=== PATIENT | female | born 1935 | race Caucasian/White ===

== ENCOUNTER 2017-03-15 13:34 | Inpatient (IN) | payer MEDICARE ==
[2017-03-15] MEDS ORDERED: MAGNESIUM SULFATE-D5W PMX 1 GM in DEXTROSE/WATER 1 100ML.BAG IVPB STA (14:01)
[2017-03-15] MEDS ORDERED: methylPREDNISolone SOD SUCCI 125 MG/2 ML VIAL IV STA (14:01)
[2017-03-15] MEDS ORDERED: IPRATROPIUM-ALBUTEROL 3 ML NEB INHALATION STA (14:01)
[2017-03-15] MEDS ORDERED: SODIUM CHLORIDE 0.9% 1,000 ML IV STA (14:01)
--- NOTE | 2017-03-15 14:05 | ED ---
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 She was sent here from a clinic for evaluation she does have an oxygen concentrator which is not helping. The patient denies any chest pain is very severe dyspnea and dyspnea on exertion. MD Complaint: shortness of breath, cough - Related Data Home Medications Medication Instructions Recorded Confirmed Levothyroxine Sodium [Synthroid] 50 mcg PO DAILY 04/01/14 03/15/17 Metoprolol Tartrate [Lopressor] 12.5 mg PO BID 04/01/14 03/15/17 levETIRAcetam [Keppra] 1,000 mg PO BID 04/01/14 03/15/17 Multivitamins, Thera [Multivitamin 1 tab PO DAILY 06/22/14 03/15/17 (formulary)] Budesonide [Pulmicort] 0.5 mg INHALATION RT-BID 04/01/15 03/15/17 Donepezil [Aricept] 10 mg PO BID 04/01/15 03/15/17 Cranberry Fruit Concentrate [Azo 500 mg PO BID 03/15/17 03/15/17 Cranberry] Vitamin B Complex 1 cap PO DAILY 03/15/17 03/15/17 Allergies Allergy/AdvReac Type Severity Reaction Status Date / Time alprazolam [From Xanax] AdvReac Hallucinati Verified 03/15/17 14:39 ons lorazepam [From Ativan] AdvReac Hallucinati Verified 03/15/17 14:39 ons phenytoin sodium AdvReac Hallucinati Verified 03/15/17 14:39 [From Dilantin] ons Review of Systems ROS Statement: Those systems with pertinent positive or pertinent negative responses have been documented in the HPI. ROS Other: All systems not noted in ROS Statement are negative. Past Medical History Past Medical History: Asthma, Heart Failure, COPD, CVA/TIA, Dementia, GERD/ Reflux, Hearing Disorder / Deafness, Hyperlipidemia, Hypertension, Myocardial Infarction ([place]), Osteoarthritis (OA), Pneumonia, Seizure Disorder, Sleep Apnea/ CPAP/BIPAP, Thyroid Disorder Additional Past Medical History / Comment(s): hypothyroid, UTI, FEBRILE SEIZURES , TIA,TINNITUS, MURMUR BRONCHITIS,EMPHYSEMA,UTI, VERY [place], STATED NEEDS NEW GLASSES(FOR READING), SLEEP APNEA BUT DOES'NT USE CPAP MACHINE,PAST HX C-DIFF DATE UNK Last Myocardial Infarction Date:: UNK History of Any Multi-Drug Resistant Organisms: None Reported Past Surgical History: Back Surgery Additional Past Surgical History / Comment(s): LAMECTOMY, CARPAL TUNNEL, RT HAND SX Past Anesthesia/Blood Transfusion Reactions: No Reported Reaction Past Psychological History: Anxiety Smoking Status: Never smoker Past Alcohol Use History: None Reported Past Drug Use History: None Reported - Past Family History Father Additional Family Medical History / Comment(s): AT AGE 89 Mother Family Medical History: Hypertension Additional Family Medical History / Comment(s): AT AGE 47. HAD HX RHEUMATIC FEVER General Exam - General Exam Comments Initial Comments: This is a well-developed asthenic appearing female who is in respiratory distress Limitations: no limitations General appearance: alert, anxious, in distress Head exam: Present: atraumatic, normocephalic, normal inspection Eye exam: Present: normal appearance, PERRL, EOMI. Absent: scleral icterus, conjunctival injection, periorbital swelling ENT exam: Present: normal exam, mucous membranes moist Neck exam: Present: normal inspection. Absent: tenderness, meningismus, lymphadenopathy Respiratory exam: Present: wheezes, accessory muscle use, decreased breath sounds. Absent: respiratory distress, rales, rhonchi, stridor Cardiovascular Exam: Present: regular rate, normal rhythm, normal heart sounds. Absent: systolic murmur, diastolic murmur, rubs, gallop, clicks GI/Abdominal exam: Present: soft, normal bowel sounds. Absent: distended, tenderness, guarding, rebound, rigid Extremities exam: Present: normal inspection, full ROM, normal capillary refill. Absent: tenderness, pedal edema, joint swelling, calf tenderness Back exam: Present: normal inspection Neurological exam: Present: alert, oriented X3, CN II-XII intact Psychiatric exam: Present: normal affect, normal mood Skin exam: Present: warm, dry, intact, normal color. Absent: rash Course Vital Signs 03/15/17 03/15/17 03/15/17 13:49 14:30 14:41 Temperature 97.9 F Pulse Rate 85 88 88 Respiratory 28 H Rate Blood Pressure 159/105 O2 Sat by Pulse 88 L Oximetry - Reevaluation(s) Reevaluation #1: 03/15/17 15:57 Reevaluation patient reveals minimal improvement thus far. Medical Decision Making - Medical Decision Making Reevaluation patient reveals she still feeling very short of breath so wheezing hypoxemic. She will be admitted for inpatient treatment. - Lab Data Result diagrams: 03/15/17 14:10 03/15/17 14:10 Lab Results 03/15/17 03/15/17 03/15/17 Range/Units 14:10 14:10 14:10 WBC 6.5 (3.8-10.6) k/uL RBC 4.18 (3.80-5.40) m/uL Hgb 13.1 (11.4-16.0) gm/dL Hct 42.1 (34.0-46.0) % MCV 100.7 H (80.0-100.0) fL MCH 31.4 (25.0-35.0) pg MCHC 31.2 (31.0-37.0) g/dL RDW 14.6 (11.5-15.5) % Plt Count 247 (150-450) k/uL Neutrophils % 54 % Lymphocytes % 29 % Monocytes % 7 % Eosinophils % 7 % Basophils % 1 % Neutrophils # 3.5 (1.3-7.7) k/uL Lymphocytes # 1.9 (1.0-4.8) k/uL Monocytes # 0.5 (0-1.0) k/uL Eosinophils # 0.5 (0-0.7) k/uL Basophils # 0.1 (0-0.2) k/uL Hypochromasia Slight Macrocytosis Slight PT (9.0-12.0) sec INR (<1.2) APTT (22.0-30.0) sec Sodium 142 (137-145) mmol/L Potassium 4.6 (3.5-5.1) mmol/L Chloride 108 H (98-107) mmol/L Carbon Dioxide 23 (22-30) mmol/L Anion Gap 11 mmol/L BUN 13 (7-17) mg/dL Creatinine 0.60 (0.52-1.04) mg/dL Est GFR (MDRD) Af Amer >60 (>60 ml/min/1.73 sqM) Est GFR (MDRD) Non-Af >60 (>60 ml/min/1.73 sqM) Glucose 111 H (74-99) mg/dL Calcium 10.3 H (8.4-10.2) mg/dL Magnesium 1.8 (1.6-2.3) mg/dL Total Bilirubin 0.5 (0.2-1.3) mg/dL AST 27 (14-36) U/L ALT 32 (9-52) U/L Alkaline Phosphatase 168 H (38-126) U/L Total Creatine Kinase 75 (30-135) U/L CK-MB (CK-2) 2.6 H* (0.0-2.4) ng/mL CK-MB (CK-2) Rel Index 3.5 Troponin I <0.012 (0.000-0.034) ng/mL NT-Pro-B Natriuret Pep pg/mL Total Protein 7.2 (6.3-8.2) g/dL Albumin 3.8 (3.5-5.0) g/dL 03/15/17 03/15/17 Range/Units 14:10 14:27 WBC (3.8-10.6) k/uL RBC (3.80-5.40) m/uL Hgb (11.4-16.0) gm/dL Hct (34.0-46.0) % MCV (80.0-100.0) fL MCH (25.0-35.0) pg MCHC (31.0-37.0) g/dL RDW (11.5-15.5) % Plt Count (150-450) k/uL Neutrophils % % Lymphocytes % % Monocytes % % Eosinophils % % Basophils % % Neutrophils # (1.3-7.7) k/uL Lymphocytes # (1.0-4.8) k/uL Monocytes # (0-1.0) k/uL Eosinophils # (0-0.7) k/uL Basophils # (0-0.2) k/uL Hypochromasia Macrocytosis PT 10.9 (9.0-12.0) sec INR 1.1 (<1.2) APTT 24.7 (22.0-30.0) sec Sodium (137-145) mmol/L Potassium (3.5-5.1) mmol/L Chloride (98-107) mmol/L Carbon Dioxide (22-30) mmol/L Anion Gap mmol/L BUN (7-17) mg/dL Creatinine (0.52-1.04) mg/dL Est GFR (MDRD) Af Amer (>60 ml/min/1.73 sqM) Est GFR (MDRD) Non-Af (>60 ml/min/1.73 sqM) Glucose (74-99) mg/dL Calcium (8.4-10.2) mg/dL Magnesium (1.6-2.3) mg/dL Total Bilirubin (0.2-1.3) mg/dL AST (14-36) U/L ALT (9-52) U/L Alkaline Phosphatase (38-126) U/L Total Creatine Kinase (30-135) U/L CK-MB (CK-2) (0.0-2.4) ng/mL CK-MB (CK-2) Rel Index Troponin I (0.000-0.034) ng/mL NT-Pro-B Natriuret Pep 732 pg/mL Total Protein (6.3-8.2) g/dL Albumin (3.5-5.0) g/dL - Radiology Data Radiology results: report reviewed (I did review the imaging and reports no evidence of acute pulmonary infiltrates), image reviewed Critical Care Time Critical Care Time: Yes Critical Care Time: 31 minutes of critical care time which includes initial presentation with history physical labs x-rays reevaluation the patient several occasions. Discussed with the patient regarding findings discussed with the main physician admission orders and documentation of the above. Disposition Clinical Impression: Adult respiratory distress syndrome, Acute exacerbation of chronic obstructive airways disease, Hypoxemia Disposition: ADMITTED IP TO THIS [facility] Condition: Stable Referrals: Kilo De La Paz MD [Primary Care Provider] - 1-2 days
[2017-03-15 14:34] LABS: Basophils # (A) 0.1 k/uL (0-0.2); Basophils % (A) 1 %; CH 30.8; CHCM 30.7; Eosinophils # (A) 0.5 k/uL (0-0.7); Eosinophils % (A) 7 %; HCT 42.1 % (34.0-46.0); HDW 2.43; HGB 13.1 gm/dL (11.4-16.0); Hypochromasia Slight; Luc # (Auto) 0.13; Luc % (Auto) 2; Lymphocytes # (A) 1.9 k/uL (1.0-4.8); Lymphocytes % (A) 29 %; MCH 31.4 pg (25.0-35.0); MCHC 31.2 g/dL (31.0-37.0); MCV 100.7 fL (80.0-100.0); Macrocytosis Slight; Mean Platelet Volume 7.5; Monocytes # (A) 0.5 k/uL (0-1.0); Monocytes % (A) 7 %; Neutrophils # (A) 3.5 k/uL (1.3-7.7); Neutrophils % (A) 54 %; RBC 4.18 m/uL (3.80-5.40); RDW 14.6 % (11.5-15.5); WBC 6.5 k/uL (3.8-10.6); WBC (Perox) 6.78
[2017-03-15 14:48] LABS: ALT 32 U/L (9-52); AST 27 U/L (14-36); Alkaline Phosphatase 168 U/L (38-126); Anion Gap 11 mmol/L; Blood Urea Nitrogen 13 mg/dL (7-17); Calcium 10.3 mg/dL (8.4-10.2); Carbon Dioxide 23 mmol/L (22-30); Chloride 108 mmol/L (98-107); Glucose 111 mg/dL (74-99); Magnesium 1.8 mg/dL (1.6-2.3); Non-African American GFR(MDRD) >60 (>60 ml/min/1.73 sqM); Potassium 4.6 mmol/L (3.5-5.1); Sodium 142 mmol/L (137-145); Total Bilirubin 0.5 mg/dL (0.2-1.3); Total Protein 7.2 g/dL (6.3-8.2)
[2017-03-15 14:53] LABS: INR 1.1 (<1.2); Partial Thromboplastin Time 24.7 sec (22.0-30.0); Prothrombin Time 10.9 sec (9.0-12.0)
[2017-03-15 14:54] LABS: Creatine Kinase 75 U/L (30-135)
--- NOTE | 2017-03-15 15:03 | XR ---
EXAMINATION TYPE: XR chest 2V DATE OF EXAM: 03/15/2017 COMPARISON: 08/01/15 HISTORY: Shortness of breath TECHNIQUE: Frontal and lateral views of the chest are obtained. FINDINGS: Scattered senescent parenchymal changes noted. Hyperinflation compatible with COPD. No evidence for infiltrate. No evidence for atelectasis. Heart size is stable. Mediastinal structures are stable and grossly unremarkable. No evidence for hilar prominence. Degenerative changes dorsal spine. IMPRESSION: 1. No evidence for acute pulmonary disease.
[2017-03-15 15:06] LABS: Troponin I <0.012 ng/mL (0.000-0.034)
[2017-03-15 15:23] LABS: Creatine Kinase MB 2.6 ng/mL (0.0-2.4)
[2017-03-15] MEDS: SODIUM CHLORIDE 0.9% 1,000 ML IV SCH ×2 (17:56→22:43)
[2017-03-15] MEDS: BUDESONIDE 1 MG/2 ML NEBU INHALATION SCH (19:50)
[2017-03-15] MEDS: IPRATROPIUM-ALBUTEROL 3 ML NEB INHALATION SCH ×2 (19:50→23:44)
[2017-03-15 20:49] LABS: Glucose,Whole Blood 130 mg/dL (75-99)
[2017-03-15] MEDS ORDERED: NON-FORMULARY DRUG (Cranberry Fruit Concentrate [Azo Cranberry] 500 MG) PO SCH (21:00)
[2017-03-15] MEDS: methylPREDNISolone SOD SUCCI 40 MG/ML 1 ML VIAL IV SCH (22:42)
[2017-03-15] MEDS: DONEPEZIL 10 MG TAB PO SCH (22:42)
[2017-03-15] MEDS: levETIRAcetam 500 MG TAB PO SCH (22:42)
[2017-03-15] MEDS: METOPROLOL TARTRATE 12.5 MG TAB PO SCH (22:43)
[2017-03-15] MEDS: ACETAMINOPHEN TAB 325 MG TAB PO PRN (23:27)
[2017-03-16] MEDS ORDERED: methylPREDNISolone SOD SUCCI 125 MG/2 ML VIAL IV SCH
[2017-03-16] MEDS: IPRATROPIUM-ALBUTEROL 3 ML NEB INHALATION SCH ×6 (03:11→23:33)
--- NOTE | 2017-03-16 05:02 | HP ---
HISTORY AND PHYSICAL DATE OF ADMISSION: 03/15/2017 PRESENTING COMPLAINT: Short of breath, wheezing. HISTORY OF PRESENTING COMPLAINT: A pleasant 81-year-old patient of Dr. De La Paz. Chronic stable medical conditions include dementia, GERD, hard of hearing, hyperlipidemia, hypertension, seizure, sleep apnea, hypothyroid. Patient has got home oxygen. Uses a walker to get about. Patient presented with worsening short of breath, cough. Slight congestion, no sputum, not able to breathe. Home oxygen remains. No fever. Decreased appetite. Patient is hard of hearing. REVIEW OF SYSTEMS: CONSTITUTIONAL: Tired. HEENT: Decreased hearing. RESPIRATORY: As above. CARDIOVASCULAR: None. GASTROINTESTINAL: Heartburn. GENITOURINARY: None. MUSCULOSKELETAL: Some pain in different joints. DERMATOLOGICAL: None. HEMATOLOGIC: None. LYMPHATIC: None. PSYCHIATRY: Forgetful. NEUROLOGICAL: None. PAST HISTORY: Past history of stroke, dementia, GERD, hard of hearing, hyperlipidemia, hypertension, [place], osteoarthritis, seizures, obstructive sleep apnea, hypothyroid, home oxygen. PAST SURGICAL HISTORY: Back surgery, carpal tunnel right hand. SOCIAL HISTORY: No smoking. No alcohol. Lives with daughter. Use to work in the factory. FAMILY HISTORY: Reviewed, noncontributory to presentation. HOME MEDICATIONS: 1. Keppra 1000 mg p.o. b.i.d. 2. Vitamin B complex 1 capsule p.o. daily. 3. Multivitamin 1 tablet p.o. daily. 4. Lopressor 12.5 b.i.d. 5. Synthroid 50 mcg p.o. daily. 6. Aricept 10 mg p.o. b.i.d. 7. Azo cranberry 500 mg p.o. b.i.d. 8. Pulmicort 0.5 nebulizer b.i.d. ALLERGIES: Allergies to XANAX, ATIVAN, DILANTIN causing hallucinations. PHYSICAL EXAMINATION: On examination, temperature 97.9 pulse 85, respiration 20, blood pressure 159/105, pulse 88% on 2 L. GENERAL APPEARANCE: Sitting up, short of breath. EYES: Pupils equal. Conjunctivae normal. HENT: Oral cavity normal. NECK: JVD not raised. Mass not palpable. RESPIRATORY: Effort increased. LUNGS: Diminished breath sounds. Prolonged expiration. CARDIOVASCULAR: First and second sounds normal. No edema. ABDOMEN: Soft, nontender. Liver and spleen not palpable. LYMPHATIC: No lymph nodes palpable in the neck or axillae. PSYCHIATRY: Able to answer simple questions. Mood affect anxious appearing. NEUROLOGICAL: Pupils equal. Cranial nerves grossly intact. Power and sensation grossly intact. MUSCULOSKELETAL: Evidence of osteoarthritis of different joints. INVESTIGATIONS: White count 6.5, hemoglobin 13.1. Potassium 4.6. BUN and creatinine normal. Troponin negative. Chest x-ray nil acute. ASSESSMENT: 1. 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 2. Alzheimer's dementia, late onset type. 3. Gastroesophageal reflux disease. 4. Hard of hearing. 5. Hyperlipidemia. 6. Hypertension. 7. Primary osteoarthritis multiple joints, bilateral. 8. Obstructive sleep apnea. 9. Hypothyroid. 10.Chronic hypoxic respiratory failure on home oxygen. 11.Gait dysfunction, uses a wheel walker. PLAN: Patient is put on DuoNeb, nebulized bronchodilators. Home medications are resumed. Care was discussed with the patient. Questions were answered. MMODL / IJN: [id number] /
[2017-03-16] MEDS: methylPREDNISolone SOD SUCCI 40 MG/ML 1 ML VIAL IV SCH ×3 (06:04→21:45)
[2017-03-16] MEDS: LEVOTHYROXINE 50 MCG TAB PO SCH (06:04)
[2017-03-16 07:07] LABS: Glucose,Whole Blood 116 mg/dL (75-99)
[2017-03-16] MEDS: BUDESONIDE 1 MG/2 ML NEBU INHALATION SCH ×2 (07:24→19:10)
[2017-03-16] MEDS: DONEPEZIL 10 MG TAB PO SCH ×2 (09:49→21:45)
[2017-03-16] MEDS: levETIRAcetam 500 MG TAB PO SCH ×2 (09:50→21:44)
[2017-03-16] MEDS: METOPROLOL TARTRATE 12.5 MG TAB PO SCH ×2 (09:50→21:44)
[2017-03-16 11:38] LABS: Glucose,Whole Blood 138 mg/dL (75-99)
[2017-03-16] MEDS: INSULIN LISPRO (humaLOG) 300 UNIT/3 ML VIAL SQ SCH ×3 (12:30→21:42)
[2017-03-16] MEDS: B COMPLEX-VIT C-VIT E-ZINC 1 EACH TAB PO SCH (12:30)
[2017-03-16] MEDS: MULTIVITAMINS, THERA 1 EACH TAB PO SCH (12:30)
[2017-03-16] MEDS: SODIUM CHLORIDE 0.9% 1,000 ML IV SCH (12:31)
[2017-03-16 13:49] LABS: Hemoglobin A1C 5.1 % (4.2-6.1)
--- NOTE | 2017-03-16 15:30 | P.PN ---
Progress Note - Text DATE OF SERVICE: 03/16/2017 PRESENTING COMPLAINT: Short of breath wheezing HISTORY OF PRESENT ILLNESS: 81-year-old patient presented with worsening shortness of breath cough and congestion, uses home oxygen. Admitted for acute chronic obstructive pulmonary disease exacerbation. INTERVAL HISTORY: 03/16/2017: Lying in bed appears comfortable. Coarse cough noted, mostly bronchial in nature. No sputum production. Requires some assistance to and from the bathroom, tolerating her diet eating about 50%. Last BM prior to admission. REVIEW OF SYSTEMS: Done for constitutional ,cardiovascular, GI, pulmonary with relevant findings as above. CURRENT MEDICATIONS Albuterol, Aricept, Mucinex 1200 mg by mouth 3 times a day, Keppra thousand grams by mouth twice a day Synthroid 50 g, Solu-Medrol 40 mg IV every 8 hours PHYSICAL EXAM VITAL SIGNS: Dr. Dang.7, pulse 70, respirations 18, blood pressure 127/60, oxygen saturation 96 % on 2 L GENERAL APPEARANCE: Lying in bed, mildly anxious. EYES: Pupils equal. Conjunctiva normal. NECK: JVD not raised. Mass not palpable. RESPIRATORY: Respiratory effort normal. Lungs coarse bronchial breath sounds to auscultation. CARDIOVASCULAR: First and second sounds normal. No edema. ABDOMEN: Soft. Liver and spleen not palpable. No tenderness. No mass palpable. PSYCHIATRY: Alert and oriented x3. 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 -Alzheimer's dementia, late onset type. -Gastroesophageal reflux disease. -Hard of hearing. -Hyperlipidemia. -Essential Hypertension. -Primary osteoarthritis multiple joints, bilateral. -Obstructive sleep apnea. -Hypothyroidism. -Chronic hypoxic respiratory failure on home oxygen. -Gait dysfunction uses a wheeled walker. PLAN: Humidification added to oxygen, Mucinex twice a day added, breathing treatments , Solu-Medrol IV continue. Plan of care discussed with the patient at the bedside we will continue to monitor closely. TEST BORING CREW CHIEF statement: Patient was seen and examined by nurse practitioner Saray Ordaz and all elements of the case discussed with attending Dr. Chavarria
[2017-03-16 16:30] LABS: Glucose,Whole Blood 120 mg/dL (75-99)
[2017-03-16] MEDS: guaiFENesin 600 MG TABLET.ER PO SCH ×2 (17:07→21:45)
--- NOTE | 2017-03-16 19:12 | PN ---
PROGRESS NOTE DATE OF SERVICE: 03/16/17. ATTENDING NOTE: Patient seen and examined by me. I discussed with my nurse practitioner, Ms. Ordaz. Patient admitted with COPD exacerbation. Breathing is a bit better. Still got a congested cough. Not bringing up much. Eating a bit better. PHYSICAL EXAMINATION: Afebrile. Pulse 92, blood pressure 127/60. Lungs some expiratory crackles anteriorly, decreased breath sounds and wheezing posteriorly. Accu-Cheks are noted. 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 PLAN: Continue the patient on IV Solu-Medrol, nebulized bronchodilators. We will humidify the oxygen and also add Mucinex. Care was discussed with the patient. Encouraged to be out of bed. MMODL / IJN: [id number] /
[2017-03-16 20:33] LABS: Glucose,Whole Blood 111 mg/dL (75-99)
[2017-03-17] MEDS: SODIUM CHLORIDE 0.9% 1,000 ML IV SCH ×2 (01:00→11:55)
[2017-03-17] MEDS: IPRATROPIUM-ALBUTEROL 3 ML NEB INHALATION SCH ×5 (03:59→19:33)
[2017-03-17] MEDS: methylPREDNISolone SOD SUCCI 40 MG/ML 1 ML VIAL IV SCH ×2 (06:21→14:09)
[2017-03-17] MEDS: LEVOTHYROXINE 50 MCG TAB PO SCH (06:21)
[2017-03-17 07:17] LABS: Glucose,Whole Blood 125 mg/dL (75-99)
[2017-03-17] MEDS: BUDESONIDE 1 MG/2 ML NEBU INHALATION SCH ×2 (07:18→19:33)
[2017-03-17] MEDS: INSULIN LISPRO (humaLOG) 300 UNIT/3 ML VIAL SQ SCH ×4 (07:19→20:16)
[2017-03-17] MEDS: guaiFENesin 600 MG TABLET.ER PO SCH ×2 (08:04→20:16)
[2017-03-17] MEDS: DONEPEZIL 10 MG TAB PO SCH ×2 (08:04→20:16)
[2017-03-17] MEDS: levETIRAcetam 500 MG TAB PO SCH ×2 (08:05→20:16)
[2017-03-17] MEDS: METOPROLOL TARTRATE 12.5 MG TAB PO SCH ×2 (08:06→20:16)
[2017-03-17] MEDS: B COMPLEX-VIT C-VIT E-ZINC 1 EACH TAB PO SCH (12:25)
[2017-03-17] MEDS: MULTIVITAMINS, THERA 1 EACH TAB PO SCH (12:25)
[2017-03-17 13:08] LABS: Glucose,Whole Blood 115 mg/dL (75-99)
--- NOTE | 2017-03-17 16:09 | P.PN ---
Progress Note - Text Progress Note Date: 03/17/17 DATE OF SERVICE: 03/17/2017 PRESENTING COMPLAINT: Short of breath wheezing HISTORY OF PRESENT ILLNESS: 81-year-old patient presented with worsening shortness of breath cough and congestion, uses home oxygen. Admitted for acute chronic obstructive pulmonary disease exacerbation. INTERVAL HISTORY: 03/17/2017: Lying in bed appears uncomfortable states she does not feel well. Continues to have a coarse cough however much improved from yesterday. Remains bronchial in nature. Occasional sputum production. Appetite is low barely eating 20% of her meals. Ambulatory with some assistance to and from the bathroom. Last BM prior to admission. IV fluids continue. 03/16/2017: Lying in bed appears comfortable. Coarse cough noted, mostly bronchial in nature. No sputum production. Requires some assistance to and from the bathroom, tolerating her diet eating about 50%. Last BM prior to admission. REVIEW OF SYSTEMS: Done for constitutional ,cardiovascular, GI, pulmonary with relevant findings as above. CURRENT MEDICATIONS Albuterol, Aricept, Mucinex 1200 mg by mouth 3 times a day, Keppra thousand grams by mouth twice a day Synthroid 50 g, prednisone 40 mg daily PHYSICAL EXAM VITAL SIGNS: Temperature 97.4, pulse 72, respiratory rate 20, blood pressure 142/63, oxygen saturation 98% on 2 L. GENERAL APPEARANCE: Lying in bed, mildly anxious. EYES: Pupils equal. Conjunctiva normal. NECK: JVD not raised. Mass not palpable. RESPIRATORY: Respiratory effort normal. Lungs coarse bronchial breath sounds to auscultation. CARDIOVASCULAR: First and second sounds normal. No edema. ABDOMEN: Soft. Liver and spleen not palpable. No tenderness. No mass palpable. PSYCHIATRY: Alert and oriented x3. 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 -Alzheimer's dementia, late onset type. -Gastroesophageal reflux disease. -Hard of hearing. -Hyperlipidemia. -Essential Hypertension. -Primary osteoarthritis multiple joints, bilateral. -Obstructive sleep apnea. -Hypothyroidism. -Chronic hypoxic respiratory failure on home oxygen. -Gait dysfunction uses a wheeled walker. PLAN: Humidification added to oxygen, Mucinex twice a day added, breathing treatments , IV Solu-Medrol switched to prednisone by mouth daily.. Plan of care discussed with the patient at the bedside we will continue to monitor closely. COMPLIANCE COUNSEL statement: Patient was seen and examined by nurse practitioner Saray Ordaz and all elements of the case discussed with attending Dr. Chavarria
[2017-03-17 17:32] LABS: Glucose,Whole Blood 85 mg/dL (75-99)
--- NOTE | 2017-03-17 18:28 | PN ---
PROGRESS NOTE DATE OF SERVICE: 03/17/17. ATTENDING NOTE: Patient was seen and examined by me. I discussed with my nurse practitioner, Ms. Ordaz. Patient admitted with COPD exacerbation. Still short of breath. Getting bouts of coughing. Not bringing up much. Short of breath still a shade better. PHYSICAL EXAMINATION: On examination, afebrile, blood pressure 140/63. Respiration 20. Lungs decreased breath sounds, expiratory wheezing. Tired appearing. Accu-Cheks are noted. ASSESSMENT: Acute severe chronic obstructive pulmonary disease exacerbation. Slow to respond. PLAN: Continue IV Cefazolin; Solu Medrol. Nebulized bronchodilators. Inhaled steroids. We will try oral prednisone. Care was discussed with the patient. Follow with Pulmonary. MMODL / IJN: [id number] /
[2017-03-17 20:23] LABS: Glucose,Whole Blood 91 mg/dL (75-99)
[2017-03-18] MEDS: IPRATROPIUM-ALBUTEROL 3 ML NEB INHALATION SCH ×7 (00:02→18:53)
[2017-03-18] MEDS: ACETAMINOPHEN TAB 325 MG TAB PO PRN ×3 (00:43→20:36)
[2017-03-18] MEDS: LEVOTHYROXINE 50 MCG TAB PO SCH (06:16)
[2017-03-18] MEDS: BUDESONIDE 1 MG/2 ML NEBU INHALATION SCH ×2 (07:07→18:52)
[2017-03-18 07:27] LABS: Glucose,Whole Blood 84 mg/dL (75-99)
[2017-03-18 07:54] LABS: Anion Gap 7 mmol/L; Blood Urea Nitrogen 24 mg/dL (7-17); Calcium 9.9 mg/dL (8.4-10.2); Carbon Dioxide 21 mmol/L (22-30); Chloride 111 mmol/L (98-107); Glucose 85 mg/dL (74-99); Non-African American GFR(MDRD) >60 (>60 ml/min/1.73 sqM); Potassium 4.1 mmol/L (3.5-5.1); Sodium 139 mmol/L (137-145)
[2017-03-18] MEDS: INSULIN LISPRO (humaLOG) 300 UNIT/3 ML VIAL SQ SCH ×4 (08:52→20:32)
[2017-03-18] MEDS: guaiFENesin 600 MG TABLET.ER PO SCH ×2 (08:53→20:34)
[2017-03-18] MEDS: levETIRAcetam 500 MG TAB PO SCH ×2 (08:53→20:34)
[2017-03-18] MEDS: DONEPEZIL 10 MG TAB PO SCH ×2 (08:53→20:35)
[2017-03-18] MEDS: METOPROLOL TARTRATE 12.5 MG TAB PO SCH ×2 (08:53→20:36)
[2017-03-18] MEDS ORDERED: predniSONE 20 MG TAB PO SCH (09:00)
--- NOTE | 2017-03-18 11:50 | P.CNPUL ---
History of Present Illness Consult date: 03/18/17 Reason for consult: dyspnea, cough, COPD Chief complaint: Dyspnea, chest congestion History of present illness: This is a 81-year-old female who sees Dr. Kauffman for her COPD, has been in the hospital since 03/15/2017 for complaints of difficulty breathing and chest congestion which got progressively worse the night before admission. She denies fevers, chills. She has been increasingly wheezy, coughing, but unable to expectorate any sputum. She is on home oxygen at home, as well as Pulmicort nebulizer treatments. On presentation she was hypoxemic on 2 L per nasal cannula with oxygen saturations at 88%, tachypneic, with accessory muscle use, wheezing and decreased air entry bilaterally. Chest x-ray from 03/15/2017 has been reviewed and showed no evidence for infiltrate, atelectasis or acute pulmonary disease. Hyperinflation consistent with COPD is present. On examination today an elderly female, who is very hard of hearing, is resting in bed comfortably, states she is feeling better today. Denies significant sputum production. She has been afebrile, hemodynamically stable, with no signs of respiratory distress. No use of accessory muscles, no cough or hemoptysis. She is on 3 L with sats around 98%. Respirations are even and nonlabored. She is on combination of oral prednisone which will increase to IV Solu-Medrol 60 every 6 hours, DuoNeb and Pulmicort. We will add Perforomist 20 omi nebulizer treatments twice a day, will add Bactrim DS for antibiotic coverage. Anticipate further improvement, will reevaluate in 24 hours. Review of Systems Constitutional: Denies chills, Denies fever Eyes: denies blurred vision, denies pain Ears, nose, mouth and throat: Reports as per HPI (Clinical pharmacist), Denies headache, Denies sore throat Cardiovascular: Reports decreased exercise tolerance, Reports dyspnea on exertion, Reports shortness of breath Respiratory: Reports dyspnea, Reports home oxygen, Reports wheezing, Denies cough Gastrointestinal: Denies abdominal pain, Denies diarrhea, Denies nausea, Denies vomiting Genitourinary: Denies dysuria, Denies hematuria Musculoskeletal: Denies myalgias Integumentary: Denies pruritus, Denies rash Neurological: Denies numbness, Denies weakness Psychiatric: Denies anxiety, Denies depression Endocrine: Denies fatigue, Denies weight change Past Medical History Past Medical History: Asthma, Heart Failure, COPD, CVA/TIA, Dementia, GERD/ Reflux, Hearing Disorder / Deafness, Hyperlipidemia, Hypertension, Myocardial Infarction (PR), Osteoarthritis (OA), Pneumonia, Seizure Disorder, Sleep Apnea/ CPAP/BIPAP, Thyroid Disorder Additional Past Medical History / Comment(s): hypothyroid, UTI, FEBRILE SEIZURES , TIA,TINNITUS, MURMUR BRONCHITIS,EMPHYSEMA,UTI, VERY JAMUL, STATED NEEDS NEW GLASSES(FOR READING), SLEEP APNEA BUT DOES'NT USE CPAP MACHINE,PAST HX C-DIFF DATE UNK Last Myocardial Infarction Date:: UNK History of Any Multi-Drug Resistant Organisms: None Reported Past Surgical History: Back Surgery Additional Past Surgical History / Comment(s): LAMECTOMY, CARPAL TUNNEL, RT HAND SX Past Anesthesia/Blood Transfusion Reactions: No Reported Reaction Smoking Status: Never smoker - Past Family History Father Additional Family Medical History / Comment(s): AT AGE 89 Mother Family Medical History: Hypertension Additional Family Medical History / Comment(s): AT AGE 47. HAD HX RHEUMATIC FEVER Medications and Allergies Home Medications Medication Instructions Recorded Confirmed Type Levothyroxine Sodium [Synthroid] 50 mcg PO DAILY 04/01/14 03/15/17 History Metoprolol Tartrate [Lopressor] 12.5 mg PO BID 04/01/14 03/15/17 History levETIRAcetam [Keppra] 1,000 mg PO BID 04/01/14 03/15/17 History Multivitamins, Thera [Multivitamin 1 tab PO DAILY 06/22/14 03/15/17 History (formulary)] Budesonide [Pulmicort] 0.5 mg INHALATION RT-BID 04/01/15 03/15/17 History Donepezil [Aricept] 10 mg PO BID 04/01/15 03/15/17 History Cranberry Fruit Concentrate [Azo 500 mg PO BID 03/15/17 03/15/17 History Cranberry] Vitamin B Complex 1 cap PO DAILY 03/15/17 03/15/17 History Allergies Allergy/AdvReac Type Severity Reaction Status Date / Time alprazolam [From Xanax] AdvReac Hallucinati Verified 03/15/17 14:39 ons lorazepam [From Ativan] AdvReac Hallucinati Verified 03/15/17 14:39 ons phenytoin sodium AdvReac Hallucinati Verified 03/15/17 14:39 [From Dilantin] ons Physical Exam Vitals: Vital Signs Temp Pulse Pulse Resp BP BP Pulse Ox 03/18/17 10:54 76 03/18/17 10:49 76 03/18/17 08:00 64 18 03/18/17 07:24 73 03/18/17 07:09 72 03/18/17 07:00 97.7 F 64 18 168/73 100 03/18/17 04:26 72 03/18/17 04:14 68 03/18/17 00:54 76 03/18/17 00:45 72 03/18/17 00:00 16 03/17/17 23:00 97.8 F 75 16 136/72 98 03/17/17 20:15 64 152/67 03/17/17 19:50 73 03/17/17 19:36 73 03/17/17 16:00 72 20 03/17/17 15:57 73 03/17/17 15:50 73 100 03/17/17 15:00 97.5 F L 65 16 144/66 98 03/17/17 12:14 82 03/17/17 11:55 74 20 Intake and Output 03/17/17 03/18/17 03/18/17 22:59 06:59 14:59 Intake Total 300 Balance 300 Intake: Oral 300 Other: Voiding Method Toilet Toilet Toilet # Voids 2 1 1 # Bowel Movements 2 Weight 58.513 kg 39 kg Elderly female, awake alert, in no acute distress. Very hard of hearing Results - Laboratory Findings CBC and BMP: 03/15/17 14:10 03/18/17 06:55 PT/INR, D-dimer PT 10.9 sec (9.0-12.0) 03/15/17 14:27 INR 1.1 (<1.2) 03/15/17 14:27 Abnormal lab findings: Abnormal Labs 03/15/17 03/15/17 03/15/17 14:10 14:10 14:10 MCV 100.7 H Chloride 108 H Carbon Dioxide BUN Glucose 111 H POC Glucose (mg/dL) Calcium 10.3 H Alkaline Phosphatase 168 H CK-MB (CK-2) 2.6 H* 03/15/17 03/16/17 03/16/17 20:37 07:02 11:26 MCV Chloride Carbon Dioxide BUN Glucose POC Glucose (mg/dL) 130 H 116 H 138 H Calcium Alkaline Phosphatase CK-MB (CK-2) 03/16/17 03/16/17 03/17/17 16:14 20:32 07:13 MCV Chloride Carbon Dioxide BUN Glucose POC Glucose (mg/dL) 120 H 111 H 125 H Calcium Alkaline Phosphatase CK-MB (CK-2) 03/17/17 03/18/17 13:06 06:55 MCV Chloride 111 H Carbon Dioxide 21 L BUN 24 H Glucose POC Glucose (mg/dL) 115 H Calcium Alkaline Phosphatase CK-MB (CK-2) - Diagnostic Findings Chest x-ray: report reviewed Assessment and Plan Plan: Assessment: #1. Acute on chronic hypoxic respiratory failure secondary to COPD exacerbation , on home oxygen #2. Alzheimer's dementia. #3. Obstructive sleep apnea. #4. History of gastroesophageal reflux disease #5. Hyperlipidemia. #6. Hypertension. #7. Osteoarthritis. #8. Hypothyroidism. #9. Gait dysfunction. Plan: We will switch oral prednisone to IV Solu-Medrol 60 mg every 6 hours, will add Perforomist nebulized treatments, Continue on Pulmicort and DuoNeb's around-the- clock. We will add Bactrim DS twice a day for a manic coverage. Increase activity as tolerated. We'll closely follow with you. I performed a history & physical examination of the patient and discussed their management with my nurse practitioner, Veronique Cobb. I reviewed the nurse practitioner's note and agree with the documented findings and plan of care.
[2017-03-18 12:28] LABS: Glucose,Whole Blood 145 mg/dL (75-99)
[2017-03-18] MEDS: B COMPLEX-VIT C-VIT E-ZINC 1 EACH TAB PO SCH (12:49)
[2017-03-18] MEDS: MULTIVITAMINS, THERA 1 EACH TAB PO SCH (12:49)
[2017-03-18] MEDS: methylPREDNISolone SOD SUCCI 125 MG/2 ML VIAL IV SCH ×3 (13:24→23:35)
--- NOTE | 2017-03-18 15:42 | P.PN ---
Progress Note - Text DATE OF SERVICE: 03/18/2017 PRESENTING COMPLAINT: Short of breath wheezing HISTORY OF PRESENT ILLNESS: 81-year-old patient presented with worsening shortness of breath cough and congestion, uses home oxygen. Admitted for acute chronic obstructive pulmonary disease exacerbation. INTERVAL HISTORY: 03/18/2017: Lying in bed appears uncomfortable states she continues to not feel well having difficulty breathing. Cough is improved but still has some coarseness about it. No sputum production, remains bronchial in nature. Appetite is low barely eating 20-30% of her meals. Ambulatory with some assistance to and from the bathroom must use a walker. 03/17/2017: Lying in bed appears uncomfortable states she does not feel well. Continues to have a coarse cough however much improved from yesterday. Remains bronchial in nature. Occasional sputum production. Appetite is low barely eating 20% of her meals. Ambulatory with some assistance to and from the bathroom. Last BM prior to admission. IV fluids continue. 03/16/2017: Lying in bed appears comfortable. Coarse cough noted, mostly bronchial in nature. No sputum production. Requires some assistance to and from the bathroom, tolerating her diet eating about 50%. Last BM prior to admission. REVIEW OF SYSTEMS: Done for constitutional ,cardiovascular, GI, pulmonary with relevant findings as above. CURRENT MEDICATIONS Albuterol, Aricept, Mucinex 1200 mg by mouth 3 times a day, Keppra thousand grams by mouth twice a day Synthroid 50 g, prednisone 40 mg daily PHYSICAL EXAM VITAL SIGNS: Temperature 97.7, pulse 64, respiratory rate 18, blood pressure 168/73, oxygen saturation 100% on 2 L GENERAL APPEARANCE: Lying in bed, mildly anxious. EYES: Pupils equal. Conjunctiva normal. NECK: JVD not raised. Mass not palpable. RESPIRATORY: Respiratory effort normal. Lungs coarse bronchial breath sounds to auscultation. CARDIOVASCULAR: First and second sounds normal. No edema. ABDOMEN: Soft. Liver and spleen not palpable. No tenderness. No mass palpable. PSYCHIATRY: Alert and oriented x3. Mood and affect mildly anxious INVESTIGATIONS: chloride 111, carbon dioxide 21, Accu-Cheks noted. 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 -Gastroesophageal reflux disease. -Hard of hearing. -Hyperlipidemia. -Essential Hypertension. -Primary osteoarthritis multiple joints, bilateral. -Obstructive sleep apnea. -Hypothyroidism. -Chronic hypoxic respiratory failure on home oxygen. -Gait dysfunction uses a wheeled walker. PLAN: Humidification added to oxygen,prednisone switched back to IV Solu-Medrol 60 mg every 6 hours fPerforomist nebulized treatments added as well as Pulmicort and DuoNeb's [id number]. Bactrim added for antibiotic coverage. Plan of care discussed with the patient at the bedside we will continue to monitor closely. TRANSITIONAL NURSE statement: Patient was seen and examined by nurse practitioner Saray Ordaz and all elements of the case discussed with attending Dr. Chavarria
[2017-03-18 16:14] LABS: Glucose,Whole Blood 158 mg/dL (75-99)
--- NOTE | 2017-03-18 16:59 | PN ---
PROGRESS NOTE DATE OF SERVICE: 03/18/17. ATTENDING NOTE: This patient seen and examined by me. I discussed with nurse practitioner, Ms. Ordaz. The patient got some wheezing and cough. Feeling tired. Eating somewhat better. PHYSICAL EXAMINATION: LUNGS: Decreased breath sounds, expiratory wheezing. Tired appearing. INVESTIGATIONS: Potassium 4.1, Accu-Cheks are noted. ASSESSMENT: Acute chronic obstructive pulmonary disease exacerbation, slowly improving. PLAN: Continue with humidified oxygen, Solu-Medrol, Pulmonary was consulted who did increase the dose of IV Solu-Medrol. Care was discussed with the patient. Follow. MMODL / IJN: [id number] /
[2017-03-18] MEDS: FORMOTEROL FUMARATE 20 MCG/2 ML NEBU INHALATION SCH (18:53)
[2017-03-18 20:28] LABS: Glucose,Whole Blood 122 mg/dL (75-99)
[2017-03-18] MEDS: SULFAMETHOX-TMP 800-160MG 1 EACH TAB PO SCH (20:37)
[2017-03-19] MEDS: IPRATROPIUM-ALBUTEROL 3 ML NEB INHALATION SCH ×6 (00:28→20:58)
[2017-03-19] MEDS: ACETAMINOPHEN TAB 325 MG TAB PO PRN ×2 (03:21→20:30)
[2017-03-19] MEDS: LEVOTHYROXINE 50 MCG TAB PO SCH (05:57)
[2017-03-19] MEDS: methylPREDNISolone SOD SUCCI 125 MG/2 ML VIAL IV SCH ×4 (05:58→23:45)
[2017-03-19 07:41] LABS: Glucose,Whole Blood 117 mg/dL (75-99)
[2017-03-19] MEDS: FORMOTEROL FUMARATE 20 MCG/2 ML NEBU INHALATION SCH ×2 (08:32→20:57)
[2017-03-19] MEDS: BUDESONIDE 1 MG/2 ML NEBU INHALATION SCH ×2 (08:32→20:57)
[2017-03-19] MEDS: SULFAMETHOX-TMP 800-160MG 1 EACH TAB PO SCH ×2 (09:09→20:31)
[2017-03-19] MEDS: DONEPEZIL 10 MG TAB PO SCH ×2 (09:10→20:31)
[2017-03-19] MEDS: METOPROLOL TARTRATE 12.5 MG TAB PO SCH ×2 (09:10→20:31)
[2017-03-19] MEDS: levETIRAcetam 500 MG TAB PO SCH ×2 (09:10→20:31)
[2017-03-19] MEDS: guaiFENesin 600 MG TABLET.ER PO SCH ×2 (09:10→20:30)
[2017-03-19] MEDS: INSULIN LISPRO (humaLOG) 300 UNIT/3 ML VIAL SQ SCH ×4 (09:16→20:32)
[2017-03-19 11:35] LABS: Glucose,Whole Blood 126 mg/dL (75-99)
--- NOTE | 2017-03-19 11:52 | P.PN ---
Subjective Progress Note Date: 03/19/17 Principal diagnosis: Dyspnea, cough, COPD This is a 81-year-old female who sees Dr. Kauffman for her COPD, has been in the hospital since 03/15/2017 for complaints of difficulty breathing and chest congestion which got progressively worse the night before admission. She denies fevers, chills. She has been increasingly wheezy, coughing, but unable to expectorate any sputum. She is on home oxygen at home, as well as Pulmicort nebulizer treatments. On presentation she was hypoxemic on 2 L per nasal cannula with oxygen saturations at 88%, tachypneic, with accessory muscle use, wheezing and decreased air entry bilaterally. Chest x-ray from 03/15/2017 has been reviewed and showed no evidence for infiltrate, atelectasis or acute pulmonary disease. Hyperinflation consistent with COPD is present. On examination today an elderly female, who is very hard of hearing, is resting in bed comfortably, states she is feeling better today. Denies significant sputum production. She has been afebrile, hemodynamically stable, with no signs of respiratory distress. No use of accessory muscles, no cough or hemoptysis. She is on 3 L with sats around 98%. Respirations are even and nonlabored. She is on combination of oral prednisone which will increase to IV Solu-Medrol 60 every 6 hours, DuoNeb and Pulmicort. We will add Perforomist 20 omi nebulizer treatments twice a day, will add Bactrim DS for antibiotic coverage. Anticipate further improvement, will reevaluate in 24 hours. A 03/19/2017 patient seen in follow-up. She is laying flat on her back in bed and complaining of shortness of breath day. Patient was assisted to a sitting position, however she insists on laying flat most of the time hip and back pain. On examination her lungs sounds are diminished bilaterally with scattered end expiratory wheezes and rhonchi at the bases. She has frequent episodes of harsh nonproductive cough she has been requesting nebulizer treatments frequently. She is not bringing up much sputum, that she did not sleep much last night. We will put her on Tessalon Perles and continue with all Other treatments. Objective - Vital Signs Vital signs: Vital Signs Temp 96.9 F L 03/19/17 07:00 Pulse 76 03/19/17 11:13 Resp 17 03/19/17 08:00 BP 143/87 03/19/17 07:00 Pulse Ox 99 03/19/17 07:00 Intake & Output 03/18/17 03/19/17 03/19/17 18:59 06:59 18:59 Intake Total 1190 Balance 1190 Weight 42.5 kg 37 kg 58.513 kg Intake: Oral 1190 Other: Voiding Method Toilet Toilet Toilet # Voids 2 3 1 # Bowel Movements 1 4 - Exam Elderly female, awake alert, in no acute distress. Very hard of hearing - Constitutional General appearance: Present: average body habitus - EENT Eyes: Present: EOMI, PERRLA, poor dentition ENT: Present: hard of hearing, NA/AT - Neck Neck: Present: normal ROM Carotids: bilateral: upstroke normal Thyroid: bilateral: normal size - Respiratory Respiratory: bilateral: rhonchi, wheezing, prolonged expiration - Cardiovascular Rhythm: regular Heart sounds: normal: S1, S2 - Gastrointestinal General gastrointestinal: Present: normal bowel sounds - Integumentary Integumentary: Present: normal turgor - Neurologic Neurologic: Present: CNII-XII intact - Musculoskeletal Musculoskeletal: Present: generalized weakness - Psychiatric Psychiatric: Present: appropriate affect, intact judgment & insight - Labs CBC & Chem 7: 03/15/17 14:10 03/18/17 06:55 Labs: Abnormal Lab Results - Last 24 Hours (Table) 03/18/17 03/18/17 03/18/17 Range/Units 12:16 16:08 20:26 POC Glucose (mg/dL) 145 H 158 H 122 H (75-99) mg/dL 03/19/17 03/19/17 Range/Units 07:17 11:10 POC Glucose (mg/dL) 117 H 126 H (75-99) mg/dL - Imaging and Cardiology Chest x-ray: report reviewed Assessment and Plan Plan: Assessment: #1. Acute on chronic hypoxic respiratory failure secondary to COPD exacerbation , on home oxygen #2. Alzheimer's dementia. #3. Obstructive sleep apnea. #4. History of gastroesophageal reflux disease #5. Hyperlipidemia. #6. Hypertension. #7. Osteoarthritis. #8. Hypothyroidism. #9. Gait dysfunction. Plan: We will switch oral prednisone to IV Solu-Medrol 60 mg every 6 hours, will add Perforomist nebulized treatments, Continue on Pulmicort and DuoNeb's around-the- clock. We will continue Bactrim DS twice a day for a ABT coverage. Will add Tessalon Perles with the coughing spells. Increase activity as tolerated. We'll closely follow with you. I performed a history & physical examination of the patient and discussed their management with my nurse practitioner, Veronique Cobb. I reviewed the nurse practitioner's note and agree with the documented findings and plan of care.
--- NOTE | 2017-03-19 11:59 | P.PN ---
Progress Note - Text Progress Note Date: 03/19/17 DATE OF SERVICE: 03/19/2017 PRESENTING COMPLAINT: Short of breath wheezing HISTORY OF PRESENT ILLNESS: 81-year-old patient presented with worsening shortness of breath cough and congestion, uses home oxygen. Admitted for acute chronic obstructive pulmonary disease exacerbation. INTERVAL HISTORY: 03/19/2017: Lying in bed appears uncomfortable continues to not feel well having difficulty breathing. Cough is improved some coarseness noted. No sputum production cough remains bronchial in nature. Patient noted to have a skin tear which had a foul smell and appeared infected looking. Clindamycin, Silvadene cream wound culture added. Appetite low eating between 30 and 40% of her meals. Encouraged to be up in the chair for meals throughout the day. Uses a walker to and from the bathroom and some standby assistance. Pulmonology added IV Solu-Medrol 60 mg every 6 and Perforomist nebulized treatments, Tessalon Perles and Bactrim DS. 03/18/2017: Lying in bed appears uncomfortable states she continues to not feel well having difficulty breathing. Cough is improved but still has some coarseness about it. No sputum production, remains bronchial in nature. Appetite is low barely eating 20-30% of her meals. Ambulatory with some assistance to and from the bathroom must use a walker. 03/17/2017: Lying in bed appears uncomfortable states she does not feel well. Continues to have a coarse cough however much improved from yesterday. Remains bronchial in nature. Occasional sputum production. Appetite is low barely eating 20% of her meals. Ambulatory with some assistance to and from the bathroom. Last BM prior to admission. IV fluids continue. 03/16/2017: Lying in bed appears comfortable. Coarse cough noted, mostly bronchial in nature. No sputum production. Requires some assistance to and from the bathroom, tolerating her diet eating about 50%. Last BM prior to admission. REVIEW OF SYSTEMS: Done for constitutional ,cardiovascular, GI, pulmonary with relevant findings as above. CURRENT MEDICATIONS Albuterol, Aricept, Mucinex 1200 mg by mouth 3 times a day, Keppra thousand grams by mouth twice a day Synthroid 50 g, Solu-Medrol 60 mg every 6 hours IV push, Bactrim DS twice a day, Perforomist 20 g inhalation twice a day, Tessalon Perles, Silvadene cream, PHYSICAL EXAM VITAL SIGNS: Temperature 96.9, pulse 83, respiratory rate 18, blood pressure 143/87, oxygen saturation 99% on 3 L. GENERAL APPEARANCE: Lying in bed, anxious appearing EYES: Pupils equal. Conjunctiva normal. NECK: JVD not raised. Mass not palpable. RESPIRATORY: Respiratory effort normal. Lungs decreased bilaterally with expiratory wheezing. CARDIOVASCULAR: First and second sounds normal. No edema. ABDOMEN: Soft. Liver and spleen not palpable. No tenderness. No mass palpable. PSYCHIATRY: Alert and oriented x3. Mood and affect anxious INTEGUMENT: Right wrist noted to have a skin tear, purulence, foul odor. 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 -Gastroesophageal reflux disease. -Hard of hearing. -Hyperlipidemia. -Essential Hypertension. -Primary osteoarthritis multiple joints, bilateral. -Obstructive sleep apnea. -Hypothyroidism. -Chronic hypoxic respiratory failure on home oxygen. -Gait dysfunction uses a wheeled walker. PLAN: Humidification added to oxygen,prednisone switched back to IV Solu-Medrol 60 mg every 6 hours Perforomist nebulized treatments added as well as Pulmicort and DuoNeb's [id number], Tessalon Perles and Bactrim added for antibiotic coverage per pulmonology. Right wrist skin tear dressed with Silvadene cream and dry dressing, wound culture sent. Plan of care discussed with the patient at the bedside we will continue to monitor closely. TIER AND DETONATOR statement: Patient was seen and examined by nurse practitioner Saray Ordaz and all elements of the case discussed with attending Dr. Chavarria
[2017-03-19] MEDS: B COMPLEX-VIT C-VIT E-ZINC 1 EACH TAB PO SCH (12:45)
[2017-03-19] MEDS: MULTIVITAMINS, THERA 1 EACH TAB PO SCH (12:46)
[2017-03-19] MEDS ORDERED: CLINDAMYCIN 600 MG in DEXTROSE 5% IN WATER 50 ML IVPB SCH ×2 (15:00)
[2017-03-19] MEDS: BENZONATATE 100 MG CAP PO SCH ×3 (15:39→22:44)
[2017-03-19 16:49] LABS: Glucose,Whole Blood 122 mg/dL (75-99)
--- NOTE | 2017-03-19 18:30 | PN ---
PROGRESS NOTE DATE OF SERVICE: 03/19/2017 ATTENDING NOTE: This patient was seen and examined by me. I discussed the case with my nurse practitioner, Ms. Ordaz. The patient still has got some wheezing, shortness of breath. Patient at the IV site seems to have a local wound infection. Feels rather tired. PHYSICAL EXAMINATION: Temperature 96.9, pulse 83, respiratory rate 17, blood pressure 143/87, pulse ox 93% on 3 L. GENERAL APPEARANCE: Lying in bed, tired-appearing. LUNGS: Decreased breath sounds and wheezing. IV site area looks a bit infected. ASSESSMENT: 1. Acute chronic obstructive pulmonary disease exacerbation, slow to respond. 2. Acute cellulitis at the IV site. PLAN: The patient is already on Bactrim. We will use topical Silvadene cream. Will follow with Pulmonary. MMODL / IJN: [id number] /
[2017-03-19 20:23] LABS: Glucose,Whole Blood 127 mg/dL (75-99)
[2017-03-19 21:53] VITALS: RESP 20
[2017-03-20] MEDS: IPRATROPIUM-ALBUTEROL 3 ML NEB INHALATION SCH ×4 (00:04→11:34)
[2017-03-20] MEDS: LEVOTHYROXINE 50 MCG TAB PO SCH (05:47)
[2017-03-20] MEDS: methylPREDNISolone SOD SUCCI 125 MG/2 ML VIAL IV SCH ×2 (05:47→12:11)
[2017-03-20 07:20] LABS: Glucose,Whole Blood 112 mg/dL (75-99)
[2017-03-20] MEDS: INSULIN LISPRO (humaLOG) 300 UNIT/3 ML VIAL SQ SCH ×2 (07:25→12:10)
[2017-03-20] MEDS: BENZONATATE 100 MG CAP PO SCH (07:28)
[2017-03-20] MEDS: guaiFENesin 600 MG TABLET.ER PO SCH (07:28)
[2017-03-20] MEDS: levETIRAcetam 500 MG TAB PO SCH (07:29)
[2017-03-20] MEDS: DONEPEZIL 10 MG TAB PO SCH (07:29)
[2017-03-20] MEDS: METOPROLOL TARTRATE 12.5 MG TAB PO SCH (07:30)
[2017-03-20] MEDS: SULFAMETHOX-TMP 800-160MG 1 EACH TAB PO SCH (07:30)
[2017-03-20 07:33] LABS: Basophils % (A) 0 %; CH 30.8; CHCM 30.9; Eosinophils % (A) 0 %; HCT 36.5 % (34.0-46.0); HDW 2.35; HGB 11.2 gm/dL (11.4-16.0); Hypochromasia Slight; Luc # (Auto) 0.04; Luc % (Auto) 1; Lymphocytes % (A) 15 %; MCH 30.6 pg (25.0-35.0); MCHC 30.6 g/dL (31.0-37.0); Macrocytosis Slight; Mean Platelet Volume 7.4; Monocytes # (A) 0.3 k/uL (0-1.0); Monocytes % (A) 4 %; Neutrophils # (A) 5.5 k/uL (1.3-7.7); Neutrophils % (A) 80 %; RBC 3.65 m/uL (3.80-5.40); RDW 14.5 % (11.5-15.5); WBC 6.9 k/uL (3.8-10.6); WBC (Perox) 7.21
[2017-03-20 07:49] LABS: Anion Gap 7 mmol/L; Blood Urea Nitrogen 25 mg/dL (7-17); Calcium 9.6 mg/dL (8.4-10.2); Carbon Dioxide 23 mmol/L (22-30); Chloride 109 mmol/L (98-107); Glucose 108 mg/dL (74-99); Non-African American GFR(MDRD) >60 (>60 ml/min/1.73 sqM); Potassium 4.6 mmol/L (3.5-5.1); Sodium 139 mmol/L (137-145)
[2017-03-20] MEDS: FORMOTEROL FUMARATE 20 MCG/2 ML NEBU INHALATION SCH (08:04)
[2017-03-20] MEDS: BUDESONIDE 1 MG/2 ML NEBU INHALATION SCH (08:04)
[2017-03-20 08:06] VITALS: BP 140/75; TEMP 97.8
[2017-03-20 11:38] LABS: Glucose,Whole Blood 129 mg/dL (75-99)
[2017-03-20 11:46] VITALS: PULSE 84
--- NOTE | 2017-03-20 12:02 | P.PN ---
Subjective Progress note dated 03/20/2017 This is a 81-year-old female with a history of hypoxemic respiratory failure secondary to severe COPD, sleep apnea syndrome, dementia, GERD, hyperlipidemia, hypertension, DJD, and hypothyroidism. The patient's on all the usual medications including Solu-Medrol Pulmicort and Perforomist DuoNeb and antibiotics. She is improved. Could be discharged home by the primary staff. She seemed relatively comfortable. Very poor historian. No history can really be obtained from her. In part this is due to her old age and her dementia. Objective - Vital Signs Vital signs: Vital Signs Temp 97.8 F 03/20/17 07:00 Pulse 84 03/20/17 11:46 Resp 20 03/20/17 07:00 BP 140/75 03/20/17 07:00 Pulse Ox 96 03/20/17 07:00 Intake & Output 03/19/17 03/20/17 03/20/17 18:59 06:59 18:59 Intake Total 240 480 Balance 240 480 Weight 58.513 kg 42 kg Intake: Oral 240 480 Other: Voiding Method Toilet Toilet Toilet # Voids 2 1 - Exam No acute distress, oriented 2 HEENT examination is grossly unremarkable. Teeth are in poor repair. Mucous membranes are moist. Neck supple. Full range of motion. No adenopathy or thyromegaly. Cardiovascular examination reveals regular rhythm rate. S1-S2 normal. No S3- S4 or murmur. Lungs reveal some expiratory rhonchi. Breath sounds are diminished. Slight prolongation. No crackles. No wheezes. Breath sounds are improved. Abdomen soft bowel sounds are heard. No masses or tenderness. Extremities are intact. No cyanosis clubbing or significant edema. Skin is without rash. Neurologic examination is difficult to assess. - Labs CBC & Chem 7: 03/20/17 06:51 03/20/17 06:51 Labs: Abnormal Lab Results - Last 24 Hours (Table) 03/19/17 03/19/17 03/20/17 Range/Units 16:47 20:21 06:51 RBC 3.65 L (3.80-5.40) m/uL Hgb 11.2 L (11.4-16.0) gm/dL MCHC 30.6 L (31.0-37.0) g/dL Chloride (98-107) mmol/L BUN (7-17) mg/dL Glucose (74-99) mg/dL POC Glucose (mg/dL) 122 H 127 H (75-99) mg/dL 03/20/17 03/20/17 03/20/17 Range/Units 06:51 07:18 11:36 RBC (3.80-5.40) m/uL Hgb (11.4-16.0) gm/dL MCHC (31.0-37.0) g/dL Chloride 109 H (98-107) mmol/L BUN 25 H (7-17) mg/dL Glucose 108 H (74-99) mg/dL POC Glucose (mg/dL) 112 H 129 H (75-99) mg/dL Microbiology - Last 24 Hours (Table) 03/19/17 15:30 Gram Stain - Preliminary Wrist - Right Wound Culture - Preliminary Assessment and Plan (1) Hyperlipidemia Status: Acute (2) Hypertension Status: Acute (3) Hypothyroidism Status: Acute (4) GERD (gastroesophageal reflux disease) Status: Acute (5) Sleep apnea Status: Acute (6) Dementia Status: Acute (7) Acute exacerbation of chronic obstructive airways disease Status: Acute (8) Adult respiratory distress syndrome Status: Acute (9) Hypoxemia Status: Acute (10) Acute bronchitis Status: Acute Plan: Plan dated 03/20/2017 The patient continues to improve. She is difficult to assess. Her breathing is improved when she is moving air better. Less adventitious lung sounds. The patient could be switched to oral corticosteroids. Likely discharge in a day or so. Actually could be discharged later today. The home situation may prevent. No additional recommendations are made. We'll continue to follow. Time with Patient: Less than 30
[2017-03-20] MEDS: MULTIVITAMINS, THERA 1 EACH TAB PO SCH (12:12)
[2017-03-20] MEDS: B COMPLEX-VIT C-VIT E-ZINC 1 EACH TAB PO SCH (12:12)
[2017-03-20 12:13] VITALS: BMI 18.1
--- NOTE | 2017-03-20 18:23 | P.DS ---
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 -Gastroesophageal reflux disease. -Hard of hearing. -Hyperlipidemia. -Essential Hypertension. -Primary osteoarthritis multiple joints, bilateral. -Obstructive sleep apnea. -Hypothyroidism. -Chronic hypoxic respiratory failure on home oxygen. -Gait dysfunction uses a wheeled walker. HOSPTIAL COURSE: 81-year-old female who presented with worsening shortness of breath cough congestion and uses home O2. She was admitted for acute chronic obstructive pulmonary disease exacerbation, home medications were ordered,pulmonology consulted.she was placed on steroids, DuoNeb , Tessalon Perles and Pulmicort as well as Perforomist. It was felt that she needed antibiotic coverage and Bactrim DS was added.patient was noted to have a skin tear on the right wrist looked infected, Silvadene cream and dressing changes were added to the regimen. Patient's overall condition improved cough improved breathing improved condition stabilized patient is appropriate for discharge. PHYSICAL EXAM: CARDIOVASCULAR: first and second sound noted no edema RESPIRATORY: effort normal,expiratory wheezing lung sounds diminished with some prolongation. Overall improvement in breath sounds bilaterally. MUSKULOSKELETAL:uses walker to get about PSYCHIATRY: Alert and oriented 2-3, mood and affect anxious Patient was seen and examined by nurse practitioner Saray Ordaz in all elements of the case discussed with attending Dr. Chavarria DISPOSITION:discharge home with home care Patient Condition at Discharge: Stable Plan - Discharge Summary New Discharge Prescriptions: New SILVER sulfADIAZINE CREAM [Silvadene Cream] 1 applic TOPICAL DAILY #1 dose Sulfamethox-Tmp 800-160Mg [Bactrim DS 800-160 mg] 1 each PO BID #14 tab predniSONE See Taper PO DAILY #30 tab Continue Levothyroxine Sodium [Synthroid] 50 mcg PO DAILY Metoprolol Tartrate [Lopressor] 12.5 mg PO BID levETIRAcetam [Keppra] 1,000 mg PO BID Budesonide [Pulmicort] 0.5 mg INHALATION RT-BID Donepezil [Aricept] 10 mg PO BID Cranberry Fruit Concentrate [Azo Cranberry] 500 mg PO BID Vitamin B Complex 1 cap PO DAILY Discontinued Multivitamins, Thera [Multivitamin (formulary)] 1 tab PO DAILY Discharge Medication List Levothyroxine Sodium [Synthroid] 50 mcg PO DAILY 04/01/14 [History] Metoprolol Tartrate [Lopressor] 12.5 mg PO BID 04/01/14 [History] levETIRAcetam [Keppra] 1,000 mg PO BID 04/01/14 [History] Budesonide [Pulmicort] 0.5 mg INHALATION RT-BID 04/01/15 [History] Donepezil [Aricept] 10 mg PO BID 04/01/15 [History] Cranberry Fruit Concentrate [Azo Cranberry] 500 mg PO BID 03/15/17 [History] Vitamin B Complex 1 cap PO DAILY 03/15/17 [History] SILVER sulfADIAZINE CREAM [Silvadene Cream] 1 applic TOPICAL DAILY #1 dose 03/20 [Rx] Sulfamethox-Tmp 800-160Mg [Bactrim DS 800-160 mg] 1 each PO BID #14 tab [Rx] predniSONE See Taper PO DAILY #30 tab 03/20/17 [Rx] Follow up Appointment(s)/Referral(s): Kilo De La Paz MD [Primary Care Provider] - 3 Days Carlos Kauffman DO [Doctor of Osteopathic Medicine] - 1 Week [facility], [NON-STAFF] - 1 Week Patient Instructions/Handouts: Sulfamethoxazole/Trimethoprim (By mouth), Silver Sulfadiazine (On the skin), Prednisone (By mouth), Acute Respiratory Distress Syndrome (DC), COPD (Chronic Obstructive Pulmonary Disease) (DC), Hyperlipidemia (DC), Hypoxemia (DC) Activity/Diet/Wound Care/Special Instructions: right wrist wound should be dressed with silvadene cream, telfa pad and kerlix to secure until healed Discharge Disposition: HOME WITH HOME HEALTH SERVICES
--- NOTE | 2017-03-20 23:19 | DS ---
DISCHARGE SUMMARY DATE OF SERVICE: 03/20/2017 ATTENDING NOTE: This patient was seen and examined by me. I discussed with my nurse practitioner. The patient's breathing is better. EXAMINATION: Lungs have improved air entry. The patient is keen to go home. Wound on the right looks better. DISCHARGE MEDICATIONS: Discharge on antibiotics in the form of Bactrim. Per Pulmonary, no nebulized bronchodilators. Care was discussed with the patient. MMODL / IJN: [id number] /
== END 2017-03-20 15:29 | disposition home health service (06) | DRG 190 ==
LOC: EC 13:34 → 5MS5E 16:00
PROVIDERS: ADMIT Hospitalist; ATTEND Hospitalist
DX: J44.1 Chronic obstructive pulmonary disease with (acute) exacerbation (principal); J96.21 Acute and chronic respiratory failure with hypoxia; I11.0 Hypertensive heart disease with heart failure; I50.9 Heart failure, unspecified; L03.113 Cellulitis of right upper limb; T80.29XA Infection following other infusion, transfusion and therapeutic injection, initial encounter; G30.1 Alzheimer's disease with late onset; F02.80 Dementia in other diseases classified elsewhere, unspecified severity, without behavioral disturbance, psychotic disturbance, mood disturbance, and anxiety; I10 Essential (primary) hypertension; Z77.22 Contact with and (suspected) exposure to environmental tobacco smoke (acute) (chronic); K21.9 Gastro-esophageal reflux disease without esophagitis; E78.5 Hyperlipidemia, unspecified; G47.33 Obstructive sleep apnea (adult) (pediatric); H91.90 Unspecified hearing loss, unspecified ear; E03.9 Hypothyroidism, unspecified; R26.9 Unspecified abnormalities of gait and mobility; S61.511A Laceration without foreign body of right wrist, initial encounter; G40.909 Epilepsy, unspecified, not intractable, without status epilepticus; M15.9 Polyosteoarthritis, unspecified; Z79.51 Long term (current) use of inhaled steroids; Z79.899 Other long term (current) drug therapy; Z88.8 Allergy status to other drugs, medicaments and biological substances; I25.2 Old myocardial infarction; Z86.73 Personal history of transient ischemic attack (TIA), and cerebral infarction without residual deficits; Z99.81 Dependence on supplemental oxygen; Z82.49 Family history of ischemic heart disease and other diseases of the circulatory system
CPT/HCPCS: 36415; 71020; 80048; 80053; 82550; 82553; 83036; 83735; 83880; 84484; 85025; 85610; 85730; 87070; 87077; 87186; 87205; 94640; 94760; 96365; 96375; 99291

== ENCOUNTER 2017-03-22 13:13 | Emergency (ER) | payer MEDICARE ==
[2017-03-22 13:27] VITALS: RESP 18
[2017-03-22] MEDS ORDERED: IPRATROPIUM-ALBUTEROL 3 ML NEB INHALATION STA (14:55)
[2017-03-22] MEDS ORDERED: methylPREDNISolone SOD SUCCI 125 MG/2 ML VIAL IV STA (14:56)
--- NOTE | 2017-03-22 14:58 | ED ---
General Adult HPI - General Chief complaint: Nausea/Vomiting/Diarrhea Stated complaint: Congestion/Vomiting Time Seen by Provider: 03/22/17 13:54 Source: patient, RN notes reviewed, old records reviewed Mode of arrival: wheelchair Limitations: no limitations - History of Present Illness Initial comments: Patient 81-year-old female who presents emergency room today with multiple complaints. Patient does admit that she still having cough congestion with increased shortness of breath. She states it's worse with exertion. Patient also admits that she began having some symptoms of nausea vomiting diarrhea that started last night. She does not that she was admitted to the hospital recently for COPD exacerbation. She states she is currently on antibiotics and steroids at home. She states she is not felt any better. States began having some diarrhea late last night. Also admits to a few episodes of nausea vomiting. Daughter at bedside stating that she's had a difficult time keeping food down today. Patient denies any abdominal pain. She denies any other complaints or symptoms currently. Patient denies any recent fever, chills, chest pain, back pain, numbness or tingling, dysuria or hematuria, constipation or diarrhea, headaches or visual changes, or any other complaints. - Related Data Home Medications Medication Instructions Recorded Confirmed Levothyroxine Sodium [Synthroid] 50 mcg PO DAILY 04/01/14 03/22/17 Metoprolol Tartrate [Lopressor] 12.5 mg PO BID 04/01/14 03/22/17 levETIRAcetam [Keppra] 1,000 mg PO BID 04/01/14 03/22/17 Budesonide [Pulmicort] 0.5 mg INHALATION RT-BID 04/01/15 03/22/17 Donepezil [Aricept] 10 mg PO BID 04/01/15 03/22/17 Cranberry Fruit Concentrate [Azo 500 mg PO BID 03/15/17 03/22/17 Cranberry] Vitamin B Complex 1 cap PO DAILY 03/15/17 03/22/17 Sulfamethox-Tmp 800-160Mg [Bactrim 1 tab PO BID 03/22/17 03/22/17 DS 800-160 mg] Previous Rx's Medication Instructions Recorded SILVER sulfADIAZINE CREAM 1 applic TOPICAL DAILY #1 dose 03/20/17 [Silvadene Cream] predniSONE See Taper PO DAILY #30 tab 03/20/17 Allergies Allergy/AdvReac Type Severity Reaction Status Date / Time alprazolam [From Xanax] AdvReac Hallucinati Verified 03/22/17 14:18 ons lorazepam [From Ativan] AdvReac Hallucinati Verified 03/22/17 14:18 ons phenytoin sodium AdvReac Hallucinati Verified 03/22/17 14:18 [From Dilantin] ons Review of Systems ROS Statement: Those systems with pertinent positive or pertinent negative responses have been documented in the HPI. ROS Other: All systems not noted in ROS Statement are negative. Past Medical History Past Medical History: Asthma, Heart Failure, COPD, CVA/TIA, Dementia, GERD/ Reflux, Hearing Disorder / Deafness, Hyperlipidemia, Hypertension, Myocardial Infarction (SD), Osteoarthritis (OA), Pneumonia, Seizure Disorder, Sleep Apnea/ CPAP/BIPAP, Thyroid Disorder Additional Past Medical History / Comment(s): hypothyroid, UTI, FEBRILE SEIZURES , TIA,TINNITUS, MURMUR BRONCHITIS,EMPHYSEMA,UTI, VERY [place], STATED NEEDS NEW GLASSES(FOR READING), SLEEP APNEA BUT DOES'NT USE CPAP MACHINE,PAST HX C-DIFF DATE UNK Last Myocardial Infarction Date:: UNK History of Any Multi-Drug Resistant Organisms: None Reported Past Surgical History: Back Surgery Additional Past Surgical History / Comment(s): LAMECTOMY, CARPAL TUNNEL, RT HAND SX Past Anesthesia/Blood Transfusion Reactions: No Reported Reaction Past Psychological History: Anxiety Smoking Status: Never smoker - Past Family History Father Additional Family Medical History / Comment(s): AT AGE 89 Mother Family Medical History: Hypertension Additional Family Medical History / Comment(s): AT AGE 47. HAD HX RHEUMATIC FEVER General Exam - General Exam Comments Initial Comments: General: The patient is awake and alert, in no distress, and does not appear acutely ill. Eye: Pupils are equal, round and reactive to light, extra-ocular movements are intact. No nystagmus. There is normal conjunctiva bilaterally. No signs of icterus. Ears, nose, mouth and throat: There are moist mucous membranes and no oral lesions. Neck: The neck is supple, there is no tenderness or JVD. Cardiovascular: There is a regular rate and rhythm. No murmur, rub or gallop is appreciated. Respiratory: Lungs are clear to auscultation, respirations are non-labored, breath sounds are equal. No wheezes, stridor, rales, or rhonchi. Gastrointestinal: Soft, non-distended, non-tender abdomen without masses or organomegaly noted. There is no rebound or guarding present. No CVA tenderness. Bowel sounds are unremarkable. Musculoskeletal: Normal ROM, no tenderness. Strength 5/5. Sensation intact. Pulses equal bilaterally 2+. Neurological: A&O x 3. CN II-XII intact, There are no obvious motor or sensory deficits. Coordination appears grossly intact. Speech is normal. Skin: Skin is warm and dry and no rashes or lesions are noted. Psychiatric: Cooperative, appropriate mood & affect, normal judgment. Limitations: no limitations Course Vital Signs 03/22/17 03/22/17 03/22/17 13:24 14:27 15:00 Temperature 97.9 F Pulse Rate 59 L 50 L 54 L Respiratory 18 18 18 Rate Blood Pressure 108/53 135/63 135/63 O2 Sat by Pulse 95 99 100 Oximetry 03/22/17 03/22/17 03/22/17 15:39 15:48 16:00 Temperature Pulse Rate 53 L 53 L 53 L Respiratory 18 Rate Blood Pressure 141/64 O2 Sat by Pulse 97 Oximetry Medical Decision Making - Medical Decision Making Patient reexamined at this time shows no signs of distress she is resting comfortably. She states she feels much better. Lung sounds are clear bilaterally. Patient's chest x-ray shows no acute abnormality. Patient had no diarrhea here the emergency room was able to provide stool sample was formed. Patient feeling well at this time states she would like to be discharged home. Her vitals are stable. She does use oxygen at home. Patient currently on steroids at home along with an antibiotic. Patient and her daughter at bedside state that they can follow-up with the family doctor in the next 1-2 days. They 're advised return here to the emergency room if any symptoms increase or worsen. - Lab Data Result diagrams: 03/22/17 15:22 03/22/17 15: Lab Results 03/22/17 03/22/17 03/22/17 Range/Units 14:40 15:22 15:22 WBC 9.2 (3.8-10.6) k/uL RBC 3.88 (3.80-5.40) m/uL Hgb 12.1 (11.4-16.0) gm/dL Hct 38.7 (34.0-46.0) % MCV 99.8 (80.0-100.0) fL MCH 31.3 (25.0-35.0) pg MCHC 31.3 (31.0-37.0) g/dL RDW 15.4 (11.5-15.5) % Plt Count 196 (150-450) k/uL Neutrophils % 58 % Lymphocytes % 32 % Monocytes % 6 % Eosinophils % 3 % Basophils % 0 % Neutrophils # 5.4 (1.3-7.7) k/uL Lymphocytes # 2.9 (1.0-4.8) k/uL Monocytes # 0.6 (0-1.0) k/uL Eosinophils # 0.3 (0-0.7) k/uL Basophils # 0.0 (0-0.2) k/uL Macrocytosis Slight Sodium 137 (137-145) mmol/L Potassium 4.5 (3.5-5.1) mmol/L Chloride 105 (98-107) mmol/L Carbon Dioxide 27 (22-30) mmol/L Anion Gap 5 mmol/L BUN 29 H (7-17) mg/dL Creatinine 0.73 (0.52-1.04) mg/dL Est GFR (MDRD) Af Amer >60 (>60 ml/min/1.73 sqM) Est GFR (MDRD) Non-Af >60 (>60 ml/min/1.73 sqM) Glucose 76 (74-99) mg/dL Calcium 9.3 (8.4-10.2) mg/dL Total Bilirubin 0.4 (0.2-1.3) mg/dL AST 37 H (14-36) U/L ALT 45 (9-52) U/L Alkaline Phosphatase 98 (38-126) U/L Total Protein 6.0 L (6.3-8.2) g/dL Albumin 3.2 L (3.5-5.0) g/dL Lipase 218 (23-300) U/L Urine Color Yellow Urine Appearance Clear (Clear) Urine pH 5.5 (5.0-8.0) Ur Specific [place] 1.017 (1.001-1.035) Urine Protein Negative (Negative) Urine Glucose (UA) Negative (Negative) Urine Ketones Negative (Negative) Urine Blood Negative (Negative) Urine Nitrite Negative (Negative) Urine Bilirubin Negative (Negative) Urine Urobilinogen <2.0 (<2.0) mg/dL Ur Leukocyte Esterase Negative (Negative) Disposition Clinical Impression: Acute bronchitis, COPD exacerbation Disposition: HOME SELF-CARE Condition: Good Instructions: COPD (Chronic Obstructive Pulmonary Disease) (ED) Additional Instructions: Please continue previously prescribed medications and do breathing treatments at home every 4-6 hours as needed. Please follow-up the family doctor over the next 2 days. Please return here to emergency room if any symptoms worsen Referrals: Kilo De La Paz MD [Primary Care Provider] - 1-2 days Time of Disposition: 16:20
--- NOTE | 2017-03-22 15:18 | XR ---
EXAMINATION TYPE: XR chest 2V DATE OF EXAM: 03/22/2017 COMPARISON: Prior chest x-ray 03/15/2017 HISTORY: Cough and shortness of breath TECHNIQUE: Frontal and lateral views of the chest are obtained. FINDINGS: Patient is rotated. Evidence of old granulomatous disease again seen. Bandlike area of inc reased attenuation present at the left costo phrenic sulcus level. There are dense vascular calcifica tions. No pneumothorax or pleural effusion. Cardiac mediastinal silhouette, pulmonary vascularity and pj are stable. Prominent lung lines reflect possible underlying COPD. IMPRESSION: Some minimal basilar atelectasis is suspected. Heart size may be accentuated by rotation .
[2017-03-22 15:42] LABS: Basophils % (A) 0 %; CH 31.4; CHCM 31.6; Eosinophils # (A) 0.3 k/uL (0-0.7); Eosinophils % (A) 3 %; HCT 38.7 % (34.0-46.0); HDW 2.33; HGB 12.1 gm/dL (11.4-16.0); Luc # (Auto) 0.07; Luc % (Auto) 1; Lymphocytes # (A) 2.9 k/uL (1.0-4.8); Lymphocytes % (A) 32 %; MCH 31.3 pg (25.0-35.0); MCHC 31.3 g/dL (31.0-37.0); MCV 99.8 fL (80.0-100.0); Macrocytosis Slight; Mean Platelet Volume 7.7; Monocytes # (A) 0.6 k/uL (0-1.0); Monocytes % (A) 6 %; Neutrophils # (A) 5.4 k/uL (1.3-7.7); Neutrophils % (A) 58 %; RBC 3.88 m/uL (3.80-5.40); RDW 15.4 % (11.5-15.5); WBC 9.2 k/uL (3.8-10.6)
[2017-03-22 15:52] LABS: Appearance,Urine Clear (Clear); Bilirubin,Urine Negative (Negative); Glucose,Urine (UA) Negative (Negative); Ketones,Urine Negative (Negative); Leukocyte Esterase,Urine Negative (Negative); Nitrite,Urine Negative (Negative); PH, Urine 5.5 (5.0-8.0); Protein,Urine Negative (Negative); Specific Gravity,Urine 1.017 (1.001-1.035); UA Billing (MACRO vs. MICRO) CHEM; Urobilinogen,Urine <2.0 mg/dL (<2.0)
[2017-03-22 15:57] LABS: ALT 45 U/L (9-52); AST 37 U/L (14-36); Alkaline Phosphatase 98 U/L (38-126); Anion Gap 5 mmol/L; Blood Urea Nitrogen 29 mg/dL (7-17); Calcium 9.3 mg/dL (8.4-10.2); Carbon Dioxide 27 mmol/L (22-30); Chloride 105 mmol/L (98-107); Glucose 76 mg/dL (74-99); Non-African American GFR(MDRD) >60 (>60 ml/min/1.73 sqM); Potassium 4.5 mmol/L (3.5-5.1); Sodium 137 mmol/L (137-145); Total Bilirubin 0.4 mg/dL (0.2-1.3)
[2017-03-22 16:01] LABS: Partial Thromboplastin Time 22.3 sec (22.0-30.0); Prothrombin Time 10.6 sec (9.0-12.0)
[2017-03-22 16:08] LABS: Creatine Kinase <20 U/L (30-135)
[2017-03-22 16:21] LABS: Troponin I <0.012 ng/mL (0.000-0.034)
[2017-03-22 16:24] LABS: Creatine Kinase MB 3.8 ng/mL (0.0-2.4)
[2017-03-22 16:41] VITALS: BP 150/65; PULSE 55; TEMP 96.8
== END 2017-03-22 16:45 | disposition home or self-care (01) ==
LOC: EC 13:13
DX: J44.1 Chronic obstructive pulmonary disease with (acute) exacerbation (principal); J20.9 Acute bronchitis, unspecified; I50.9 Heart failure, unspecified; I11.0 Hypertensive heart disease with heart failure; E78.5 Hyperlipidemia, unspecified; K21.9 Gastro-esophageal reflux disease without esophagitis; I25.2 Old myocardial infarction; E07.9 Disorder of thyroid, unspecified; M19.90 Unspecified osteoarthritis, unspecified site; H91.90 Unspecified hearing loss, unspecified ear; G40.909 Epilepsy, unspecified, not intractable, without status epilepticus; F41.9 Anxiety disorder, unspecified; Z79.899 Other long term (current) drug therapy; Z88.8 Allergy status to other drugs, medicaments and biological substances
CPT/HCPCS: 99284 ×2; 96374 ×2; 36415; 94640; 93005; 80053; 82550; 82553; 83690; 84484; 85025; 85610; 85730; 81003; 71020; J2930

== ENCOUNTER 2017-09-16 14:10 | Emergency (ER) | payer MEDICARE ==
[2017-09-16] MEDS ORDERED: predniSONE 20 MG TAB PO STA (14:58)
[2017-09-16] MEDS ORDERED: IPRATROPIUM-ALBUTEROL 3 ML NEB INHALATION STA (14:58)
--- NOTE | 2017-09-16 15:02 | ED ---
General Adult HPI - General Chief complaint: Shortness of Breath Stated complaint: Cough & Cold Time Seen by Provider: 09/16/17 14:52 Source: patient, RN notes reviewed Mode of arrival: wheelchair Limitations: no limitations - History of Present Illness Initial comments: 82-year-old female with history of COPD presents with cough and dyspnea. Patient is accompanied by her daughter who states that over the past several days she has had worsening cough. This is nonproductive. She has previous occupational exposure contributing to her COPD. She is a nonsmoker. She also states she's had some rhinorrhea and URI symptoms. No fever or chills. No chest pain. No abdominal pain nausea vomiting. No lower extremity swelling or calf tenderness. - Related Data Home Medications Medication Instructions Recorded Confirmed Levothyroxine Sodium [Synthroid] 50 mcg PO DAILY 04/01/14 09/16/17 Metoprolol Tartrate [Lopressor] 12.5 mg PO BID 04/01/14 09/16/17 Budesonide [Pulmicort] 0.5 mg INHALATION RT-BID 04/01/15 09/16/17 Donepezil [Aricept] 10 mg PO BID 04/01/15 09/16/17 Albuterol Nebulized [Ventolin 2.5 mg INHALATION RT-Q4H PRN 05/25/17 09/16/17 Nebulized] Ipratropium Nebulized [Atrovent 0.5 mg INHALATION RT-Q4H PRN 05/25/17 09/16/17 Nebulized] levETIRAcetam [Keppra] 750 mg PO BID 09/16/17 09/16/17 Previous Rx's Medication Instructions Recorded Azithromycin [Zithromax Z-pack] 0 mg PO DIRECTED #6 tab 09/16/17 predniSONE 50 mg PO DAILY #5 tab 09/16/17 Allergies Allergy/AdvReac Type Severity Reaction Status Date / Time alprazolam [From Xanax] AdvReac Hallucinati Verified 09/16/17 15:12 ons lorazepam [From Ativan] AdvReac Hallucinati Verified 09/16/17 15:12 ons phenytoin sodium AdvReac Hallucinati Verified 09/16/17 15:12 [From Dilantin] ons Review of Systems ROS Statement: Those systems with pertinent positive or pertinent negative responses have been documented in the HPI. ROS Other: All systems not noted in ROS Statement are negative. Past Medical History Past Medical History: Heart Failure, COPD, CVA/TIA, Dementia, GERD/Reflux, Hearing Disorder / Deafness, Hyperlipidemia, Hypertension, Myocardial Infarction (SC), Osteoarthritis (OA), Pneumonia, Seizure Disorder, Sleep Apnea/ CPAP/BIPAP, Thyroid Disorder Additional Past Medical History / Comment(s): COPD, chronic hypoxic respiratory failure, impaired hearing, impaired vision, obstructive sleep apnea but she does not utilize any CPAP therapy, remote history of C. diff colitis, hypothyroidism, previous TIA, dementia, acid reflux, coronary artery disease with previous myocardial infarction, seizure disorder, calcified gallstone, obesity Last Myocardial Infarction Date:: UNK History of Any Multi-Drug Resistant Organisms: None Reported Past Surgical History: Back Surgery Additional Past Surgical History / Comment(s): Carpal tunnel release involving the right hand, back surgery involving laminectomy and fusion. She has had also previous lumpectomy Past Anesthesia/Blood Transfusion Reactions: No Reported Reaction Past Psychological History: Anxiety Smoking Status: Never smoker Past Alcohol Use History: None Reported Past Drug Use History: None Reported - Past Family History Father Additional Family Medical History / Comment(s): AT AGE 89 Mother Family Medical History: Hypertension Additional Family Medical History / Comment(s): AT AGE 47. HAD HX RHEUMATIC FEVER General Exam Limitations: no limitations General appearance: alert, in no apparent distress Head exam: Present: atraumatic, normocephalic Eye exam: Present: normal appearance, PERRL ENT exam: Present: normal exam Neck exam: Present: normal inspection. Absent: tenderness, meningismus Respiratory exam: Present: wheezes, prolonged expiratory. Absent: respiratory distress Cardiovascular Exam: Present: regular rate, normal rhythm GI/Abdominal exam: Present: soft. Absent: distended, tenderness Extremities exam: Present: normal inspection, normal capillary refill. Absent: pedal edema, calf tenderness Back exam: Present: normal inspection, full ROM. Absent: tenderness Neurological exam: Present: alert, oriented X3. Absent: motor sensory deficit Psychiatric exam: Present: normal affect, normal mood Skin exam: Present: warm, dry, intact. Absent: cyanosis, diaphoretic Course Vital Signs 09/16/17 09/16/17 09/16/17 14:30 14:50 15:38 Temperature 98.6 F Pulse Rate 86 86 Respiratory 18 20 16 Rate Blood Pressure 159/56 O2 Sat by Pulse 97 Oximetry 09/16/17 15:46 Temperature Pulse Rate 88 Respiratory 16 Rate Blood Pressure O2 Sat by Pulse Oximetry EKG Findings - EKG Comments: EKG Findings:: EKG, sinus bradycardia rate of 59, RI interval 146, QRS duration 82, QTC 409 Medical Decision Making - Medical Decision Making 82-year-old female presenting with cough and dyspnea as well as URI symptoms. Patient does have history COPD, she is wheezing on lung exam. Vitals are stable. Chest x-ray negative for focal pneumonia. Laboratory studies are normal white blood cell count, stable hemoglobin, normal electrolytes. Troponin and BNP are negative. Patient is started on antibiotics and steroids for COPD exacerbation. She will return with worsening dyspnea, or changing symptoms. - Lab Data Result diagrams: 09/16/17 16:30 09/16/17 16:30 Lab Results 09/16/17 09/16/17 09/16/17 Range/Units 16:30 16:30 16:30 WBC 8.8 (3.8-10.6) k/uL RBC 3.73 L (3.80-5.40) m/uL Hgb 11.1 L (11.4-16.0) gm/dL Hct 34.6 (34.0-46.0) % MCV 92.9 (80.0-100.0) fL MCH 29.8 (25.0-35.0) pg MCHC 32.0 (31.0-37.0) g/dL RDW 14.6 (11.5-15.5) % Plt Count 232 (150-450) k/uL Neutrophils % 54 % Lymphocytes % 30 % Monocytes % 7 % Eosinophils % 6 % Basophils % 1 % Neutrophils # 4.7 (1.3-7.7) k/uL Lymphocytes # 2.7 (1.0-4.8) k/uL Monocytes # 0.6 (0-1.0) k/uL Eosinophils # 0.6 (0-0.7) k/uL Basophils # 0.0 (0-0.2) k/uL Hypochromasia Slight PT (9.0-12.0) sec INR (<1.2) APTT (22.0-30.0) sec Sodium 139 (137-145) mmol/L Potassium 5.2 H (3.5-5.1) mmol/L Chloride 101 (98-107) mmol/L Carbon Dioxide 27 (22-30) mmol/L Anion Gap 11 mmol/L BUN 18 H (7-17) mg/dL Creatinine 0.61 (0.52-1.04) mg/dL Est GFR (CKD-EPI)AfAm >90 (>60 ml/min/1.73 sqM) Est GFR (CKD-EPI)NonAf 84 (>60 ml/min/1.73 sqM) Glucose 83 (74-99) mg/dL Calcium 10.2 (8.4-10.2) mg/dL Magnesium 1.9 (1.6-2.3) mg/dL Total Bilirubin 0.6 (0.2-1.3) mg/dL AST 37 H (14-36) U/L ALT 18 (9-52) U/L Alkaline Phosphatase 133 H (38-126) U/L Total Creatine Kinase 60 (30-135) U/L Total Protein 7.0 (6.3-8.2) g/dL Albumin 3.7 (3.5-5.0) g/dL 09/16/17 Range/Units 16:30 WBC (3.8-10.6) k/uL RBC (3.80-5.40) m/uL Hgb (11.4-16.0) gm/dL Hct (34.0-46.0) % MCV (80.0-100.0) fL MCH (25.0-35.0) pg MCHC (31.0-37.0) g/dL RDW (11.5-15.5) % Plt Count (150-450) k/uL Neutrophils % % Lymphocytes % % Monocytes % % Eosinophils % % Basophils % % Neutrophils # (1.3-7.7) k/uL Lymphocytes # (1.0-4.8) k/uL Monocytes # (0-1.0) k/uL Eosinophils # (0-0.7) k/uL Basophils # (0-0.2) k/uL Hypochromasia PT 9.7 (9.0-12.0) sec INR 1.0 (<1.2) APTT 23.5 (22.0-30.0) sec Sodium (137-145) mmol/L Potassium (3.5-5.1) mmol/L Chloride (98-107) mmol/L Carbon Dioxide (22-30) mmol/L Anion Gap mmol/L BUN (7-17) mg/dL Creatinine (0.52-1.04) mg/dL Est GFR (CKD-EPI)AfAm (>60 ml/min/1.73 sqM) Est GFR (CKD-EPI)NonAf (>60 ml/min/1.73 sqM) Glucose (74-99) mg/dL Calcium (8.4-10.2) mg/dL Magnesium (1.6-2.3) mg/dL Total Bilirubin (0.2-1.3) mg/dL AST (14-36) U/L ALT (9-52) U/L Alkaline Phosphatase (38-126) U/L Total Creatine Kinase (30-135) U/L Total Protein (6.3-8.2) g/dL Albumin (3.5-5.0) g/dL Disposition Clinical Impression: Acute exacerbation of chronic obstructive airways disease Disposition: HOME SELF-CARE Condition: Fair Instructions: Chronic Bronchitis (ED) Prescriptions: Azithromycin [Zithromax Z-pack] 0 mg PO DIRECTED #6 tab predniSONE 50 mg PO DAILY #5 tab Referrals: Kilo De La Paz MD [Primary Care Provider] - 1-2 days
[2017-09-16 16:42] LABS: Basophils % (A) 1 %; Eosinophils # (A) 0.6 k/uL (0-0.7); Eosinophils % (A) 6 %; HCT 34.6 % (34.0-46.0); HGB 11.1 gm/dL (11.4-16.0); Hypochromasia Slight; Lymphocytes # (A) 2.7 k/uL (1.0-4.8); Lymphocytes % (A) 30 %; MCH 29.8 pg (25.0-35.0); MCV 92.9 fL (80.0-100.0); Mean Platelet Volume 7.6; Monocytes # (A) 0.6 k/uL (0-1.0); Monocytes % (A) 7 %; Neutrophils # (A) 4.7 k/uL (1.3-7.7); Neutrophils % (A) 54 %; Platelet Count 232 k/uL (150-450); RBC 3.73 m/uL (3.80-5.40); RDW 14.6 % (11.5-15.5); WBC 8.8 k/uL (3.8-10.6)
--- NOTE | 2017-09-16 16:51 | XR ---
EXAMINATION TYPE: XR chest 2V DATE OF EXAM: 09/16/2017 COMPARISON: 05/29/2017 HISTORY: Shortness of breath and heart failure TECHNIQUE: Frontal and lateral views of the chest are obtained. FINDINGS: Minimal left basilar subsegmental dependent atelectasis is identified. There is no focal a ir space opacity, pleural effusion, or pneumothorax seen. The cardiac silhouette size is within norm al limits. The osseous structures are intact. Numerous calcified granulomas are present within the mediastinum. There is diffuse osseous demineralization and degenerative changes of the thoracic spine , glenohumeral joints and acromioclavicular joints. Pulmonary per inflation likely relates underlying COPD. IMPRESSION: Minimal left basilar subsegmental atelectasis. No focal consolidation to suggest ammonia . Radiographic sequela of COPD.
[2017-09-16 16:53] LABS: Partial Thromboplastin Time 23.5 sec (22.0-30.0); Prothrombin Time 9.7 sec (9.0-12.0)
[2017-09-16 16:59] LABS: ALT 18 U/L (9-52); AST 37 U/L (14-36); Albumin 3.7 g/dL (3.5-5.0); Alkaline Phosphatase 133 U/L (38-126); Anion Gap 11 mmol/L; Blood Urea Nitrogen 18 mg/dL (7-17); Calcium 10.2 mg/dL (8.4-10.2); Carbon Dioxide 27 mmol/L (22-30); Chloride 101 mmol/L (98-107); Glucose 83 mg/dL (74-99); Magnesium 1.9 mg/dL (1.6-2.3); Potassium 5.2 mmol/L (3.5-5.1); Sodium 139 mmol/L (137-145); Total Bilirubin 0.6 mg/dL (0.2-1.3)
[2017-09-16 17:04] LABS: Creatine Kinase 60 U/L (30-135)
[2017-09-16 17:16] LABS: Creatine Kinase MB 2.3 ng/mL (0.0-2.4); Troponin I <0.012 ng/mL (0.000-0.034)
[2017-09-16 17:22] VITALS: BP 163/73; PULSE 67; RESP 18
[2017-09-16 17:51] VITALS: TEMP 98
== END 2017-09-16 18:00 | disposition home or self-care (01) ==
LOC: EC 14:10
DX: J44.1 Chronic obstructive pulmonary disease with (acute) exacerbation (principal); I11.0 Hypertensive heart disease with heart failure; I50.9 Heart failure, unspecified; F03.90 Unspecified dementia, unspecified severity, without behavioral disturbance, psychotic disturbance, mood disturbance, and anxiety; I25.2 Old myocardial infarction; I25.10 Atherosclerotic heart disease of native coronary artery without angina pectoris; G40.909 Epilepsy, unspecified, not intractable, without status epilepticus; J96.11 Chronic respiratory failure with hypoxia; G47.33 Obstructive sleep apnea (adult) (pediatric); E03.9 Hypothyroidism, unspecified; E66.9 Obesity, unspecified; Z68.25 Body mass index [BMI] 25.0-25.9, adult; Z86.73 Personal history of transient ischemic attack (TIA), and cerebral infarction without residual deficits; Z79.51 Long term (current) use of inhaled steroids; Z79.899 Other long term (current) drug therapy; Z88.8 Allergy status to other drugs, medicaments and biological substances
CPT/HCPCS: 99285; 36415; 94640; 83880; 80053; 82550; 82553; 83735; 84484; 85025; 85610; 85730; 71046; J7512

== ENCOUNTER 2017-11-23 15:40 | Inpatient (IN) | payer MEDICARE ==
[2017-11-23] MEDS ORDERED: SODIUM CHLORIDE 0.9% 1,000 ML IV STA ×2 (17:11)
[2017-11-23] MEDS ORDERED: IPRATROPIUM-ALBUTEROL 3 ML NEB INHALATION STA (17:11)
[2017-11-23] MEDS ORDERED: methylPREDNISolone SOD SUCCI 125 MG/2 ML VIAL IV STA (17:11)
--- NOTE | 2017-11-23 17:22 | ED ---
URI HPI - General Chief Complaint: Upper Respiratory Infection Stated Complaint: Congestion Time Seen by Provider: 11/23/17 16:55 Source: patient, RN notes reviewed, old records reviewed Mode of arrival: wheelchair Limitations: no limitations - History of Present Illness Initial Comments: Patient is an 82-year-old female with chief complaint of increased cough congestion shortness of breath for the past 4 days. Patient reports initially started out with what she thought was ALLERGIES earlier in the weekend. She states that yesterday and today she complains that she's not able to breathe. She's been doing breathing treatments every 2 hours. Patient reports been admitted for pneumonia in the past. He does wear oxygen at home and is typically a 2.5 L.Patient denies any recent fever, chills, chest pain, back pain, abdominal pain, nausea vomiting, numbness or tingling, dysuria or hematuria, constipation or diarrhea, headaches or visual changes, or any other current symptoms - Related Data Home Medications Medication Instructions Recorded Confirmed Levothyroxine Sodium [Synthroid] 50 mcg PO DAILY 04/01/14 11/23/17 Metoprolol Tartrate [Lopressor] 12.5 mg PO BID 04/01/14 11/23/17 Budesonide [Pulmicort] 0.5 mg INHALATION RT-BID 04/01/15 11/23/17 Donepezil [Aricept] 10 mg PO BID 04/01/15 11/23/17 Albuterol Nebulized [Ventolin 2.5 mg INHALATION RT-Q4H PRN 05/25/17 11/23/17 Nebulized] Ipratropium Nebulized [Atrovent 0.5 mg INHALATION RT-Q4H PRN 05/25/17 11/23/17 Nebulized] levETIRAcetam [Keppra] 750 mg PO BID 09/16/17 11/23/17 guaiFENesin 400 mg PO Q4H PRN 11/23/17 11/23/17 Allergies Allergy/AdvReac Type Severity Reaction Status Date / Time alprazolam [From Xanax] AdvReac Hallucinati Verified 11/23/17 17:04 ons lorazepam [From Ativan] AdvReac Hallucinati Verified 11/23/17 17:04 ons phenytoin sodium AdvReac Hallucinati Verified 11/23/17 17:04 [From Dilantin] ons Review of Systems ROS Statement: Those systems with pertinent positive or pertinent negative responses have been documented in the HPI. ROS Other: All systems not noted in ROS Statement are negative. Past Medical History Past Medical History: Heart Failure, COPD, CVA/TIA, Dementia, GERD/Reflux, Hearing Disorder / Deafness, Hyperlipidemia, Hypertension, Myocardial Infarction ([place]), Osteoarthritis (OA), Pneumonia, Seizure Disorder, Sleep Apnea/ CPAP/BIPAP, Thyroid Disorder Additional Past Medical History / Comment(s): COPD, chronic hypoxic respiratory failure, impaired hearing, impaired vision, obstructive sleep apnea but she does not utilize any CPAP therapy, remote history of C. diff colitis, hypothyroidism, previous TIA, dementia, acid reflux, coronary artery disease with previous myocardial infarction, seizure disorder, calcified gallstone, obesity Last Myocardial Infarction Date:: UNK History of Any Multi-Drug Resistant Organisms: None Reported Past Surgical History: Back Surgery Additional Past Surgical History / Comment(s): Carpal tunnel release involving the right hand, back surgery involving laminectomy and fusion. She has had also previous lumpectomy Past Anesthesia/Blood Transfusion Reactions: No Reported Reaction Past Psychological History: Anxiety Smoking Status: Never smoker Past Alcohol Use History: None Reported Past Drug Use History: None Reported - Past Family History Father Additional Family Medical History / Comment(s): AT AGE 89 Mother Family Medical History: Hypertension Additional Family Medical History / Comment(s): AT AGE 47. HAD HX RHEUMATIC FEVER General Exam - General Exam Comments Initial Comments: This patient's a 82-year-old female. Alert and oriented. No significant distress. Limitations: no limitations General appearance: alert, in no apparent distress Head exam: Present: atraumatic, normocephalic, normal inspection Eye exam: Present: normal appearance, PERRL, EOMI. Absent: scleral icterus, conjunctival injection, periorbital swelling ENT exam: Present: normal exam, mucous membranes moist Neck exam: Present: normal inspection. Absent: tenderness, meningismus, lymphadenopathy Respiratory exam: Present: wheezes, rhonchi. Absent: normal lung sounds bilaterally, respiratory distress, rales, stridor Cardiovascular Exam: Present: regular rate, normal rhythm, normal heart sounds. Absent: systolic murmur, diastolic murmur, rubs, gallop, clicks GI/Abdominal exam: Present: soft, normal bowel sounds. Absent: distended, tenderness, guarding, rebound, rigid Extremities exam: Present: normal inspection, full ROM, normal capillary refill. Absent: tenderness, pedal edema, joint swelling, calf tenderness Back exam: Present: normal inspection Neurological exam: Present: alert, oriented X3, CN II-XII intact Psychiatric exam: Present: normal affect, normal mood Skin exam: Present: warm, dry, intact, normal color. Absent: rash Course Vital Signs 11/23/17 11/23/17 11/23/17 15:52 17:13 17:37 Temperature 97.9 F Pulse Rate 65 78 83 Respiratory 18 20 Rate Blood Pressure 138/72 138/71 O2 Sat by Pulse 97 98 Oximetry 11/23/17 11/23/17 17:45 18:23 Temperature Pulse Rate 78 79 Respiratory 22 Rate Blood Pressure 118/59 O2 Sat by Pulse 99 Oximetry Medical Decision Making - Medical Decision Making Patient is an 82-year-old female chief complaint of increased shortness of breath, productive cough. She's been doing breathing treatments every one to 2 hours. She relates to emergency department placed on 3 L of oxygen. She normally wears 2. Patient does have significant wheezing and rhonchi to bilateral lung neff. Patient EKG was reviewed evidence of any significant abnormalities. Labwork was reviewed and unremarkable. Chest x-ray shows no pneumonia some evidence of atelectasis. Clinically Patient has significant COPD exacerbation or bronchitis. However per cough has been productive. We'll start her on Rocephin and azithromycin. Blood cultures obtained. Discussed we would keep the Patient for IV steroids and continued breathing treatments. Family understands treatment plan will comply. - Lab Data Result diagrams: 11/23/17 17:33 11/23/17 17:33 Lab Results 11/23/17 11/23/17 11/23/17 Range/Units 17:33 17:33 17:33 WBC 8.3 (3.8-10.6) k/uL RBC 3.80 (3.80-5.40) m/uL Hgb 11.2 L (11.4-16.0) gm/dL Hct 35.8 (34.0-46.0) % MCV 94.2 (80.0-100.0) fL MCH 29.5 (25.0-35.0) pg MCHC 31.4 (31.0-37.0) g/dL RDW 14.5 (11.5-15.5) % Plt Count 180 (150-450) k/uL Neutrophils % 61 % Lymphocytes % 24 % Monocytes % 8 % Eosinophils % 5 % Basophils % 0 % Neutrophils # 5.0 (1.3-7.7) k/uL Lymphocytes # 2.0 (1.0-4.8) k/uL Monocytes # 0.7 (0-1.0) k/uL Eosinophils # 0.4 (0-0.7) k/uL Basophils # 0.0 (0-0.2) k/uL Hypochromasia Slight PT (9.0-12.0) sec INR (<1.2) APTT (22.0-30.0) sec Sodium (137-145) mmol/L Potassium (3.5-5.1) mmol/L Chloride (98-107) mmol/L Carbon Dioxide (22-30) mmol/L Anion Gap mmol/L BUN (7-17) mg/dL Creatinine (0.52-1.04) mg/dL Est GFR (CKD-EPI)AfAm (>60 ml/min/1.73 sqM) Est GFR (CKD-EPI)NonAf (>60 ml/min/1.73 sqM) Glucose (74-99) mg/dL Plasma Lactic Acid Juanito 1.9 (0.7-2.0) mmol/L Calcium (8.4-10.2) mg/dL Total Bilirubin (0.2-1.3) mg/dL AST (14-36) U/L ALT (9-52) U/L Alkaline Phosphatase (38-126) U/L Total Creatine Kinase 40 (30-135) U/L CK-MB (CK-2) 1.2 (0.0-2.4) ng/mL CK-MB (CK-2) Rel Index 3.0 Troponin I <0.012 (0.000-0.034) ng/mL Total Protein (6.3-8.2) g/dL Albumin (3.5-5.0) g/dL 11/23/17 11/23/17 Range/Units 17:33 17:33 WBC (3.8-10.6) k/uL RBC (3.80-5.40) m/uL Hgb (11.4-16.0) gm/dL Hct (34.0-46.0) % MCV (80.0-100.0) fL MCH (25.0-35.0) pg MCHC (31.0-37.0) g/dL RDW (11.5-15.5) % Plt Count (150-450) k/uL Neutrophils % % Lymphocytes % % Monocytes % % Eosinophils % % Basophils % % Neutrophils # (1.3-7.7) k/uL Lymphocytes # (1.0-4.8) k/uL Monocytes # (0-1.0) k/uL Eosinophils # (0-0.7) k/uL Basophils # (0-0.2) k/uL Hypochromasia PT 10.2 (9.0-12.0) sec INR 1.0 (<1.2) APTT 20.0 L (22.0-30.0) sec Sodium 143 (137-145) mmol/L Potassium 4.6 (3.5-5.1) mmol/L Chloride 106 (98-107) mmol/L Carbon Dioxide 24 (22-30) mmol/L Anion Gap 13 mmol/L BUN 22 H (7-17) mg/dL Creatinine 0.60 (0.52-1.04) mg/dL Est GFR (CKD-EPI)AfAm >90 (>60 ml/min/1.73 sqM) Est GFR (CKD-EPI)NonAf 85 (>60 ml/min/1.73 sqM) Glucose 106 H (74-99) mg/dL Plasma Lactic Acid Juanito (0.7-2.0) mmol/L Calcium 10.2 (8.4-10.2) mg/dL Total Bilirubin 0.4 (0.2-1.3) mg/dL AST 31 (14-36) U/L ALT 25 (9-52) U/L Alkaline Phosphatase 123 (38-126) U/L Total Creatine Kinase (30-135) U/L CK-MB (CK-2) (0.0-2.4) ng/mL CK-MB (CK-2) Rel Index Troponin I (0.000-0.034) ng/mL Total Protein 6.5 (6.3-8.2) g/dL Albumin 3.6 (3.5-5.0) g/dL 11/23/17 18:32 Accelerated junctional rhythm, septal infarct. undetermined. Abnormal EKG. Ventricular rate of 73 beats were minute. On detected. QRS duration 84 milliseconds. QTC 376/414 ms. - Radiology Data Radiology results: report reviewed Subsegmental atelectasis and scarring at the left lung base increased compared old exam. No heart failure. Disposition Clinical Impression: COPD exacerbation, Dementia, Acute bronchitis Disposition: ADMITTED IP TO THIS HOSP Condition: Stable Is patient prescribed a controlled substance at d/c from ED?: No When asked, does pt state using other controlled substances?: No If prescribed controlled substance>3 days was MAPS reviewed?: No If opioid is for acute pain is fill amount 7 days or less?: No If Rx opioid, was Start Talking consent form obtained?: No Referrals: Kilo De La Paz MD [Primary Care Provider] - 1-2 days Time of Disposition: 18:35
[2017-11-23 17:46] LABS: Basophils % (A) 0 %; Eosinophils # (A) 0.4 k/uL (0-0.7); Eosinophils % (A) 5 %; HCT 35.8 % (34.0-46.0); HGB 11.2 gm/dL (11.4-16.0); Hypochromasia Slight; Lymphocytes % (A) 24 %; MCH 29.5 pg (25.0-35.0); MCHC 31.4 g/dL (31.0-37.0); MCV 94.2 fL (80.0-100.0); Mean Platelet Volume 8.6; Monocytes # (A) 0.7 k/uL (0-1.0); Monocytes % (A) 8 %; Neutrophils % (A) 61 %; Platelet Count 180 k/uL (150-450); RDW 14.5 % (11.5-15.5); WBC 8.3 k/uL (3.8-10.6)
[2017-11-23 17:59] LABS: ALT 25 U/L (9-52); AST 31 U/L (14-36); Albumin 3.6 g/dL (3.5-5.0); Alkaline Phosphatase 123 U/L (38-126); Anion Gap 13 mmol/L; Blood Urea Nitrogen 22 mg/dL (7-17); Calcium 10.2 mg/dL (8.4-10.2); Carbon Dioxide 24 mmol/L (22-30); Chloride 106 mmol/L (98-107); Glucose 106 mg/dL (74-99); Potassium 4.6 mmol/L (3.5-5.1); Sodium 143 mmol/L (137-145); Total Bilirubin 0.4 mg/dL (0.2-1.3); Total Protein 6.5 g/dL (6.3-8.2)
[2017-11-23 18:05] LABS: Creatine Kinase 40 U/L (30-135)
--- NOTE | 2017-11-23 18:08 | XR ---
EXAMINATION TYPE: XR chest 2V DATE OF EXAM: 11/23/2017 COMPARISON: 09/16/2017 HISTORY: Difficulty breathing TECHNIQUE: Frontal and lateral views of the chest are obtained. FINDINGS: There is some linear density at the left lung base. There is no heart failure. Heart size is normal. Thoracic aorta is atheromatous. There is no sign of pleural effusion. IMPRESSION: Subsegmental atelectasis and scarring at the left lung base is increased compared to old exam. No heart failure.
[2017-11-23 18:15] LABS: Prothrombin Time 10.2 sec (9.0-12.0)
[2017-11-23] MEDS ORDERED: cefTRIAXone IN SWFI 1,000 MG/10 ML SYRINGE IVP STA (18:15)
[2017-11-23] MEDS ORDERED: AZITHROMYCIN 500 MG TAB PO STA (18:15)
[2017-11-23 18:18] LABS: Creatine Kinase MB 1.2 ng/mL (0.0-2.4); Troponin I <0.012 ng/mL (0.000-0.034)
[2017-11-23] MEDS ORDERED: guaiFENesin 600 MG TABLET.ER PO PRN (18:38)
[2017-11-23] MEDS ORDERED: ALBUTEROL NEBULIZED 2.5 MG/3 ML INHALATION PRN (18:38)
[2017-11-23] MEDS: IPRATROPIUM-ALBUTEROL 3 ML NEB INHALATION PRN (19:54)
[2017-11-23] MEDS: BUDESONIDE 0.5 MG/2 ML NEBU INHALATION SCH (19:54)
[2017-11-23] MEDS ORDERED: BUDESONIDE 0.5 MG/2 ML NEBU INHALATION SCH (20:00)
[2017-11-23] MEDS: DONEPEZIL 10 MG TAB PO SCH (21:41)
[2017-11-23] MEDS: METOPROLOL TARTRATE 12.5 MG TAB PO SCH (21:41)
[2017-11-23] MEDS: guaiFENesin 600 MG TABLET.ER PO SCH (21:42)
[2017-11-24] MEDS: methylPREDNISolone SOD SUCCI 125 MG/2 ML VIAL IV SCH ×3 (00:35→13:03)
[2017-11-24] MEDS: IPRATROPIUM-ALBUTEROL 3 ML NEB INHALATION PRN ×3 (01:35→16:20)
[2017-11-24] MEDS: LEVOTHYROXINE 50 MCG TAB PO SCH (06:16)
[2017-11-24] MEDS: BUDESONIDE 0.5 MG/2 ML NEBU INHALATION SCH ×2 (07:29→20:11)
[2017-11-24] MEDS: guaiFENesin 600 MG TABLET.ER PO SCH ×2 (08:16→22:12)
[2017-11-24] MEDS: AZITHROMYCIN 500 MG TAB PO SCH (08:17)
[2017-11-24] MEDS: DONEPEZIL 10 MG TAB PO SCH ×2 (08:17→22:12)
[2017-11-24] MEDS: METOPROLOL TARTRATE 12.5 MG TAB PO SCH ×2 (08:17→22:11)
[2017-11-24] MEDS ORDERED: FUROSEMIDE 10 MG/ML 4 ML VIAL IV STA (15:44)
[2017-11-24] MEDS ORDERED: MELATONIN 3 MG TABLET PO PRN (15:53)
[2017-11-24] MEDS ORDERED: ONDANSETRON 4 MG/2 ML VIAL IVP PRN (15:53)
[2017-11-24] MEDS ORDERED: CALCIUM CARBONATE 500 MG CHEWABLE PO PRN (15:53)
[2017-11-24] MEDS ORDERED: MAGNESIUM HYDROXIDE 2,400 MG/10 ML CUP PO PRN (15:53)
[2017-11-24] MEDS ORDERED: ALPRAZolam 0.25 MG TAB PO PRN (15:53)
[2017-11-24] MEDS ORDERED: LACTULOSE 20 GM/30 ML CUP PO PRN (15:53)
[2017-11-24] MEDS: methylPREDNISolone SOD SUCCI 40 MG/ML 1 ML VIAL IV SCH (16:37)
--- NOTE | 2017-11-24 16:53 | HP ---
HISTORY AND PHYSICAL DATE OF ADMISSION: 11/23/2017 DATE OF SERVICE: 11/24/2017 PRESENTING COMPLAINT: Short of breath, cough. HISTORY OF PRESENTING COMPLAINT: This is an 82-year-old patient of Dr. De La Paz. Chronic stable medical conditions include dementia, GERD, hard of hearing, hyperlipidemia, hypertension, seizure, sleep apnea, hypothyroid and chronic hypoxic respiratory failure. She lives with her daughter. Patient presents with getting more and more short of breath over the last few days. She has a cough, decreased appetite. Denies any fever. Bringing up sputum; does not know the color. Tired and rundown. REVIEW OF SYSTEMS: CONSTITUTIONAL: Tired. HEENT: Decreased hearing. RESPIRATORY: As above. CARDIOVASCULAR: None. GASTROINTESTINAL: Heartburn. GENITOURINARY: None. MUSCULOSKELETAL: Pain in joints. DERMATOLOGICAL: None. HEMATOLOGICAL: None. LYMPHATICS: None. PSYCHIATRY: Forgetful. NEUROLOGICAL: None. PAST MEDICAL HISTORY: 1. Stroke. 2. Dementia. 3. GERD. 4. Hard of hearing. 5. Hyperlipidemia. 6. Hypertension. 7. Osteoarthritis. 8. NC. 9. Seizure. 10.Obstructive sleep apnea. 11.Hypothyroid. 12.Chronic hypoxic respiratory failure. PAST SURGICAL HISTORY: 1. Back surgery. 2. Carpal tunnel release, right hand. SOCIAL HISTORY: No history of smoking. No alcohol since 2003. Lives with her daughter Shauna. Used to work in a factory. Uses a 4-wheel walker with seat. FAMILY HISTORY: Hypertension. HOME MEDICATIONS: 1. Keppra 750 mg p.o. b.i.d. 2. Guaifenesin 400 mg q.4 p.r.n. 3. Lopressor 12.5 p.o. b.i.d. 4. Synthroid 50 mcg p.o. daily. 5. Atrovent q.4 p.r.n. 6. Aricept 10 mg b.i.d. 7. Pulmicort 0.5 nebulizer b.i.d. 8. Ventolin 2.5 q.4 p.r.n. ALLERGIES: 1. XANAX. 2. ATIVAN. 3. DILANTIN. PHYSICAL EXAMINATION: VITAL SIGNS ON PRESENTATION: Temperature 97.9, pulse 55, respiration 18, blood pressure 130/72, pulse ox 97% on 2.5 L. GENERAL APPEARANCE: Average build. Sitting up, short of breath, tired. EYES: Pupils equal. Conjunctivae normal. HEENT: External appearance of nose and ears normal. Oral cavity missing dentition. NECK: JVD unable to assess. Mass not palpable. RESPIRATORY: Effort increased. LUNGS: Diminished breath sounds. Prolonged expiration. Some crackles. CARDIOVASCULAR: First and second sounds normal. No edema. ABDOMEN: Soft, nontender. Liver and spleen not palpable. PSYCHIATRY: Alert, oriented x3. Mood and affect slightly anxious. NEUROLOGICAL: Pupils equal. Cranial nerves grossly intact. Power and sensation grossly intact. MUSCULOSKELETAL: Evidence of osteoarthritis in multiple joints. INVESTIGATIONS: White count 8.3, potassium 4.6, BUN 22, creatinine 0.60. Troponin less than 0.012. Chest x-ray reviewed by me shows some possible infiltrates. Cannot rule out venous prominence. ASSESSMENT: 1. Acute chronic obstructive pulmonary disease exacerbation. 2. Acute tracheobronchitis versus pneumonia; suspect Gram-negative organism. 3. 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 4. Gastroesophageal reflux disease. 5. Hard of hearing. 6. Essential hypertension. 7. Hyperlipidemia. 8. Primary osteoarthritis. 9. Chronic seizure disorder. 10.Hypothyroid. 11.Chronic hypoxic respiratory failure. 12.Obstructive sleep apnea; does not use CPAP machine. 13.Coronary artery disease with prior history of myocardial infarction. PLAN: Patient is started on DuoNeb, IV Solu-Medrol. I also added Zithromax. Will give one dose of IV Lasix. Will check a BNP. Home medications are resumed. Care was discussed with the patient. Questions were answered. MMODL / IJN: [id number] /
[2017-11-24] MEDS: IPRATROPIUM-ALBUTEROL 3 ML NEB INHALATION SCH ×2 (20:13)
[2017-11-24] MEDS ORDERED: cefTRIAXone IN SWFI 1,000 MG/10 ML SYRINGE IVP SCH (21:00)
[2017-11-25] MEDS: methylPREDNISolone SOD SUCCI 40 MG/ML 1 ML VIAL IV SCH ×3 (00:09→15:55)
[2017-11-25] MEDS: IPRATROPIUM-ALBUTEROL 3 ML NEB INHALATION SCH ×7 (00:43→23:39)
[2017-11-25] MEDS: LEVOTHYROXINE 50 MCG TAB PO SCH (06:06)
[2017-11-25] MEDS: BUDESONIDE 0.5 MG/2 ML NEBU INHALATION SCH (07:31)
[2017-11-25] MEDS: DONEPEZIL 10 MG TAB PO SCH ×2 (08:36→21:53)
[2017-11-25] MEDS: AZITHROMYCIN 500 MG TAB PO SCH (08:36)
[2017-11-25] MEDS: METOPROLOL TARTRATE 12.5 MG TAB PO SCH ×2 (08:36→21:53)
[2017-11-25] MEDS: guaiFENesin 600 MG TABLET.ER PO SCH ×2 (08:37→21:53)
[2017-11-25] MEDS: ACETAMINOPHEN TAB 325 MG TAB PO PRN (08:50)
--- NOTE | 2017-11-25 11:22 | P.CNPUL ---
History of Present Illness Consult date: 11/25/17 Reason for consult: dyspnea, cough, COPD, hypoxemia Chief complaint: Shortness of breath History of present illness: Pulmonary consult dated 11/25/2017 82-year-old female who presented to the emergency room on November 23 with complaints of increasing cough congestion shortness of breath for the past 4 days prior to admission to the ER. She apparently thought she initially had ALLERGIES. She states that she was having difficulty breathing. She was using her breathing treatments every 2 hours. She states that she was admitted in the past for pneumonia. This information that was obtained by the ER physician. She had no fever chills chest pain back pain abdominal pain nausea vomiting diarrhea or any other complaints for that matter. I find her today to be in her usual state of health. She is cantankerous and wants to go home. Not a particularly good historian. I have not seen her in the office for some time because she's been very limited in her mobility and she is not stopped coming to the office. She does have a history of severe COPD. In addition to COPD, she has a history of heart failure CVA dementia GERD poor hearing hyperlipidemia hypertension myocardial infarction osteoarthritis pneumonia seizure disorder sleep apnea syndrome and hypothyroidism. The rest of the history can be obtained from the notes from the emergency room physician. It notes that she was a never smoker but I believe Mrs. Arguello did smoke in the past. Review of Systems A 12 point review of systems is very unreliable. She apparently presented with complaints of shortness of breath chest congestion and cough. Past Medical History Past Medical History: Heart Failure, COPD, CVA/TIA, Dementia, GERD/Reflux, Hearing Disorder / Deafness, Hyperlipidemia, Hypertension, Myocardial Infarction ([place]), Osteoarthritis ([place]), Pneumonia, Seizure Disorder, Sleep Apnea/ CPAP/BIPAP, Thyroid Disorder Additional Past Medical History / Comment(s): COPD, chronic hypoxic respiratory failure, impaired hearing, impaired vision, obstructive sleep apnea but she does not utilize any CPAP therapy, remote history of C. diff colitis, hypothyroidism, previous TIA, dementia, acid reflux, coronary artery disease with previous myocardial infarction, seizure disorder, calcified gallstone Last Myocardial Infarction Date:: UNK History of Any Multi-Drug Resistant Organisms: None Reported Past Surgical History: Back Surgery Additional Past Surgical History / Comment(s): Carpal tunnel release involving the right hand, back surgery involving laminectomy and fusion. She has had also previous lumpectomy Past Anesthesia/Blood Transfusion Reactions: No Reported Reaction Past Psychological History: Anxiety Additional Psychological History / Comment(s): lives in own home with her daughter dipesh, uses a 4 wheeled walker w/seat Smoking Status: Never smoker Past Alcohol Use History: None Reported Additional Past Alcohol Use History / Comment(s): no etoh no since 2003 Past Drug Use History: None Reported - Past Family History Father Additional Family Medical History / Comment(s): AT AGE 89 Mother Family Medical History: Hypertension Additional Family Medical History / Comment(s): AT AGE 47. HAD HX RHEUMATIC FEVER Medications and Allergies Home Medications Medication Instructions Recorded Confirmed Type Levothyroxine Sodium [Synthroid] 50 mcg PO DAILY 04/01/14 11/23/17 History Metoprolol Tartrate [Lopressor] 12.5 mg PO BID 04/01/14 11/23/17 History Budesonide [Pulmicort] 0.5 mg INHALATION RT-BID 04/01/15 11/23/17 History Donepezil [Aricept] 10 mg PO BID 04/01/15 11/23/17 History Albuterol Nebulized [Ventolin 2.5 mg INHALATION RT-Q4H PRN 05/25/17 11/23/17 History Nebulized] Ipratropium Nebulized [Atrovent 0.5 mg INHALATION RT-Q4H PRN 05/25/17 11/23/17 History Nebulized] levETIRAcetam [Keppra] 750 mg PO BID 09/16/17 11/23/17 History guaiFENesin 400 mg PO Q4H PRN 11/23/17 11/23/17 History Allergies Allergy/AdvReac Type Severity Reaction Status Date / Time alprazolam [From Xanax] AdvReac Hallucinati Verified 11/23/17 17:04 ons lorazepam [From Ativan] AdvReac Hallucinati Verified 11/23/17 17:04 ons phenytoin sodium AdvReac Hallucinati Verified 11/23/17 17:04 [From Dilantin] ons Physical Exam Osteopathic Statement: *. No significant issues noted on an osteopathic structural exam other than those noted in the History and Physical/Consult. Vitals: Vital Signs Temp Pulse Pulse Resp BP Pulse Ox 11/25/17 07:45 89 11/25/17 07:31 85 99 11/25/17 05:30 98.4 F 70 20 136/68 95 11/25/17 04:27 92 11/25/17 04:16 92 11/25/17 00:59 92 11/25/17 00:43 92 11/25/17 00:00 20 11/24/17 21:38 98.4 F 72 20 135/67 94 L 11/24/17 20:32 88 11/24/17 20:13 87 11/24/17 16:32 92 11/24/17 16:20 88 11/24/17 14:40 98.3 F 68 18 109/63 95 11/24/17 11:57 84 11/24/17 11:39 84 Intake and Output 11/24/17 11/25/17 11/25/17 22:59 06:59 14:59 Intake Total 240 Balance 240 Intake: Oral 240 Other: Voiding Method Toilet # Voids 1 2 No acute distress, confused, poor historian, nasal O2 in place. HEENT examination is grossly unremarkable. Mucous membranes are moist. No oral lesions. Neck supple. Full range of motion. No adenopathy thyromegaly or neck vein distention. Cardiovascular examination reveals regular rhythm rate. S1-S2 normal. No S3 or S4. No discernible murmur noted. Heart sounds are distant. Lungs reveal diffuse mild coarse rhonchi and wheezes. Breath sounds are equal bilaterally. There is prolongation. Breath sounds are diminished throughout. Abdomen soft bowel sounds are heard. No masses or tenderness. Extremities are intact. No cyanosis clubbing or edema. Skin is without rash or lesion. Neurologic examination is difficult to assess. Results - Laboratory Findings CBC and BMP: 11/23/17 17:33 11/23/17 17:33 PT/INR, D-dimer PT 10.2 sec (9.0-12.0) 11/23/17 17:33 INR 1.0 (<1.2) 11/23/17 17:33 Abnormal lab findings: Abnormal Labs 11/23/1718 11/23/17 17:33 17:33 17:33 Hgb 11.2 L APTT 20.0 L BUN 22 H Glucose 106 H - Diagnostic Findings Chest x-ray: report reviewed (Chest x-ray labs and medications are all reviewed. ), image reviewed Assessment and Plan Assessment: Assessment COPD exacerbation possibly complicated by mild purulent tracheobronchitis, without evidence of any significant pneumonia. History of CHF. History of CVA/TIA Dementia. Good Deafness Hyperlipidemia Hypertension Myocardial infarction Osteoarthritis Previous history of pneumonia History of seizure disorder. History of sleep apnea syndrome, noncompliant with CPAP Hypothyroidism Plan: Plan dated 11/25/2017 Chest x-ray, labs, and medications are all reviewed. White count is 8.3 hemoglobin 11.2 hematocrit 35.8 and platelet count is normal. PT INR and PTT are essentially normal. Electrolytes look normal as well. N-terminal proBNP is only mildly elevated at 1040. Chest x-ray has been reviewed. Medications as it relates to the breathing medications include Mevacor to 0.5 mg twice a day and duo neb 4 times a day and when necessary, Solu-Medrol, Mucinex, and antibiotics in the form of Rocephin and Zithromax. Time with Patient: Greater than 30
[2017-11-25] MEDS: BUDESONIDE 1 MG/2 ML NEBU INHALATION SCH ×2 (11:44→19:30)
[2017-11-25] MEDS: FORMOTEROL FUMARATE 20 MCG/2 ML NEBU INHALATION SCH (19:30)
[2017-11-26] MEDS: methylPREDNISolone SOD SUCCI 40 MG/ML 1 ML VIAL IV SCH ×4 (00:11→23:54)
[2017-11-26] MEDS: IPRATROPIUM-ALBUTEROL 3 ML NEB INHALATION SCH ×5 (03:26→19:16)
[2017-11-26] MEDS: LEVOTHYROXINE 50 MCG TAB PO SCH (05:53)
--- NOTE | 2017-11-26 06:51 | PN ---
PROGRESS NOTE DATE OF SERVICE: 11/25/17. PRESENTING COMPLAINT: Short of breath. INTERVAL HISTORY: The patient admitted with acute COPD exacerbation and tracheobronchitis. Congested cough, not bringing up much. Eating a little bit better, tired and short of breath. REVIEW OF SYSTEMS: Done for constitutional, cardiovascular, GI, pulmonary; relevant findings as above. CURRENT MEDICATIONS: Reviewed that include Zithromax, IV Solu-Medrol, DuoNeb. PHYSICAL EXAMINATION: Temperature 97.6, pulse 78, respirations 18, blood pressure 155/79, pulse ox 97% on 3.5 L. GENERAL APPEARANCE: Sitting up, tired-appearing. EYES: Pupils equal. Conjunctivae normal. HEENT: External appearance of nose and ears normal. Oral cavity, missing dentition. NECK: JVD not raised. Mass not palpable. RESPIRATORY: Effort increased. Lungs, decreased breath sounds and prolonged expiration. Occasional crackles. CARDIOVASCULAR: 1st and 2nd sounds normal. No edema. ABDOMEN: Soft, nontender. Liver and spleen not palpable. PSYCHIATRY: Alert and oriented x3 with slightly anxious-appearing. INVESTIGATIONS: ProBNP is 1040. ASSESSMENT: 1. Acute chronic obstructive pulmonary disease exacerbation. 2. Acute tracheobronchitis. Doubt pneumonia. 3. 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 4. Gastroesophageal reflux disease. 5. Hard of hearing. 6. Essential hypertension. 7. Hyperlipidemia. 8. Primary osteoarthritis. 9. Chronic seizure disorder. 10.Hypothyroid. 11.Chronic hypoxic respiratory failure. 12.Obstructive sleep apnea, does not use CPAP machine. 13.Coronary artery disease with prior history of myocardial infarction. PLAN: Continue current medication and treatment plan including antibiotics, DuoNeb, Solu- Medrol. Repeat labs in the morning. MMODL / IJN: [id number] /
[2017-11-26] MEDS: FORMOTEROL FUMARATE 20 MCG/2 ML NEBU INHALATION SCH ×2 (07:14→19:16)
[2017-11-26] MEDS: BUDESONIDE 1 MG/2 ML NEBU INHALATION SCH ×2 (07:14→19:16)
[2017-11-26 07:39] LABS: Basophils % (A) 0 %; Eosinophils # (A) 0.1 k/uL (0-0.7); Eosinophils % (A) 1 %; HCT 34.3 % (34.0-46.0); HGB 10.9 gm/dL (11.4-16.0); Lymphocytes # (A) 0.7 k/uL (1.0-4.8); Lymphocytes % (A) 10 %; MCH 29.9 pg (25.0-35.0); MCHC 31.7 g/dL (31.0-37.0); MCV 94.3 fL (80.0-100.0); Monocytes # (A) 0.3 k/uL (0-1.0); Monocytes % (A) 4 %; Neutrophils # (A) 5.9 k/uL (1.3-7.7); Neutrophils % (A) 85 %; Platelet Count 190 k/uL (150-450); RBC 3.64 m/uL (3.80-5.40); RDW 14.6 % (11.5-15.5)
[2017-11-26 07:55] LABS: Anion Gap 9 mmol/L; Blood Urea Nitrogen 32 mg/dL (7-17); Carbon Dioxide 26 mmol/L (22-30); Chloride 105 mmol/L (98-107); Glucose 148 mg/dL (74-99); Potassium 4.7 mmol/L (3.5-5.1); Sodium 140 mmol/L (137-145)
[2017-11-26] MEDS: METOPROLOL TARTRATE 12.5 MG TAB PO SCH ×2 (08:49→20:46)
[2017-11-26] MEDS: AZITHROMYCIN 500 MG TAB PO SCH (08:49)
[2017-11-26] MEDS: DONEPEZIL 10 MG TAB PO SCH ×2 (08:49→20:44)
[2017-11-26] MEDS: guaiFENesin 600 MG TABLET.ER PO SCH ×2 (08:49→20:45)
--- NOTE | 2017-11-26 11:19 | P.PN ---
Subjective Progress Note Date: 11/26/17 Principal diagnosis: Acute COPD exacerbation, possibly complicated by mild purulent tracheobronchitis , without evidence of any significant pneumonia Pulmonary consult dated 11/25/2017 82-year-old female who presented to the emergency room on November 23 with complaints of increasing cough congestion shortness of breath for the past 4 days prior to admission to the ER. She apparently thought she initially had ALLERGIES. She states that she was having difficulty breathing. She was using her breathing treatments every 2 hours. She states that she was admitted in the past for pneumonia. This information that was obtained by the ER physician. She had no fever chills chest pain back pain abdominal pain nausea vomiting diarrhea or any other complaints for that matter. I find her today to be in her usual state of health. She is cantankerous and wants to go home. Not a particularly good historian. I have not seen her in the office for some time because she's been very limited in her mobility and she is not stopped coming to the office. She does have a history of severe COPD. In addition to COPD, she has a history of heart failure CVA dementia GERD poor hearing hyperlipidemia hypertension myocardial infarction osteoarthritis pneumonia seizure disorder sleep apnea syndrome and hypothyroidism. The rest of the history can be obtained from the notes from the emergency room physician. It notes that she was a never smoker but I believe Mrs. Arguello did smoke in the past On 11/26/2017 patient seen in follow-up. Breathing better, however she states she coughed all night. Lung sounds reveal coarse rhonchi and diffuse wheezes with prolongation of the expiratory phase., Breath sounds are diminished. Pulse ox on 4 L per nasal cannula was 99%, she remains afebrile. No new chest x -rays, today's lab work has been reviewed, white count of 7.0, hemoglobin is 10.9, electrolytes are normal, BUN is 32, creatinine 0.69. She states she is improving, he is now able to bring up some sputum. Objective - Vital Signs Vital signs: Vital Signs Temp 97.6 F 11/25/17 22:35 Pulse 88 11/26/17 11:07 Resp 16 11/26/17 05:00 BP 146/81 11/26/17 05:00 Pulse Ox 99 11/26/17 07:32 Intake & Output 11/25/17 11/26/17 11/26/17 18:59 06:59 18:59 Intake Total 960 Balance 960 Weight 69.5 kg Intake: Oral 960 Other: Voiding Method Toilet Toilet # Voids 3 2 - Exam No acute distress, confused, poor historian, nasal O2 in place. HEENT examination is grossly unremarkable. Mucous membranes are moist. No oral lesions. Neck supple. Full range of motion. No adenopathy thyromegaly or neck vein distention. Cardiovascular examination reveals regular rhythm rate. S1-S2 normal. No S3 or S4. No discernible murmur noted. Heart sounds are distant. Lungs reveal diffuse mild coarse rhonchi and wheezes. Breath sounds are equal bilaterally. There is prolongation. Breath sounds are diminished throughout. Abdomen soft bowel sounds are heard. No masses or tenderness. Extremities are intact. No cyanosis clubbing or edema. Skin is without rash or lesion. Neurologic examination is difficult to assess. - Labs CBC & Chem 7: 11/26/17 06:51 11/26/17 06:51 Labs: Abnormal Lab Results - Last 24 Hours (Table) 11/26/17 11/26/17 Range/Units 06:51 06:51 RBC 3.64 L (3.80-5.40) m/uL Hgb 10.9 L (11.4-16.0) gm/dL Lymphocytes # 0.7 L (1.0-4.8) k/uL BUN 32 H (7-17) mg/dL Glucose 148 H (74-99) mg/dL Microbiology - Last 24 Hours (Table) 11/23/17 17:33 Blood Culture - Preliminary Blood No Growth after 48 hours 11/24/17 20:27 Gram Stain - Preliminary Sputum Sputum Culture - Preliminary Assessment and Plan Plan: Assessment: COPD exacerbation possibly complicated by mild purulent tracheobronchitis, without evidence of any significant pneumonia. History of CHF. History of CVA/TIA Dementia. Good Deafness Hyperlipidemia Hypertension Myocardial infarction Osteoarthritis Previous history of pneumonia History of seizure disorder. History of sleep apnea syndrome, noncompliant with CPAP Hypothyroidism Plan: Continue current plan of treatment, continue antibiotics, IV Solu-Medrol, nebulized bronchodilators. Patient is starting to feel better, still has persistent coughing episodes. Vital signs are stable, continue with current antibiotic coverage. Patient's CODE STATUS needs to be addressed. I performed a history & physical examination of the patient and discussed their management with my nurse practitioner, Veronique Cobb. I reviewed the nurse practitioner's note and agree with the documented findings and plan of care. Lung sounds are diffuse wheezes, and rhonchi. The findings and the impression was discussed with the patient. I attest to the documentation by the nurse practitioner. Time with Patient: Less than 30
[2017-11-26] MEDS: ACETAMINOPHEN TAB 325 MG TAB PO PRN (12:14)
--- NOTE | 2017-11-26 21:55 | PN ---
PROGRESS NOTE DATE OF SERVICE: 11/26/2017 PRESENTING COMPLAINT: Short of breath. INTERVAL HISTORY: This is a patient with acute COPD exacerbation, tracheobronchitis, still complaining of shortness of breath, feels more tired today, did eat a little bit, run down, on nebulized bronchodilators, steroids. REVIEW OF SYSTEMS: Done for constitutional, cardiovascular, GI, pulmonary; relevant findings as above. CURRENT MEDICATIONS: Reviewed that include: 1. Nebulized bronchodilator. 2. IV Solu-Medrol. EXAMINATION: Temperature 96.8, pulse 74, respirations 16, blood pressure 176/73, pulse 100% on 4L. GENERAL APPEARANCE: Lying in bed, tired-appearing. EYES: Pupils equal. Conjunctivae normal. HEENT: External nose and ears normal. Oral cavity missing dentition. Decreased hearing. NECK: JVD not raised. Mass not palpable. RESPIRATORY: Effort increased. LUNGS: Decreased breath sounds. Prolonged expiration. CARDIOVASCULAR: First and second sounds normal. No edema. ABDOMEN: Soft, nontender. Liver and spleen not palpable. PSYCHIATRY: Alert and oriented x3. Mood and affect anxious-appearing. INVESTIGATIONS: White count 7, hemoglobin 10.9. ASSESSMENT: 1. Acute chronic obstructive pulmonary disease exacerbation from acute tracheobronchitis, slow to respond. 2. 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 3. Gastroesophageal reflux disease. 4. Hard of hearing. 5. Essential hypertension. 6. Hyperlipidemia. 7. Primary osteoarthritis. 8. Chronic seizure disorder. 9. Hypothyroid. 10.Chronic hypoxic respiratory failure. 11.Obstructive sleep apnea, does not use CPAP machine. 12.Coronary artery disease, prior history of myocardial infarction. PLAN: Continue patient on current medication and treatment plan, including DuoNeb, IV Solu- Medrol. Care was discussed with the patient. MMODL / IJN: [id number] /
[2017-11-27] MEDS: IPRATROPIUM-ALBUTEROL 3 ML NEB INHALATION SCH ×6 (00:08→19:50)
[2017-11-27] MEDS: LEVOTHYROXINE 50 MCG TAB PO SCH (05:34)
[2017-11-27 07:52] LABS: Anion Gap 8 mmol/L; Blood Urea Nitrogen 32 mg/dL (7-17); Calcium 9.8 mg/dL (8.4-10.2); Carbon Dioxide 30 mmol/L (22-30); Chloride 103 mmol/L (98-107); Glucose 98 mg/dL (74-99); Potassium 5.2 mmol/L (3.5-5.1); Sodium 141 mmol/L (137-145)
[2017-11-27] MEDS: AZITHROMYCIN 500 MG TAB PO SCH (08:53)
[2017-11-27] MEDS: methylPREDNISolone SOD SUCCI 40 MG/ML 1 ML VIAL IV SCH ×2 (08:53→17:01)
[2017-11-27] MEDS: METOPROLOL TARTRATE 12.5 MG TAB PO SCH (08:53)
[2017-11-27] MEDS: DONEPEZIL 10 MG TAB PO SCH (08:53)
[2017-11-27] MEDS: guaiFENesin 600 MG TABLET.ER PO SCH (08:53)
[2017-11-27] MEDS: ACETAMINOPHEN TAB 325 MG TAB PO PRN (08:57)
[2017-11-27] MEDS ORDERED: FUROSEMIDE 10 MG/ML 2 ML VIAL IV SCH (09:00)
[2017-11-27] MEDS: BUDESONIDE 1 MG/2 ML NEBU INHALATION SCH ×2 (09:14→19:49)
[2017-11-27] MEDS: FORMOTEROL FUMARATE 20 MCG/2 ML NEBU INHALATION SCH ×2 (09:14→19:49)
--- NOTE | 2017-11-27 09:19 | P.PN ---
Subjective Progress Note Date: 11/27/17 Principal diagnosis: Acute on chronic hypoxic respiratory failure secondary to an acute exacerbation of chronic obstructive pulmonary disease. Pulmonary consult dated 11/25/2017 82-year-old female who presented to the emergency room on November 23 with complaints of increasing cough congestion shortness of breath for the past 4 days prior to admission to the ER. She apparently thought she initially had ALLERGIES. She states that she was having difficulty breathing. She was using her breathing treatments every 2 hours. She states that she was admitted in the past for pneumonia. This information that was obtained by the ER physician. She had no fever chills chest pain back pain abdominal pain nausea vomiting diarrhea or any other complaints for that matter. I find her today to be in her usual state of health. She is cantankerous and wants to go home. Not a particularly good historian. I have not seen her in the office for some time because she's been very limited in her mobility and she is not stopped coming to the office. She does have a history of severe COPD. In addition to COPD, she has a history of heart failure CVA dementia GERD poor hearing hyperlipidemia hypertension myocardial infarction osteoarthritis pneumonia seizure disorder sleep apnea syndrome and hypothyroidism. The rest of the history can be obtained from the notes from the emergency room physician. It notes that she was a never smoker but I believe Mrs. Arguello did smoke in the past On 11/26/2017 patient seen in follow-up. Breathing better, however she states she coughed all night. Lung sounds reveal coarse rhonchi and diffuse wheezes with prolongation of the expiratory phase., Breath sounds are diminished. Pulse ox on 4 L per nasal cannula was 99%, she remains afebrile. No new chest x -rays, today's lab work has been reviewed, white count of 7.0, hemoglobin is 10.9, electrolytes are normal, BUN is 32, creatinine 0.69. She states she is improving, he is now able to bring up some sputum. The patient is seen today 11/27/2017 in follow-up on the regular medical floor. She is awake and alert in no acute distress. She is breathing easier today as compared to yesterday. She has a loose nonproductive cough. Blood and sputum cultures revealed no growth. She is afebrile. Maintaining good O2 saturations in the upper 90s on 2 L/m per nasal cannula. Creatinine 0.68. Objective - Vital Signs Vital signs: Vital Signs Temp 97.8 F 11/27/17 08:50 Pulse 74 11/27/17 08:50 Resp 18 11/27/17 08:50 BP 173/77 11/27/17 08:50 Pulse Ox 97 11/27/17 08:50 Intake & Output 11/26/17 11/27/17 11/27/17 18:59 06:59 18:59 Intake Total 890 Balance 890 Weight 67.5 kg Intake: Oral 890 Other: Voiding Method Toilet Toilet Toilet # Voids 3 3 - Exam No acute distress, confused, poor historian, nasal O2 in place. HEENT examination is grossly unremarkable. Mucous membranes are moist. No oral lesions. Neck supple. Full range of motion. No adenopathy thyromegaly or neck vein distention. Cardiovascular examination reveals regular rhythm rate. S1-S2 normal. No S3 or S4. No discernible murmur noted. Heart sounds are distant. Lungs reveal diffuse mild coarse rhonchi and wheezes. Breath sounds are equal bilaterally. There is prolongation. Breath sounds are diminished throughout. Abdomen soft bowel sounds are heard. No masses or tenderness. Extremities are intact. No cyanosis clubbing or edema. Skin is without rash or lesion. Neurologic examination is difficult to assess. - Labs CBC & Chem 7: 11/26/17 06:51 11/27/17 07:14 Labs: Abnormal Lab Results - Last 24 Hours (Table) 11/27/17 Range/Units 07:14 Potassium 5.2 H (3.5-5.1) mmol/L BUN 32 H (7-17) mg/dL Microbiology - Last 24 Hours (Table) 11/23/17 17:33 Blood Culture - Preliminary Blood No Growth after 72 hours Assessment and Plan Assessment: Assessment: COPD exacerbation possibly complicated by mild purulent tracheobronchitis, without evidence of any significant pneumonia. History of CHF. History of CVA/TIA Dementia. Good Deafness Hyperlipidemia Hypertension Myocardial infarction Osteoarthritis Previous history of pneumonia History of seizure disorder. History of sleep apnea syndrome, noncompliant with CPAP Hypothyroidism Plan: The patient was seen and evaluated by Dr. Kauffman. She is cleared for discharge from the pulmonary standpoint. She'll complete a prednisone burst and taper. Complete her course of antibiotics. Resume her home pulmonary medications. I, the cosigning physician, performed a history & physical examination of the patient. Lungs sounds have faint end expiratory wheeze Maintaining good O2 saturations in the 90s on 2 L/m per nasal cannula. I discussed the assessment and plan of care with my nurse practitioner, Mariama Harris. I attest to the above note as dictated by her.
[2017-11-27 15:17] VITALS: BP 130/72; RESP 16; TEMP 97.6
[2017-11-27 16:36] VITALS: PULSE 76
[2017-11-27] MEDS ORDERED: FLUCONAZOLE 100 MG TAB PO ONE (17:45)
--- NOTE | 2017-11-27 18:50 | DS ---
DISCHARGE SUMMARY DATE OF ADMISSION: 11/23/2017. DATE OF DISCHARGE: 11/27/2017 FINAL DIAGNOSES: 1. Acute chronic obstructive pulmonary disease exacerbation, acute tracheobronchitis. 2. Oropharyngeal candidiasis secondary to steroids. 3. 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 4. Gastroesophageal reflux disease. 5. Hard of hearing. 6. Essential hypertension. 7. Hyperlipidemia. 8. Primary osteoarthritis. 9. Chronic seizure disorder. 10.Hypothyroid. 11.Chronic hypoxic respiratory failure from underlying chronic obstructive pulmonary disease. 12.Obstructive sleep apnea, does not use CPAP. 13.Coronary artery disease, prior history of myocardial infarction. HOSPITAL COURSE: Patient presented with COPD exacerbation and tracheobronchitis. Treated with steroids, nebulized bronchodilators. Doing much better by the time of discharge, tolerating a diet, feeling well. EXAM: LUNGS: Decreased breath sounds. Oropharynx shows some thrush. CONSULTATION: Dr. Kauffman from pulmonary. DISCHARGE MEDICATIONS: 1. Synthroid 50 mcg a day. 2. Lopressor 12.5 p.o. b.i.d. 3. Pulmicort 0.5 p.o. b.i.d. 4. Aricept 10 mg b.i.d. 5. Nebulizer 2.5 q.4h p.r.n. 6. Albuterol p.r.n. 7. DuoNeb q.i.d. 8. Atrovent discontinued. 9. Keppra 750 p.o. b.i.d. 10.Guaifenesin 4 mg q.4 p.r.n. 11.Zithromax 500 mg p.o. daily, 3 tablets. 12.Diflucan 100 mg p.o. daily. 13.Prednisone taper. FOLLOWUP: Follow up with Dr. De La Paz in 3 days. MMODL / IJN: [id number] /
== END 2017-11-27 19:54 | disposition home or self-care (01) | DRG 190 ==
LOC: EC 15:40 → INTOOBSV 19:06 → 5MS5E 19:06 → OBSVTOIN 11-26 19:15 → 5MS5E 11-26 20:11
PROVIDERS: ADMIT Hospitalist; ATTEND Hospitalist
DX: J44.1 Chronic obstructive pulmonary disease with (acute) exacerbation (principal); J96.21 Acute and chronic respiratory failure with hypoxia; B37.0 Candidal stomatitis; J44.0 Chronic obstructive pulmonary disease with (acute) lower respiratory infection; J20.9 Acute bronchitis, unspecified; K21.9 Gastro-esophageal reflux disease without esophagitis; H91.90 Unspecified hearing loss, unspecified ear; E03.9 Hypothyroidism, unspecified; E78.5 Hyperlipidemia, unspecified; G30.9 Alzheimer's disease, unspecified; F02.80 Dementia in other diseases classified elsewhere, unspecified severity, without behavioral disturbance, psychotic disturbance, mood disturbance, and anxiety; G47.33 Obstructive sleep apnea (adult) (pediatric); G40.909 Epilepsy, unspecified, not intractable, without status epilepticus; I25.10 Atherosclerotic heart disease of native coronary artery without angina pectoris; T38.0X5A Adverse effect of glucocorticoids and synthetic analogues, initial encounter; I11.0 Hypertensive heart disease with heart failure; I50.9 Heart failure, unspecified; H54.7 Unspecified visual loss; M19.91 Primary osteoarthritis, unspecified site; Z99.81 Dependence on supplemental oxygen; Z87.01 Personal history of pneumonia (recurrent); Z86.73 Personal history of transient ischemic attack (TIA), and cerebral infarction without residual deficits; I25.2 Old myocardial infarction; Z79.899 Other long term (current) drug therapy; Z91.19 Patient's noncompliance with other medical treatment and regimen; Z87.891 Personal history of nicotine dependence; Z82.49 Family history of ischemic heart disease and other diseases of the circulatory system; Z88.8 Allergy status to other drugs, medicaments and biological substances
CPT/HCPCS: 36415; 71046; 80048; 80053; 82550; 82553; 83605; 83880; 84484; 85025; 85610; 85730; 87040; 87070; 87205; 93005; 94640; 94760; 96361; 96374; 96375; 99285

== ENCOUNTER 2018-06-02 11:20 | Inpatient (IN) | payer MEDICARE ==
[2018-06-02] MEDS ORDERED: methylPREDNISolone SOD SUCCI 125 MG/2 ML VIAL IV STA (11:56)
[2018-06-02] MEDS ORDERED: IPRATROPIUM-ALBUTEROL 3 ML NEB INHALATION STA (11:56)
[2018-06-02] MEDS ORDERED: SODIUM CHLORIDE 0.9% 1,000 ML IV STA (11:56)
--- NOTE | 2018-06-02 11:59 | ED ---
General Adult HPI - General Chief complaint: Shortness of Breath Stated complaint: congested, venancio Time Seen by Provider: 06/02/18 11:49 Source: patient, family, RN notes reviewed Mode of arrival: wheelchair Limitations: physical limitation - History of Present Illness Initial comments: Patient is a pleasant 82-year-old female presenting to the emergency Department with cough congestion and difficulty in breathing. Symptoms have progressively worsened over the past 3-4 days. Patient states it is difficult to get any production from her cough. There has been some minimal clear sputum. No fevers. Patient does have a history of similar symptoms previously associated with COPD. No chest pain. No leg pain or leg swelling. - Related Data Home Medications Medication Instructions Recorded Confirmed Levothyroxine Sodium [Synthroid] 50 mcg PO DAILY 04/01/14 06/02/18 Metoprolol Tartrate [Lopressor] 12.5 mg PO BID 04/01/14 06/02/18 Budesonide [Pulmicort] 0.5 mg INHALATION RT-BID 04/01/15 06/02/18 Donepezil [Aricept] 10 mg PO BID 04/01/15 06/02/18 Albuterol Nebulized [Ventolin 2.5 mg INHALATION RT-Q4H PRN 05/25/17 06/02/18 Nebulized] levETIRAcetam [Keppra] 750 mg PO BID 09/16/17 06/02/18 guaiFENesin 400 mg PO Q4H PRN 11/23/17 06/02/18 Acetaminophen [Tylenol Arthritis] 650 mg PO Q12HR 06/02/18 06/02/18 Lutein 10 mg PO DAILY 06/02/18 06/02/18 Lititz-3 Fatty Acids/Fish Oil [Fish 1,000 mg PO DAILY 06/02/18 06/02/18 Oil 1,000 mg Softgel] Vitamin B Complex 1 cap PO DAILY 06/02/18 06/02/18 Allergies Allergy/AdvReac Type Severity Reaction Status Date / Time alprazolam [From Xanax] AdvReac Hallucinati Verified 06/02/18 12:37 ons lorazepam [From Ativan] AdvReac Hallucinati Verified 06/02/18 12:37 ons phenytoin sodium AdvReac Hallucinati Verified 06/02/18 12:37 [From Dilantin] ons Review of Systems ROS Statement: Those systems with pertinent positive or pertinent negative responses have been documented in the HPI. ROS Other: All systems not noted in ROS Statement are negative. Constitutional: Denies: fever, chills Eyes: Denies: eye pain ENT: Denies: ear pain Respiratory: Reports: cough, dyspnea Cardiovascular: Denies: chest pain Endocrine: Reports: fatigue Gastrointestinal: Denies: abdominal pain Genitourinary: Denies: dysuria Musculoskeletal: Denies: back pain Skin: Denies: rash Neurological: Denies: weakness Past Medical History Past Medical History: Heart Failure, COPD, CVA/TIA, Dementia, GERD/Reflux, Hearing Disorder / Deafness, Hyperlipidemia, Hypertension, Myocardial Infarction ([place]), Osteoarthritis ([place]), Pneumonia, Seizure Disorder, Sleep Apnea/ CPAP/BIPAP, Thyroid Disorder Additional Past Medical History / Comment(s): COPD, chronic hypoxic respiratory failure, impaired hearing, impaired vision, obstructive sleep apnea but she does not utilize any CPAP therapy, remote history of C. diff colitis, hypothyroidism, previous TIA, dementia, acid reflux, coronary artery disease with previous myocardial infarction, seizure disorder, calcified gallstone Last Myocardial Infarction Date:: UNK History of Any Multi-Drug Resistant Organisms: None Reported Past Surgical History: Back Surgery Additional Past Surgical History / Comment(s): Carpal tunnel release involving the right hand, back surgery involving laminectomy and fusion. She has had also previous lumpectomy Past Anesthesia/Blood Transfusion Reactions: No Reported Reaction Past Psychological History: Anxiety Smoking Status: Never smoker Past Alcohol Use History: None Reported Past Drug Use History: None Reported - Past Family History Father Additional Family Medical History / Comment(s): AT AGE 89 Mother Family Medical History: Hypertension Additional Family Medical History / Comment(s): AT AGE 47. HAD HX RHEUMATIC FEVER General Exam Limitations: physical limitation General appearance: alert Head exam: Present: atraumatic Eye exam: Present: normal appearance, PERRL ENT exam: Present: normal oropharynx Neck exam: Present: normal inspection Respiratory exam: Present: respiratory distress, wheezes, accessory muscle use, decreased breath sounds Cardiovascular Exam: Present: regular rate, normal rhythm GI/Abdominal exam: Present: soft. Absent: tenderness Extremities exam: Present: normal inspection. Absent: pedal edema, calf tenderness Neurological exam: Present: alert Psychiatric exam: Present: normal affect, normal mood Skin exam: Present: normal color Course Vital Signs 06/02/18 06/02/18 06/02/18 11:42 12:07 12:18 Temperature 97.8 F Pulse Rate 84 88 88 Respiratory 20 Rate Blood Pressure 156/75 O2 Sat by Pulse 92 L Oximetry 06/02/18 06/02/18 06/02/18 12:39 12:43 13:00 Temperature Pulse Rate 92 Respiratory 22 Rate Blood Pressure 179/102 O2 Sat by Pulse 96 Oximetry 06/02/18 13:30 Temperature Pulse Rate 72 Respiratory Rate Blood Pressure 171/61 O2 Sat by Pulse 100 Oximetry EKG Findings - EKG Comments: EKG Findings:: Normal sinus rhythm 73. NV 150. QRS 86. QT 370. QTc 407. Normal axis. Normal QRS. No acute ST change. Medical Decision Making - Medical Decision Making Patient reevaluated and only somewhat improved. Patient updated on results and plan. Dr. Deon cantu for admission. - Lab Data Result diagrams: 06/02/18 12:15 06/02/18 12:15 Lab Results 06/02/18 06/02/18 Range/Units 12:15 12:15 WBC 9.9 (3.8-10.6) k/uL RBC 3.74 L (3.80-5.40) m/uL Hgb 11.4 (11.4-16.0) gm/dL Hct 37.0 (34.0-46.0) % MCV 98.8 (80.0-100.0) fL MCH 30.5 (25.0-35.0) pg MCHC 30.9 L (31.0-37.0) g/dL RDW 13.5 (11.5-15.5) % Plt Count 271 (150-450) k/uL Neutrophils % 72 % Lymphocytes % 16 % Monocytes % 5 % Eosinophils % 5 % Basophils % 0 % Neutrophils # 7.2 (1.3-7.7) k/uL Lymphocytes # 1.6 (1.0-4.8) k/uL Monocytes # 0.5 (0-1.0) k/uL Eosinophils # 0.5 (0-0.7) k/uL Basophils # 0.0 (0-0.2) k/uL Hypochromasia Slight Sodium 141 (137-145) mmol/L Potassium 4.7 (3.5-5.1) mmol/L Chloride 109 H (98-107) mmol/L Carbon Dioxide 26 (22-30) mmol/L Anion Gap 6 mmol/L BUN 26 H (7-17) mg/dL Creatinine 0.93 (0.52-1.04) mg/dL Est GFR (CKD-EPI)AfAm 66 (>60 ml/min/1.73 sqM) Est GFR (CKD-EPI)NonAf 57 (>60 ml/min/1.73 sqM) Glucose 111 H (74-99) mg/dL Calcium 10.2 (8.4-10.2) mg/dL Magnesium 2.0 (1.6-2.3) mg/dL Total Bilirubin 0.2 (0.2-1.3) mg/dL AST 27 (14-36) U/L ALT 20 (9-52) U/L Alkaline Phosphatase 163 H (38-126) U/L Total Protein 7.5 (6.3-8.2) g/dL Albumin 3.7 (3.5-5.0) g/dL - Radiology Data Radiology results: image reviewed (Chest x-ray shows no acute process. Chronic changes.) Disposition Clinical Impression: Acute exacerbation of chronic obstructive airways disease Disposition: ADMITTED IP TO THIS HOSP Is patient prescribed a controlled substance at d/c from ED?: No Referrals: Kilo De La Paz MD [Primary Care Provider] - 1-2 days Decision Time: 13:44
[2018-06-02 12:33] LABS: Basophils % (A) 0 %; Eosinophils # (A) 0.5 k/uL (0-0.7); Eosinophils % (A) 5 %; HGB 11.4 gm/dL (11.4-16.0); Hypochromasia Slight; Lymphocytes # (A) 1.6 k/uL (1.0-4.8); Lymphocytes % (A) 16 %; MCH 30.5 pg (25.0-35.0); MCHC 30.9 g/dL (31.0-37.0); MCV 98.8 fL (80.0-100.0); Mean Platelet Volume 7.1; Monocytes # (A) 0.5 k/uL (0-1.0); Monocytes % (A) 5 %; Neutrophils # (A) 7.2 k/uL (1.3-7.7); Neutrophils % (A) 72 %; Platelet Count 271 k/uL (150-450); RBC 3.74 m/uL (3.80-5.40); RDW 13.5 % (11.5-15.5); WBC 9.9 k/uL (3.8-10.6)
[2018-06-02 13:01] LABS: Albumin 3.7 g/dL (3.5-5.0); Calcium 10.2 mg/dL (8.4-10.2); Total Bilirubin 0.2 mg/dL (0.2-1.3); Total Protein 7.5 g/dL (6.3-8.2)
[2018-06-02 13:04] LABS: Potassium 4.7 mmol/L (3.5-5.1)
--- NOTE | 2018-06-02 13:11 | XR ---
EXAMINATION TYPE: XR chest 2V DATE OF EXAM: 06/02/2018 COMPARISON: CXR from 11/23/2017. HISTORY: COPD,DE, Pneumonia, and difficulty in breathing. TECHNIQUE: Frontal and lateral views of the chest are obtained. FINDINGS: There is chronic parenchymal change without focal air space opacity, pleural effusion, or pneumothorax seen. The cardiac silhouette size is mildly enlarged with atherosclerotic change in th oracic aorta. The osseous structures are demineralized. Calcified Capsular hypertrophy right AC ashely nt is redemonstrated. IMPRESSION: Chronic changes without acute pulmonary process.
[2018-06-02] MEDS: IPRATROPIUM-ALBUTEROL 3 ML NEB INHALATION SCH ×2 (14:21→21:08)
[2018-06-02 15:09] VITALS: BMI 26.6
[2018-06-02] MEDS: IPRATROPIUM-ALBUTEROL 3 ML NEB INHALATION PRN (17:15)
[2018-06-02] MEDS: methylPREDNISolone SOD SUCCI 125 MG/2 ML VIAL IV SCH ×2 (17:31→23:55)
[2018-06-02] MEDS ORDERED: ALBUTEROL NEBULIZED 2.5 MG/3 ML INHALATION PRN (21:42)
[2018-06-02] MEDS ORDERED: guaiFENesin SYRUP 100MG/5ML 200 MG/10 ML CUP PO PRN (21:42)
[2018-06-02] MEDS ORDERED: ACETAMINOPHEN TAB 325 MG TAB PO STA (22:23)
[2018-06-02] MEDS: DONEPEZIL 10 MG TAB PO SCH (22:30)
[2018-06-02] MEDS: METOPROLOL TARTRATE 12.5 MG TAB PO SCH (22:30)
[2018-06-02] MEDS: BUDESONIDE 0.5 MG/2 ML NEBU INHALATION SCH (23:52)
[2018-06-03] MEDS: IPRATROPIUM-ALBUTEROL 3 ML NEB INHALATION PRN (01:26)
[2018-06-03] MEDS: methylPREDNISolone SOD SUCCI 125 MG/2 ML VIAL IV SCH ×3 (05:52→18:08)
[2018-06-03] MEDS: LEVOTHYROXINE 50 MCG TAB PO SCH (05:52)
[2018-06-03] MEDS: DONEPEZIL 10 MG TAB PO SCH ×2 (08:01→22:36)
[2018-06-03] MEDS: METOPROLOL TARTRATE 12.5 MG TAB PO SCH ×2 (08:01→22:35)
[2018-06-03] MEDS: ACETAMINOPHEN TAB 325 MG TAB PO SCH ×2 (08:02→22:36)
[2018-06-03] MEDS ORDERED: NON-FORMULARY DRUG (Vitamin B Complex [Vitamin B Complex] 1 CAP) PO SCH (09:00)
[2018-06-03] MEDS ORDERED: NON-FORMULARY DRUG (Lutein [Lutein] 10 MG) PO SCH (09:00)
[2018-06-03] MEDS: IPRATROPIUM-ALBUTEROL 3 ML NEB INHALATION SCH ×5 (09:55→23:36)
[2018-06-03] MEDS: BUDESONIDE 0.5 MG/2 ML NEBU INHALATION SCH (09:55)
--- NOTE | 2018-06-03 16:02 | P.CNPUL ---
History of Present Illness Consult date: 06/03/18 Requesting physician: Torres Chavarria Reason for consult: dyspnea Chief complaint: Shortness of breath History of present illness: Is a very pleasant 82-year-old female patient who follows with Dr. Watkins as her primary care physician. She has a history of hypothyroidism, hypertension, dementia, hearing disorder, hyperlipidemia, hypertension, osteoarthritis, obstructive sleep apnea utilizing CPAP in the outpatient setting. She also has a history of chronic obstructive pulmonary disease and follows in our office for the same and she presented to the emergency room yesterday with a 3 to four- day history of increasing shortness of breath. Minimal productive sputum. No fever chills or night sweats. Chest x-ray shows chronic changes but no acute pulmonary process. White count 9.9. Hemoglobin 11.4. Creatinine 0.93. He is seen today in consultation on the regular medical floor. She is awake and alert in no acute distress. She is currently afebrile. Hemodynamically stable. Maintaining O2 saturation in the upper 90s on 3 L/m per nasal cannula. She's been initiated on DuoNeb inhalations, Pulmicort inhalations, IV Solu- Medrol. Review of Systems 14 point review of system was conducted. All negative other than as mentioned in HPI. Past Medical History Past Medical History: Heart Failure, COPD, CVA/TIA, Dementia, GERD/Reflux, Hearing Disorder / Deafness, Hyperlipidemia, Hypertension, Myocardial Infarction ([place]), Osteoarthritis (OA), Pneumonia, Seizure Disorder, Sleep Apnea/ CPAP/BIPAP, Thyroid Disorder Additional Past Medical History / Comment(s): COPD, chronic hypoxic respiratory failure, impaired hearing, impaired vision, obstructive sleep apnea but she does not utilize any CPAP therapy, remote history of C. diff colitis, hypothyroidism, previous TIA, dementia, acid reflux, coronary artery disease with previous myocardial infarction, seizure disorder, calcified gallstone Last Myocardial Infarction Date:: UNK History of Any Multi-Drug Resistant Organisms: None Reported Past Surgical History: Back Surgery Additional Past Surgical History / Comment(s): Carpal tunnel release involving the right hand, back surgery involving laminectomy and fusion. She has had also previous lumpectomy Past Anesthesia/Blood Transfusion Reactions: No Reported Reaction Past Psychological History: Anxiety Additional Psychological History / Comment(s): lives in own home with her daughter dipesh, uses a 4 wheeled walker w/seat Smoking Status: Never smoker Past Alcohol Use History: None Reported Additional Past Alcohol Use History / Comment(s): no etoh no since 2003 Past Drug Use History: None Reported - Past Family History Father Additional Family Medical History / Comment(s): AT AGE 89 Mother Family Medical History: Hypertension Additional Family Medical History / Comment(s): AT AGE 47. HAD HX RHEUMATIC FEVER Medications and Allergies Home Medications Medication Instructions Recorded Confirmed Type Levothyroxine Sodium [Synthroid] 50 mcg PO DAILY 04/01/14 06/02/18 History Metoprolol Tartrate [Lopressor] 12.5 mg PO BID 04/01/14 06/02/18 History Budesonide [Pulmicort] 0.5 mg INHALATION RT-BID 04/01/15 06/02/18 History Donepezil [Aricept] 10 mg PO BID 04/01/15 06/02/18 History Albuterol Nebulized [Ventolin 2.5 mg INHALATION RT-Q4H PRN 05/25/17 06/02/18 History Nebulized] levETIRAcetam [Keppra] 750 mg PO BID 09/16/17 06/02/18 History guaiFENesin 400 mg PO Q4H PRN 11/23/17 06/02/18 History Acetaminophen [Tylenol Arthritis] 650 mg PO Q12HR 06/02/18 06/02/18 History Lutein 10 mg PO DAILY 06/02/18 06/02/18 History [place]-3 Fatty Acids/Fish Oil [Fish 1,000 mg PO DAILY 06/02/18 06/02/18 History Oil 1,000 mg Softgel] Vitamin B Complex 1 cap PO DAILY 06/02/18 06/02/18 History Allergies Allergy/AdvReac Type Severity Reaction Status Date / Time alprazolam [From Xanax] AdvReac Hallucinati Verified 06/02/18 12:37 ons lorazepam [From Ativan] AdvReac Hallucinati Verified 06/02/18 12:37 ons phenytoin sodium AdvReac Hallucinati Verified 06/02/18 12:37 [From Dilantin] ons Physical Exam Vitals: Vital Signs Temp Pulse Pulse Resp BP BP Pulse Ox 06/03/18 14:00 97.0 F L 69 20 143/65 97 06/03/18 13:42 76 06/03/18 13:26 80 06/03/18 08:00 20 06/03/18 06:39 98.8 F 76 20 160/73 97 06/03/18 06:09 84 06/03/18 05:47 80 06/03/18 01:40 88 06/03/18 01:26 84 95 06/02/18 23:00 98.2 F 92 20 163/79 90 L 06/02/18 21:23 84 06/02/18 21:11 80 06/02/18 17:27 76 06/02/18 17:18 80 Intake and Output 06/03/18 06/03/18 06/03/18 06:59 14:59 22:59 Intake Total 500 Balance 500 Intake: Oral 500 Other: # Voids 5 1 GENERAL EXAM: Alert, active, comfortable in no apparent distress. On 3 L nasal cannula. HEAD: Normocephalic. EYES: Normal reaction of pupils, equal size. NOSE: Clear with pink turbinates. THROAT: No erythema or exudates. NECK: No masses, no JVD. CHEST: No chest wall deformity. LUNGS: Equal air entry with no crackles, wheeze, rhonchi or dullness. Diminished. CVS: S1 and S2 normal with no audible murmur, regular rhythm. ABDOMEN: No hepatosplenomegaly, normal bowel sounds, no guarding or rigidity. SPINE: No scoliosis or deformity SKIN: No rashes CENTRAL NERVOUS SYSTEM: No focal deficits, tone is normal in all 4 extremities. EXTREMITIES: There is no peripheral edema. No clubbing, no cyanosis. Peripheral pulses are intact. Results - Laboratory Findings CBC and BMP: 06/02/18 12:15 06/02/18 12:15 Abnormal lab findings: Abnormal Labs 06/02/18 06/02/18 12:15 12:15 RBC 3.74 L MCHC 30.9 L Chloride 109 H BUN 26 H Glucose 111 H Alkaline Phosphatase 163 H - Diagnostic Findings Chest x-ray: image reviewed Assessment and Plan Assessment: Impression: #1 Acute exacerbation of chronic obstructive pulmonary disease. No clear evidence of pneumonia. #2 Hard of hearing. #3 Dementia. #4 History of CVA/TIA. #5 History of congestive heart failure. #6 Hyperlipidemia. #7 Hypertension. #8 History of myocardial infarction. #9 Osteoarthritis. #10 History of seizure disorder. #11 Obstructive sleep apnea, unsure of compliance in the outpatient setting. #12 Hypothyroidism. Plan: The patient was seen and evaluated by Dr. Dr. Kauffman. Chest x-ray and labs were reviewed. No clear evidence of pneumonia. We'll treat her for COPD exacerbation. Continue DuoNeb inhalations, add Pulmicort and Perforomist inhalations, continue IV Solu-Medrol. We will increase her activity as tolerated. We'll continue to follow make further recommendations based on her clinical status. I, the cosigning physician, performed a history & physical examination of the patient. Lungs sounds are clear. Diminished. Maintaining good O2 saturations in the 90s on 2 L/m per nasal cannula. I discussed the assessment and plan of care with my nurse practitioner, Mariama Harris. I attest to the above consultation as dictated by her. Time with Patient: Greater than 30
--- NOTE | 2018-06-03 19:18 | P.HPIM ---
History of Present Illness H&P Date: 06/03/18 Chief Complaint: Short of breath History of presenting complaint: This is a pleasant [address] hancock. Chronic stable medical conditions include GERD and dementia hyperlipidemia heart of forgetting hypertension seizure disorder sleep apnea hypothyroid and chronic hypoxic respiratory failure. Patient presents today with worsening cough and some phlegm, wheezing. She is not sure because of the sputum. No fever or chills. Just add rundown. Appetite is decreased. Patient's baseline been using a walker. Overall feeling tired and rundown. Admitted with COPD exacerbation. Started on bronchodilator steroids. Pulmonary was consulted. Review of systems: GEN.: Tired EYES: None HEENT: Decreased hearing NECK: None RESPIRATORY: As above CARDIOVASCULAR: None GASTROINTESTINAL: Reflux GENITOURINARY: None MUSCULOSKELETAL: Pain in the joints LYMPHATICS: None HEMATOLOGICAL: None PSYCHIATRY: Some anxiety, forgetfulness NEUROLOGICAL: None Past history: Stroke, dementia, GERD, hard of hearing, hyperlipidemia, hypertension, osteoarthritis, [place], seizure, obstructive sleep apnea, hypothyroid, chronic hypoxia respiratory failure. Social history: No smoking. No alcohol since 2003. His lives with the daughter Dipesh. Used to be a tobacco farmworker. Does use a 4 wheeled walker Family history: Hypertension Physical examination: VITAL SIGNS: 97.8, 84, 20, 156/75, 92% on 2 L GENERAL: Average built, laying in bed, tired appearing. EYES: Pupils equal. Conjunctiva normal. HEENT: External appearance of nose and ears normal, oral cavity grossly normal. NECK: JVD not raised; masses not palpable. HEART: First and second heart sounds are normal; no edema. LUNGS: Respiratory rate increased, decreased breath sounds with prolonged expiration and wheezing. ABDOMEN: Soft, nontender, liver spleen not palpable, no masses palpable. LYMPHATICS: No lymph nodes palpable in the axilla and neck. PSYCH: Patient is able to simple questions, mood affect a bit anxious appearingl. NEUROLOGICAL: Cranial nerves grossly intact; no facial asymmetry, power and sensation grossly intact MUSCULOSKELETAL: Evidence OA especially in the hands. Investigation: White count 9.9, hemoglobin 11.4, potassium 4.7, BUN 26, creatinine 0.93 Chest x-ray-film personally reviewed by me shows chronic changes compared to the previous film EKG-tracing personally reviewed by me shows normal sinus rhythm Assessment: . 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 Kauffman from pulmonary was consulted. Patient is put on IV Solu-Medrol. Put on bronchodilator . We will also add Mucinex. Add inhaled steroid steroids. Home medications are resumed. Care was discussed with the patient. Questions were answered. Past Medical History Past Medical History: Heart Failure, COPD, CVA/TIA, Dementia, GERD/Reflux, Hearing Disorder / Deafness, Hyperlipidemia, Hypertension, Myocardial Infarction ([place]), Osteoarthritis (OA), Pneumonia, Seizure Disorder, Sleep Apnea/ CPAP/BIPAP, Thyroid Disorder Additional Past Medical History / Comment(s): COPD, chronic hypoxic respiratory failure, impaired hearing, impaired vision, obstructive sleep apnea but she does not utilize any CPAP therapy, remote history of C. diff colitis, hypothyroidism, previous TIA, dementia, acid reflux, coronary artery disease with previous myocardial infarction, seizure disorder, calcified gallstone Last Myocardial Infarction Date:: UNK History of Any Multi-Drug Resistant Organisms: None Reported Past Surgical History: Back Surgery Additional Past Surgical History / Comment(s): Carpal tunnel release involving the right hand, back surgery involving laminectomy and fusion. She has had also previous lumpectomy Past Anesthesia/Blood Transfusion Reactions: No Reported Reaction Past Psychological History: Anxiety Additional Psychological History / Comment(s): lives in own home with her daughter dipesh, uses a 4 wheeled walker w/seat Smoking Status: Never smoker Past Alcohol Use History: None Reported Additional Past Alcohol Use History / Comment(s): no etoh no since 2003 Past Drug Use History: None Reported - Past Family History Father Additional Family Medical History / Comment(s): AT AGE 89 Mother Family Medical History: Hypertension Additional Family Medical History / Comment(s): AT AGE 47. HAD HX RHEUMATIC FEVER Medications and Allergies Home Medications Medication Instructions Recorded Confirmed Type Levothyroxine Sodium [Synthroid] 50 mcg PO DAILY 04/01/14 06/02/18 History Metoprolol Tartrate [Lopressor] 12.5 mg PO BID 04/01/14 06/02/18 History Budesonide [Pulmicort] 0.5 mg INHALATION RT-BID 04/01/15 06/02/18 History Donepezil [Aricept] 10 mg PO BID 04/01/15 06/02/18 History Albuterol Nebulized [Ventolin 2.5 mg INHALATION RT-Q4H PRN 05/25/17 06/02/18 History Nebulized] levETIRAcetam [Keppra] 750 mg PO BID 09/16/17 06/02/18 History guaiFENesin 400 mg PO Q4H PRN 11/23/17 06/02/18 History Acetaminophen [Tylenol Arthritis] 650 mg PO Q12HR 06/02/18 06/02/18 History Lutein 10 mg PO DAILY 06/02/18 06/02/18 History [place]-3 Fatty Acids/Fish Oil [Fish 1,000 mg PO DAILY 06/02/18 06/02/18 History Oil 1,000 mg Softgel] Vitamin B Complex 1 cap PO DAILY 06/02/18 06/02/18 History Allergies Allergy/AdvReac Type Severity Reaction Status Date / Time alprazolam [From Xanax] AdvReac Hallucinati Verified 06/02/18 12:37 ons lorazepam [From Ativan] AdvReac Hallucinati Verified 06/02/18 12:37 ons phenytoin sodium AdvReac Hallucinati Verified 06/02/18 12:37 [From Dilantin] ons Physical Exam Vitals: Vital Signs Temp Pulse Pulse Resp BP BP Pulse Ox 06/03/18 08:00 20 06/03/18 06:39 98.8 F 76 20 160/73 97 06/03/18 06:09 84 06/03/18 05:47 80 06/03/18 01:40 88 06/03/18 01:26 84 95 06/02/18 23:00 98.2 F 92 20 163/79 90 L 06/02/18 21:23 84 06/02/18 21:11 80 06/02/18 17:27 76 06/02/18 17:18 80 06/02/18 15:00 97.2 F L 89 18 143/67 93 L 06/02/18 14:47 97.8 F 82 22 162/75 99 06/02/18 14:33 82 06/02/18 14:30 82 162/75 99 06/02/18 14:23 80 06/02/18 14:00 88 133/68 99 06/02/18 13:30 72 171/61 100 06/02/18 13:00 179/102 96 06/02/18 12:43 22 06/02/18 12:39 92 06/02/18 12:18 88 06/02/18 12:07 88 06/02/18 11:42 97.8 F 84 20 156/75 92 L Intake and Output 06/02/18 06/03/18 06/03/18 22:59 06:59 14:59 Intake Total 500 500 Balance 500 500 Intake: Oral 500 500 Other: # Voids 2 5 Weight 66.224 kg Results CBC & Chem 7: 06/02/18 12:15 06/02/18 12:15 Labs: Abnormal Lab Results - Last 24 Hours (Table) 06/02/18 06/02/18 Range/Units 12:15 12:15 RBC 3.74 L (3.80-5.40) m/uL MCHC 30.9 L (31.0-37.0) g/dL Chloride 109 H (98-107) mmol/L BUN 26 H (7-17) mg/dL Glucose 111 H (74-99) mg/dL Alkaline Phosphatase 163 H (38-126) U/L Thrombosis Risk Factor Assmnt - Choose All That Apply Each Factor Represents 1 point: Abnormal pulmonary function (COPD) Each Risk Factor Represents 3 Points: Age 75 years or older Thrombosis Risk Factor Assessment Total Risk Factor Score: 4 Thrombosis Risk Factor Assessment Level: Moderate Risk
[2018-06-03] MEDS: BUDESONIDE 1 MG/2 ML NEBU INHALATION SCH (19:30)
[2018-06-03] MEDS: methylPREDNISolone SOD SUCCI 40 MG/ML 1 ML VIAL IV SCH (22:36)
[2018-06-03] MEDS: guaiFENesin 600 MG TABLET.ER PO SCH ×3 (22:36→23:35)
[2018-06-03 23:09] VITALS: RESP 18
[2018-06-04] MEDS: methylPREDNISolone SOD SUCCI 40 MG/ML 1 ML VIAL IV SCH ×3 (00:04→15:44)
[2018-06-04] MEDS: IPRATROPIUM-ALBUTEROL 3 ML NEB INHALATION SCH ×6 (03:16→23:18)
[2018-06-04] MEDS: LEVOTHYROXINE 50 MCG TAB PO SCH (06:27)
[2018-06-04] MEDS: METOPROLOL TARTRATE 12.5 MG TAB PO SCH ×2 (08:29→21:41)
[2018-06-04] MEDS: guaiFENesin 600 MG TABLET.ER PO SCH ×2 (08:29→21:41)
[2018-06-04] MEDS: ACETAMINOPHEN TAB 325 MG TAB PO SCH ×2 (08:30→21:42)
[2018-06-04] MEDS: DONEPEZIL 10 MG TAB PO SCH ×2 (08:30→21:41)
[2018-06-04] MEDS: BUDESONIDE 1 MG/2 ML NEBU INHALATION SCH ×2 (11:16→19:21)
--- NOTE | 2018-06-04 18:05 | PN ---
PROGRESS NOTE DATE OF SERVICE: 06/04/2018 This is an 82-year-old female well known to our service. She was admitted with a diagnosis of acute COPD exacerbation without any evidence of pneumonia. She has significant deafness, dementia, CVA, CHF, hyperlipidemia, hypertension, myocardial infarction, DJD, seizure disorder, sleep apnea, and hypothyroidism. The patient is doing better. Very difficult to evaluate because she is still hard of hearing. She does not appear to be in any kelly respiratory distress. Today, she was asking for aspirin because her legs ached. She is not complaining of any difficulty breathing, coughing, wheezing, phlegm production, etc. Current vital signs are reviewed. Temperature is 97.3, heart rate 82, respiratory rate 18, blood pressure 141/72, mean 95, room air saturation 96%. Appears in no acute distress. No respiratory distress. She does have a wet congested cough when she does cough. HEENT examination is grossly unremarkable. Currently not wearing any supplemental oxygen. Mucous membranes are dry. Neck is supple. Full range of motion. No adenopathy or thyromegaly. Neck veins are flat. Cardiovascular examination reveals regular rhythm and rate. S1, S2 normal. No S3, S4, or murmur. Lungs reveal a few scattered coarse rhonchi. Breath sounds are diminished throughout. There is prolongation on forced maneuver. No crackles. Some expiratory wheezes are appreciated. Abdomen is soft. Bowel sounds are heard. Extremities are intact. No cyanosis, clubbing, or edema. Skin without rash. Neurologic examination is difficult to assess. She does move all 4 extremities. Lab data is reviewed. Nothing new to report. Microbiologic data is unremarkable. MEDICATIONS: Reviewed. She is on DuoNeb, Pulmicort, Mucinex, Solu-Medrol. ASSESSMENT: 1. Acute exacerbation of chronic obstructive pulmonary disease, possibly complicated by bronchitis. 2. Deafness. 3. Dementia. 4. Cerebrovascular accident. 5. History of congestive heart failure. 6. Hyperlipidemia. 7. Hypertension. 8. History of myocardial infarction. 9. Osteoarthritis. 10.History of seizure disorder. 11.History of sleep apnea syndrome. 12.Hypothyroidism. PLAN: I will add an oral antibiotic to her regimen along with formoterol. Additional recommendations and suggestions are forthcoming. The patient looks to be relatively stable. We will continue to follow. She is difficult to assess because of her deafness. She still has quite a bit of bronchospasm noted on exam today. Prognosis is very guarded. MMODL / IJN: [id number] / SANA
[2018-06-04] MEDS: FORMOTEROL FUMARATE 20 MCG/2 ML NEBU INHALATION SCH (19:21)
--- NOTE | 2018-06-04 19:21 | PN ---
PROGRESS NOTE DATE OF SERVICE: 06/04/2018 PRESENTING COMPLAINT: Short of breath. INTERVAL HISTORY: Patient admitted with COPD exacerbation, acute tracheobronchitis. Still got a cough, congested, not able to expectorate much. Wheezing is present. Did tolerate some diet. Has been sitting up on bed. REVIEW OF SYSTEMS: Done for constitutional, cardiovascular, GI, pulmonary and findings as above. CURRENT MEDICATIONS: Reviewed that include bronchodilators, Zithromax, IV Solu-Medrol. PHYSICAL EXAMINATION: Temperature 97.7 pulse 77, respiratory rate 18, blood pressure 146/77, pulse ox 96% on 3 L. GENERAL APPEARANCE: Sitting up, tired. EYES: Pupils equal. Conjunctivae normal. NECK: JVD not raised. Mass not palpable. Respiratory effort increased. LUNGS: Decreased breath sounds. Some expiratory wheezing. CARDIOVASCULAR: First and second sounds. No edema. ABDOMEN: Soft, nontender. Liver and spleen not palpable. PSYCHIATRY: Answering questions. Mood and affect slightly anxious. INVESTIGATIONS: No blood work from today. ASSESSMENT: 1. Acute chronic obstructive pulmonary disease exacerbation secondary to acute tracheobronchitis. 2. 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 3. Gastroesophageal reflux disease. 4. Hard of hearing. 5. Essential hypertension. 6. Hyperlipidemia. 7. Primary osteoarthritis. 8. Chronic seizure disorder. 9. Hypothyroid. 10.Chronic hypoxic respiratory failure from underlying chronic obstructive pulmonary disease. 11.Obstructive sleep apnea, does not use CPAP. 12.Coronary artery disease, prior history of myocardial infarction. PLAN: Continue current medication and treatment plan including ( ), Solu-Medrol. Also on Mucinex. Probably needs to be in the hospital for at least another day. MMODL / IJN: [id number] /
[2018-06-05] MEDS: methylPREDNISolone SOD SUCCI 40 MG/ML 1 ML VIAL IV SCH ×3 (00:31→15:15)
[2018-06-05] MEDS: IPRATROPIUM-ALBUTEROL 3 ML NEB INHALATION SCH ×4 (03:49→15:10)
[2018-06-05] MEDS: LEVOTHYROXINE 50 MCG TAB PO SCH (06:24)
[2018-06-05] MEDS: METOPROLOL TARTRATE 12.5 MG TAB PO SCH (08:17)
[2018-06-05] MEDS: DONEPEZIL 10 MG TAB PO SCH (08:17)
[2018-06-05] MEDS: ACETAMINOPHEN TAB 325 MG TAB PO SCH (08:18)
[2018-06-05] MEDS: guaiFENesin 600 MG TABLET.ER PO SCH (08:18)
[2018-06-05] MEDS: FORMOTEROL FUMARATE 20 MCG/2 ML NEBU INHALATION SCH (08:38)
[2018-06-05] MEDS: BUDESONIDE 1 MG/2 ML NEBU INHALATION SCH (08:38)
[2018-06-05] MEDS ORDERED: AZITHROMYCIN 500 MG TAB PO SCH (09:00)
--- NOTE | 2018-06-05 11:57 | PN ---
PROGRESS NOTE DATE OF SERVICE: 06/05/2018 82-year-old female well known to our service. She was admitted with diagnosis of COPD exacerbation without evidence of pneumonia. I believe the patient's pretty much at baseline. She has history of significant deafness, dementia, CVA, CHF, hyperlipidemia, hypertension, myocardial infarction, DJD, seizure disorder, sleep apnea, and hypothyroidism. The patient is doing much better. Again, she is pretty much at baseline. She is never clear when you auscultate her. She always complains of shortness of breath. Current vital signs are reviewed. Her temperature is 97.7, heart rate 82, respiratory rate 18, blood pressure 130/70, mean 93 L saturation 97%. Appears in no acute distress. HEENT examination is grossly unremarkable. Mucous membranes are moist. Nasal O2 in place. Neck is supple. Full range of motion. No adenopathy or thyromegaly. Neck veins are flat. Cardiovascular examination reveals distant heart sounds. Heart rate in mid 70s. S1, S2 normal. Lungs reveal coarse inspiratory and expiratory rhonchi and wheezes. Breath sounds are diminished. Slight prolongation. No crackles. Breath sounds equal bilaterally. I believe her lung sounds are pretty much at her baseline. Abdomen is soft. Bowel sounds are heard. No masses or tenderness. Extremities are intact. No cyanosis, clubbing, or edema. No new labs to report. Microbiologic studies are negative. No new chest x-rays to report. She is on all the appropriate medications including Solu-Medrol, updrafts, Zithromax, Pulmicort and formoterol. ASSESSMENT: 1. Chronic obstructive pulmonary disease exacerbation with mild purulent tracheobronchitis. 2. Deafness. 3. Dementia. 4. Cerebrovascular accident. 5. History of congestive heart failure. 6. Hyperlipidemia. 7. History of hypertension. 8. History of myocardial infarction. 9. Osteoarthritis. 10.History of seizure disorder. 11.History of sleep apnea syndrome. 12.Hypothyroidism. PLAN: Dated 06/05/2018. The patient in my opinion is pretty much at her baseline and could be discharged home. She should be discharged home on a prednisone taper and a short course of oral antibiotics. She should resume her normal breathing medications at home. I would be happy to see her in the office post discharge. No additional recommendations are made. We will follow as needed. Prognosis is very poor. MMODL / IJN: [id number] /
[2018-06-05 16:16] VITALS: BP 123/71; PULSE 83; TEMP 97.3
--- NOTE | 2018-06-06 07:34 | DS ---
DISCHARGE SUMMARY DATE OF ADMISSION: 06/02/2018 DATE OF DISCHARGE: 06/05/2018 FINAL DIAGNOSES: 1. Acute chronic obstructive pulmonary disease exacerbation secondary to acute tracheobronchitis. 2. 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 3. Gastroesophageal reflux disease. 4. Hard of hearing. 5. Essential hypertension. 6. Hyperlipidemia. 7. Primary osteoarthritis. 8. Chronic seizure disorder. 9. Hypothyroid. 10.Chronic hypoxic respiratory failure from underlying chronic obstructive pulmonary disease. 11.Obstructive sleep apnea does not use CPAP. 12.Coronary artery disease with prior history of myocardial infarction. HOSPITAL COURSE: This patient presented with COPD exacerbation, acute tracheobronchitis. Tracheobronchitis treated with bronchodilators, steroids and Zithromax. Doing better at the time of discharge. Patient does have a chronic cough and chronic congestion. Tolerating a diet. Overall feeling better. PHYSICAL EXAMINATION: Temperature 97.3, pulse 83, respiratory 18, blood pressure 120/71, pulse ox 96% on 3 L. Lungs decreased breath sounds. Occasional wheezing. Psych: Able answer simple questions. INVESTIGATIONS: BUN 26, creatinine 0.93, potassium 4.7. CONSULTATION: Dr. Kauffman from Pulmonary. DISCHARGE MEDICATIONS: 1. Synthroid 50 mcg a day. 2. Lopressor 12.5 p.o. b.i.d. 3. Pulmicort 0.5 mg b.i.d. 4. Aricept 10 mg b.i.d. 5. Ventolin 2.5 q.4 p.r.n. 6. Keppra 750 mg b.i.d. 7. Tylenol Arthritis 650 mg q.12. 8. Lutein 10 mg p.o. daily. 9. Fish oil 1000 mg p.o. daily. 10.Vitamin B complex 1 capsule p.o. daily. 11.Zithromax 100 mg p.o. daily for 3 tablets. 12.DuoNeb q.i.d. 13.Mucinex 1200 mg p.o. q.12. 14.Prednisone taper. FOLLOWUP: Follow up with Dr. De La Paz in [address] De La Paz. MMODL / IJN: [id number] /
== END 2018-06-05 18:12 | disposition home health service (06) | DRG 191 ==
LOC: EC 11:20 → 4MS4W 13:45 → OBSVTOIN 06-04 16:08
PROVIDERS: ADMIT Hospitalist; ATTEND Hospitalist
DX: J44.0 Chronic obstructive pulmonary disease with (acute) lower respiratory infection (principal); J96.11 Chronic respiratory failure with hypoxia; J44.1 Chronic obstructive pulmonary disease with (acute) exacerbation; J20.9 Acute bronchitis, unspecified; E03.9 Hypothyroidism, unspecified; E78.5 Hyperlipidemia, unspecified; F02.80 Dementia in other diseases classified elsewhere, unspecified severity, without behavioral disturbance, psychotic disturbance, mood disturbance, and anxiety; F41.9 Anxiety disorder, unspecified; G30.1 Alzheimer's disease with late onset; G40.909 Epilepsy, unspecified, not intractable, without status epilepticus; G47.33 Obstructive sleep apnea (adult) (pediatric); H54.7 Unspecified visual loss; H91.90 Unspecified hearing loss, unspecified ear; I11.0 Hypertensive heart disease with heart failure; I25.10 Atherosclerotic heart disease of native coronary artery without angina pectoris; I25.2 Old myocardial infarction; I50.9 Heart failure, unspecified; K21.9 Gastro-esophageal reflux disease without esophagitis; M19.91 Primary osteoarthritis, unspecified site; Z79.890 Hormone replacement therapy; Z79.899 Other long term (current) drug therapy; Z82.49 Family history of ischemic heart disease and other diseases of the circulatory system; Z86.73 Personal history of transient ischemic attack (TIA), and cerebral infarction without residual deficits; Z88.8 Allergy status to other drugs, medicaments and biological substances
CPT/HCPCS: 36415; 71046; 80053; 83735; 85025; 93005; 94640; 94760; 96361; 96374; 99285

== ENCOUNTER 2018-06-14 19:19 | Inpatient (IN) | payer MEDICARE ==
[2018-06-14] MEDS ORDERED: ALBUTEROL NEBULIZED 2.5 MG/3 ML INHALATION STA (19:33)
[2018-06-14] MEDS ORDERED: methylPREDNISolone SOD SUCCI 125 MG/2 ML VIAL IV STA (19:33)
[2018-06-14] MEDS ORDERED: IPRATROPIUM 0.5 MG/2.5 ML NEBU INHALATION STA (19:33)
--- NOTE | 2018-06-14 19:37 | ED ---
General Adult HPI - General Chief complaint: Shortness of Breath Stated complaint: SOB/Congestion Time Seen by Provider: 06/14/18 19:20 Source: patient, RN notes reviewed Mode of arrival: ambulatory Limitations: no limitations - History of Present Illness Initial comments: This is an 82-year-old female who presents emergency Department with a past medical history significant for COPD. Patient was in the hospital for a couple weeks according to family was discharged June 06. Family states ever since then she became progressively worse to the point where tonight she can barely move around at all without be extreme short of breath. Patient denies any history of any heart disease patient denies any pulmonary edema history. Patient denies any recent fever chills or cough. Patient denies any abdominal pain she denies nausea vomiting diarrhea. Patient denies any lightheadedness dizziness or near syncopal episode. Patient denies any edema to the legs. - Related Data Home Medications Medication Instructions Recorded Confirmed Levothyroxine Sodium [Synthroid] 50 mcg PO DAILY 04/01/14 06/14/18 Metoprolol Tartrate [Lopressor] 12.5 mg PO BID 04/01/14 06/14/18 Budesonide [Pulmicort] 0.5 mg INHALATION RT-BID 04/01/15 06/14/18 Donepezil [Aricept] 10 mg PO BID 04/01/15 06/14/18 Albuterol Nebulized [Ventolin 2.5 mg INHALATION RT-Q4H PRN 05/25/17 06/14/18 Nebulized] levETIRAcetam [Keppra] 750 mg PO BID 09/16/17 06/14/18 Acetaminophen [Tylenol Arthritis] 650 mg PO Q12HR 06/02/18 06/14/18 Lutein 10 mg PO DAILY 06/02/18 06/14/18 Bronson-3 Fatty Acids/Fish Oil [Fish 1,000 mg PO DAILY 06/02/18 06/14/18 Oil 1,000 mg Softgel] Vitamin B Complex 1 cap PO DAILY 06/02/18 06/14/18 guaiFENesin [Mucinex] 600 mg PO Q46H 06/14/18 06/14/18 Previous Rx's Medication Instructions Recorded Ipratropium-Albuterol Nebulize 3 ml INHALATION QID #120 ampul.neb 06/05/18 [Duoneb 0.5 mg-3 mg/3 ml Soln] predniSONE 10 mg PO DAILY #30 tab 06/05/18 Allergies Allergy/AdvReac Type Severity Reaction Status Date / Time alprazolam [From Xanax] AdvReac Hallucinati Verified 06/14/18 20:02 ons lorazepam [From Ativan] AdvReac Hallucinati Verified 06/14/18 20:02 ons phenytoin sodium AdvReac Hallucinati Verified 06/14/18 20:02 [From Dilantin] ons Review of Systems ROS Statement: Those systems with pertinent positive or pertinent negative responses have been documented in the HPI. ROS Other: All systems not noted in ROS Statement are negative. Past Medical History Past Medical History: Heart Failure, COPD, CVA/TIA, Dementia, GERD/Reflux, Hearing Disorder / Deafness, Hyperlipidemia, Hypertension, Myocardial Infarction (CA), Osteoarthritis (OA), Pneumonia, Seizure Disorder, Sleep Apnea/ CPAP/BIPAP, Thyroid Disorder Additional Past Medical History / Comment(s): COPD, chronic hypoxic respiratory failure, impaired hearing, impaired vision, obstructive sleep apnea but she does not utilize any CPAP therapy, remote history of C. diff colitis, hypothyroidism, previous TIA, dementia, acid reflux, coronary artery disease with previous myocardial infarction, seizure disorder, calcified gallstone Last Myocardial Infarction Date:: UNK History of Any Multi-Drug Resistant Organisms: None Reported Past Surgical History: Back Surgery Additional Past Surgical History / Comment(s): Carpal tunnel release involving the right hand, back surgery involving laminectomy and fusion. She has had also previous lumpectomy Past Anesthesia/Blood Transfusion Reactions: No Reported Reaction Past Psychological History: Anxiety Smoking Status: Never smoker Past Alcohol Use History: None Reported Past Drug Use History: None Reported - Past Family History Father Additional Family Medical History / Comment(s): AT AGE 89 Mother Family Medical History: Hypertension Additional Family Medical History / Comment(s): AT AGE 47. HAD HX RHEUMATIC FEVER General Exam - General Exam Comments Initial Comments: GENERAL: Patient is well-developed and well-nourished. Patient is nontoxic and well- hydrated and is in mild distress. ENT: Neck is soft and supple. No significant lymphadenopathy is noted. Oropharynx is clear. Moist mucous membranes. Neck has full range of motion without eliciting any pain. EYES: The sclera were anicteric and conjunctiva were pink and moist. Extraocular movements were intact and pupils were equal round and reactive to light. Eyelids were unremarkable. PULMONARY: Patient is wheezing diffusely and has rhonchi bilaterally CARDIOVASCULAR: There is a regular rate and rhythm without any murmurs gallops or rubs. ABDOMEN: Soft and nontender with normal bowel sounds. SKIN: Skin is clear with no lesions or rashes and otherwise unremarkable. NEUROLOGIC: Patient is alert and oriented x3. Cranial nerves II through XII are grossly intact. Motor and sensory are also intact. Normal speech, volume and content. Symmetrical smile. MUSCULOSKELETAL: Normal extremities with adequate strength and full range of motion. No lower extremity swelling or edema. No calf tenderness. LYMPHATICS: No significant lymphadenopathy is noted PSYCHIATRIC: Normal psychiatric evaluation. Limitations: no limitations Course Vital Signs 06/14/18 06/14/18 06/14/18 19:20 19:34 19:45 Temperature 97.3 F L Pulse Rate 104 H 80 75 Respiratory 24 24 28 H Rate Blood Pressure 154/81 155/72 O2 Sat by Pulse 94 L 100 Oximetry 06/14/18 06/14/18 20:07 20:35 Temperature Pulse Rate 82 Respiratory 24 Rate Blood Pressure O2 Sat by Pulse Oximetry Medical Decision Making - Medical Decision Making EKG shows normal sinus rhythm at 73 bpm PA interval is 158 QRS is 78 QT interval 378 QTC is 416. Poor quality EKG but no obvious ST segment elevations are noted. Chest x-ray shows mild pulmonary edema Spoke with Dr. Alvarez he agreed to admit the patient admitted the patient wrote admitting orders - Lab Data Result diagrams: 06/14/18 19:50 06/14/18 19:50 Lab Results 06/14/18 06/14/18 06/14/18 Range/Units 19:50 19:50 19:50 WBC 11.6 H (3.8-10.6) k/uL RBC 3.94 (3.80-5.40) m/uL Hgb 12.1 (11.4-16.0) gm/dL Hct 38.6 (34.0-46.0) % MCV 98.1 (80.0-100.0) fL MCH 30.7 (25.0-35.0) pg MCHC 31.3 (31.0-37.0) g/dL RDW 13.5 (11.5-15.5) % Plt Count 208 (150-450) k/uL Neutrophils % 85 % Lymphocytes % 9 % Monocytes % 5 % Eosinophils % 1 % Basophils % 0 % Neutrophils # 9.9 H (1.3-7.7) k/uL Lymphocytes # 1.0 (1.0-4.8) k/uL Monocytes # 0.6 (0-1.0) k/uL Eosinophils # 0.1 (0-0.7) k/uL Basophils # 0.0 (0-0.2) k/uL Hypochromasia Slight PT (9.0-12.0) sec INR (<1.2) APTT (22.0-30.0) sec Sodium 138 (137-145) mmol/L Potassium 5.5 H (3.5-5.1) mmol/L Chloride 103 (98-107) mmol/L Carbon Dioxide 29 (22-30) mmol/L Anion Gap 6 mmol/L BUN 25 H (7-17) mg/dL Creatinine 0.82 (0.52-1.04) mg/dL Est GFR (CKD-EPI)AfAm 77 (>60 ml/min/1.73 sqM) Est GFR (CKD-EPI)NonAf 66 (>60 ml/min/1.73 sqM) Glucose 120 H (74-99) mg/dL Plasma Lactic Acid Juanito (0.7-2.0) mmol/L Calcium 9.9 (8.4-10.2) mg/dL Magnesium 2.1 (1.6-2.3) mg/dL Total Bilirubin 0.4 (0.2-1.3) mg/dL AST 28 (14-36) U/L ALT 28 (9-52) U/L Alkaline Phosphatase 132 H (38-126) U/L Total Creatine Kinase 23 L (30-135) U/L CK-MB (CK-2) 2.5 H (0.0-2.4) ng/mL CK-MB (CK-2) Rel Index 10.9 Troponin I <0.012 (0.000-0.034) ng/mL NT-Pro-B Natriuret Pep pg/mL Total Protein 6.9 (6.3-8.2) g/dL Albumin 3.7 (3.5-5.0) g/dL 01/07/0206/14/18 06/14/18 Range/Units 19:50 19:50 19:50 WBC (3.8-10.6) k/uL RBC (3.80-5.40) m/uL Hgb (11.4-16.0) gm/dL Hct (34.0-46.0) % MCV (80.0-100.0) fL MCH (25.0-35.0) pg MCHC (31.0-37.0) g/dL RDW (11.5-15.5) % Plt Count (150-450) k/uL Neutrophils % % Lymphocytes % % Monocytes % % Eosinophils % % Basophils % % Neutrophils # (1.3-7.7) k/uL Lymphocytes # (1.0-4.8) k/uL Monocytes # (0-1.0) k/uL Eosinophils # (0-0.7) k/uL Basophils # (0-0.2) k/uL Hypochromasia PT 9.7 (9.0-12.0) sec INR 0.9 (<1.2) APTT 18.9 L (22.0-30.0) sec Sodium (137-145) mmol/L Potassium (3.5-5.1) mmol/L Chloride (98-107) mmol/L Carbon Dioxide (22-30) mmol/L Anion Gap mmol/L BUN (7-17) mg/dL Creatinine (0.52-1.04) mg/dL Est GFR (CKD-EPI)AfAm (>60 ml/min/1.73 sqM) Est GFR (CKD-EPI)NonAf (>60 ml/min/1.73 sqM) Glucose (74-99) mg/dL Plasma Lactic Acid Juanito 1.3 (0.7-2.0) mmol/L Calcium (8.4-10.2) mg/dL Magnesium (1.6-2.3) mg/dL Total Bilirubin (0.2-1.3) mg/dL AST (14-36) U/L ALT (9-52) U/L Alkaline Phosphatase (38-126) U/L Total Creatine Kinase (30-135) U/L CK-MB (CK-2) (0.0-2.4) ng/mL CK-MB (CK-2) Rel Index Troponin I (0.000-0.034) ng/mL NT-Pro-B Natriuret Pep 4290 pg/mL Total Protein (6.3-8.2) g/dL Albumin (3.5-5.0) g/dL Disposition Clinical Impression: COPD exacerbation, Acute pulmonary edema Disposition: ADMITTED IP TO THIS HOSP Referrals: Kilo De La Paz MD [Primary Care Provider] - 1-2 days Time of Disposition: 20:53
[2018-06-14 20:10] LABS: Basophils % (A) 0 %; Eosinophils # (A) 0.1 k/uL (0-0.7); Eosinophils % (A) 1 %; HCT 38.6 % (34.0-46.0); HGB 12.1 gm/dL (11.4-16.0); Hypochromasia Slight; Lymphocytes % (A) 9 %; MCH 30.7 pg (25.0-35.0); MCHC 31.3 g/dL (31.0-37.0); MCV 98.1 fL (80.0-100.0); Mean Platelet Volume 7.9; Monocytes # (A) 0.6 k/uL (0-1.0); Monocytes % (A) 5 %; Neutrophils # (A) 9.9 k/uL (1.3-7.7); Neutrophils % (A) 85 %; Platelet Count 208 k/uL (150-450); RBC 3.94 m/uL (3.80-5.40); RDW 13.5 % (11.5-15.5); WBC 11.6 k/uL (3.8-10.6)
[2018-06-14 20:20] LABS: Albumin 3.7 g/dL (3.5-5.0); Calcium 9.9 mg/dL (8.4-10.2); Magnesium 2.1 mg/dL (1.6-2.3); Potassium 5.5 mmol/L (3.5-5.1); Total Bilirubin 0.4 mg/dL (0.2-1.3); Total Protein 6.9 g/dL (6.3-8.2)
[2018-06-14 20:27] LABS: Creatine Kinase 23 U/L (30-135)
[2018-06-14 20:30] LABS: INR 0.9 (<1.2); Prothrombin Time 9.7 sec (9.0-12.0)
[2018-06-14 20:37] LABS: Partial Thromboplastin Time 18.9 sec (22.0-30.0)
[2018-06-14 20:40] LABS: Creatine Kinase MB 2.5 ng/mL (0.0-2.4); Troponin I <0.012 ng/mL (0.000-0.034)
[2018-06-14] MEDS ORDERED: FUROSEMIDE 10 MG/ML 4 ML VIAL IV ONE (20:48)
[2018-06-14] MEDS ORDERED: IPRATROPIUM-ALBUTEROL 3 ML NEB INHALATION PRN (20:53)
[2018-06-14] MEDS ORDERED: KETOROLAC 30 MG/ML 1 ML VIAL IVP STA (20:56)
--- NOTE | 2018-06-14 20:59 | XR ---
EXAMINATION TYPE: XR chest 2V DATE OF EXAM: 06/14/2018 COMPARISON: 06/02/2018 HISTORY: Wheezing TECHNIQUE: Frontal and lateral views of the chest are obtained. FINDINGS: There is no heart failure nor confluent pneumonic infiltrate. Costophrenic angles are aracelis r. There are chest leads. There is 25% anterior wedging of L1 vertebra that appears old. IMPRESSION: No active cardiopulmonary disease. No change.
[2018-06-15] MEDS: PIPERACILLIN-TAZOBACTAM 3.375 GM in SODIUM CHLORIDE 0.9% 100 ML IVPB SCH ×4 (01:28→23:50)
[2018-06-15] MEDS: FUROSEMIDE 10 MG/ML 4 ML VIAL IV SCH ×3 (02:50→21:10)
[2018-06-15] MEDS: methylPREDNISolone SOD SUCCI 125 MG/2 ML VIAL IV SCH ×5 (02:50→23:50)
[2018-06-15 04:39] LABS: Creatine Kinase <20 U/L (30-135)
[2018-06-15 04:52] LABS: Troponin I <0.012 ng/mL (0.000-0.034)
[2018-06-15] MEDS: PANTOPRAZOLE 40 MG TABLET PO SCH (06:26)
[2018-06-15 06:35] LABS: Glucose,Whole Blood 131 mg/dL (75-99)
[2018-06-15] MEDS: INSULIN ASPART 100 UNIT/ML 1 ML 10 ML VIAL SQ SCH ×4 (06:42→21:11)
[2018-06-15 06:48] LABS: Appearance,Urine Clear (Clear); Bilirubin,Urine Negative (Negative); Blood,Urine Negative (Negative); Color,Urine Light Yellow; Glucose,Urine (UA) Negative (Negative); Ketones,Urine Negative (Negative); Leukocyte Esterase,Urine Negative (Negative); Nitrite,Urine Negative (Negative); Protein,Urine Negative (Negative); Urobilinogen,Urine <2.0 mg/dL (<2.0)
[2018-06-15] MEDS: BUDESONIDE 0.5 MG/2 ML NEBU INHALATION SCH ×2 (06:59→20:39)
[2018-06-15] MEDS: IPRATROPIUM-ALBUTEROL 3 ML NEB INHALATION SCH ×4 (06:59→18:28)
--- NOTE | 2018-06-15 07:06 | HP ---
HISTORY AND PHYSICAL DATE OF SERVICE: 06/14/2018. CHIEF COMPLAINTS: Weakness and shortness of breath. HISTORY OF PRESENT ILLNESS: This 82-year-old woman with a past history of COPD, CHF, history of dementia, GERD, hypertension, hyperlipidemia, history of myocardial infarction, history of pneumonia, seizure disorder, sleep apnea, being followed by Dr. De La Paz in the outpatient setting, was getting progressively short of breath and weak and the patient taken to [facility]. The patient was suspected to have a combination of CHF and COPD acute exacerbation. Patient admitted for evaluation. BNP was elevated. Patient also had suspected pneumonia also. The patient is admitted with COPD exacerbation. The patient admitted to the hospital for further evaluation and treatment. Currently the patient is drowsy, unable to give any coherent history. Most of the history is taken from my discussion with staff as well as review of the chart at this time. PAST MEDICAL HISTORY: From the chart: History of CHF, COPD, CVA, TIA, dementia, GERD, hypertension, hyperlipidemia; history of myocardial infarction, DJD, pneumonia, seizure disorder. MEDICATIONS: Prior to admission include home medications are: 1. Prednisone 10 mg daily. 2. Keppra 750 mg p.o. b.i.d. 3. Mucinex 600 mg q.6h. 4. Vitamin B complex 1 p.o. daily. 5. Fish oil 1000 mg daily. 6. Lopressor 12.5 mg b.i.d. 7. Lutein. 8. Synthroid 50 mcg p.o. daily. 9. DuoNeb q.i.d. 10.Aricept 10 mg b.i.d. 11.Pulmicort 0.5 b.i.d. 12.Ventolin 2.5 p.r.n. 13.Tylenol 650 p.o. b.i.d. ALLERGIES: XANAX, ATIVAN and DILANTIN. Family history, social history and review of systems could not be taken because of the change in mental status. No history of any smoking or alcohol intake per chart. PHYSICAL EXAM: GENERAL: Patient is conscious. The patient is confused. VITAL SIGNS: Pulse 84. Blood pressure 147/86, respiratory 20, temperature normal, pulse ox 96% on 3 L. HEENT is conjunctivae normal. Oral mucosa moist. NECK is no jugular venous distention. No carotid bruit. No lymph node enlargement. CARDIOVASCULAR SYSTEM: S1, S2. RESPIRATION: Breath sounds diminished in the bases. Bilateral scattered rhonchi and crackles. ABDOMEN: Soft, nontender. No mass palpable. LEGS: No edema. No swelling. NERVOUS SYSTEM: Higher functions as mentioned earlier. Moves all 4 limbs. No focal motor or sensory deficits. LYMPHATICS: No lymph nodes palpable in the neck, axilla or groin. SKIN: No ulcer, rash, bleeding. JOINTS: No active deforming arthropathy. LABS: At this time shows labs are reviewed and shows: WBC 11.6, hemoglobin is 12.1, sodium 138, potassium 5.5, alkaline phosphatase is 132. CK-MB is 2.5. ASSESSMENT: 1. Chronic obstructive pulmonary disease exacerbation with acute bilateral pneumonia possibly gram-negative for evaluation. 2. Possible congestive heart failure acute exacerbation. 3. Hyperkalemia. 4. History of chronic obstructive pulmonary disease and congestive heart failure. 5. Cerebrovascular accident/transient ischemic attack. 6. Dementia. 7. Gastroesophageal reflux disease. 8. Hypertension. 9. Hyperlipidemia. 10.History of myocardial infarction. 11.History of degenerative joint disease. 12.History of pneumonia. 13.History of seizure disorder. 14.Sleep apnea. 15.History of change in mental status, acute on chronic metabolic encephalopathy. 16.History of sleep apnea. 17.Hypothyroidism. 18.History of chronic hypoxic respiratory failure. 19.Obstructive sleep apnea. 20.History of back surgery/degenerative joint disease. 21.History of anxiety. RECOMMENDATIONS AND DISCUSSION: In this 82-year-old woman who presented with multiple complex medical issues, we will monitor the patient closely, continue the current medications, management and symptomatic treatment. I recommend initiate broad-spectrum IV antibiotics. I would also recommend IV steroids as well as a intensive bronchodilators also. Also obtain Dr. Box consultation. The patient was given small dose of Lasix. Also, 2D echo was ordered. Cardiology evaluation also recommend. Overall prognosis guarded. I would also recommend PT/OT evaluation, possible ECF rehab if the patient does not regain strength. Otherwise, I would also recommend cultures also. See orders for details. Further recommendations to follow. A copy of dictating being forwarded to Dr. De La Paz who is the primary physician. MMODL / IJN: [id number] /
[2018-06-15] MEDS ORDERED: METOPROLOL TARTRATE 25 MG TAB PO SCH (09:00)
[2018-06-15] MEDS ORDERED: NON-FORMULARY DRUG (Vitamin B Complex [Vitamin B Complex] 1 CAP) PO SCH (09:00)
[2018-06-15] MEDS ORDERED: NON-FORMULARY DRUG (Omega-3 Fatty Acids/Fish Oil [Fish Oil 1,000 Mg Softgel] 1,000 MG) PO SCH (09:00)
[2018-06-15] MEDS ORDERED: NON-FORMULARY DRUG (Lutein [Lutein] 10 MG) PO SCH (09:00)
[2018-06-15] MEDS: DONEPEZIL 10 MG TAB PO SCH ×2 (09:45→21:10)
[2018-06-15] MEDS: LEVOTHYROXINE 50 MCG TAB PO SCH (09:45)
[2018-06-15] MEDS: HEPARIN SODIUM,PORCINE 5,000 UNIT/ML 1 ML VIAL SQ SCH ×2 (09:46→21:10)
--- NOTE | 2018-06-15 12:12 | ECHOF ---
Referral Reason:Shortness of breath MEASUREMENTS -------- HEIGHT: 157.5 cm WEIGHT: 86.2 kg BP: RVIDd: 2.7 cm (< 3.3) IVSd: 1.3 cm (0.6 - 1.1) LVIDd: 4.7 cm (3.9 - 5.3) LVPWd: 1.2 cm (0.6 - 1.1) IVSs: 1.5 cm LVIDs: 3.0 cm LVPWs: 1.7 cm LA Diam: 4.9 cm (2.7 - 3.8) LAESV Index (A-L): 59.22 ml/m Ao Diam: 2.3 cm (2.0 - 3.7) AV Cusp: 1.0 cm (1.5 - 2.6) LA Diam: 3.7 cm (2.7 - 3.8) MV EXCURSION: 12.495 mm (> 18.000) MV EF SLOPE: 39 mm/s (70 - 150) EPSS: 0.2 cm MV E Albert: 0.95 m/s MV DecT: 210 ms MV A Albert: 1.10 m/s MV E/A Ratio: 0.86 AV maxP.86 mmHg AV meanP.72 mmHg RAP: 5.00 mmHg RVSP: 32.66 mmHg FINDINGS -------- Undetermined rhythm. This was a technically adequate study. Pt. is combative The left ventricular size is normal. There is mild concentric left ventricular hypertrophy. Overa ll left ventricular systolic function is normal with, an EF between 55 - 60 %. The right ventricle is normal in size. The left atrium is markedly dilated. LA is severely dilated >40 ml/m2 The right atrial size is normal. There is mild aortic valve sclerosis. There is mild aortic stenosis present. Peak/mean gradient a cross the Aortic Valve is 23.86mmHg / 10.72mmHg. Mild mitral annular calcification present. [id number] mitral regurgitation is present. Mild tricuspid regurgitation present. There is no evidence of pulmonary hypertension. The right v entricular systolic pressure, as measured by Doppler, is 32.66mmHg. There is no pulmonic regurgitation present. The aortic root size is normal. Echo free space represents a pericardial fat pad. CONCLUSIONS -------- 1. This was a technically adequate study. 2. Pt. is combative 3. The left ventricular size is normal. 4. There is mild concentric left ventricular hypertrophy. 5. Overall left ventricular systolic function is normal with, an EF between 55 - 60 %. 6. The right ventricle is normal in size. 7. The left atrium is markedly dilated. 8. LA is severely dilated >40 ml/m2 9. The right atrial size is normal. 10. There is mild aortic valve sclerosis. 11. There is mild aortic stenosis present. 12. Peak/mean gradient across the Aortic Valve is 23.86mmHg / 10.72mmHg. 13. Mild mitral annular calcification present. 14. [id number] mitral regurgitation is present. 15. Mild tricuspid regurgitation present. 16. There is no evidence of pulmonary hypertension. 17. The right ventricular systolic pressure, as measured by Doppler, is 32.66mmHg. 18. There is no pulmonic regurgitation present. 19. The aortic root size is normal. 20. Echo free space represents a pericardial fat pad. COMM[employer]CIAL LENDING VICE PRESIDENT: Sirisha Victor RDCS
[2018-06-15 12:40] LABS: Creatine Kinase MB 1.7 ng/mL (0.0-2.4); Troponin I 0.013 ng/mL (0.000-0.034)
[2018-06-15 13:00] LABS: Glucose,Whole Blood 116 mg/dL (75-99)
[2018-06-15] MEDS: ACETAMINOPHEN TAB 325 MG TAB PO SCH ×2 (13:08→21:10)
[2018-06-15 13:28] LABS: Basophils % (A) 0 %; Eosinophils % (A) 0 %; HCT 33.4 % (34.0-46.0); HGB 10.1 gm/dL (11.4-16.0); Hypochromasia Marked; Lymphocytes # (A) 0.2 k/uL (1.0-4.8); Lymphocytes % (A) 2 %; MCH 30.6 pg (25.0-35.0); MCHC 30.3 g/dL (31.0-37.0); Macrocytosis Slight; Mean Platelet Volume 8.8; Monocytes # (A) 0.1 k/uL (0-1.0); Monocytes % (A) 2 %; Neutrophils # (A) 8.4 k/uL (1.3-7.7); Neutrophils % (A) 95 %; Platelet Count 213 k/uL (150-450); RBC 3.31 m/uL (3.80-5.40); RDW 13.7 % (11.5-15.5); WBC 8.8 k/uL (3.8-10.6)
[2018-06-15 13:31] LABS: Calcium 9.5 mg/dL (8.4-10.2); Potassium 4.8 mmol/L (3.5-5.1)
[2018-06-15 14:17] LABS: Hemoglobin A1C 5.7 % (4.0-6.0)
--- NOTE | 2018-06-15 14:24 | P.CNPUL ---
History of Present Illness Consult date: 06/15/18 Requesting physician: Anselmo Alvarez Reason for consult: dyspnea Chief complaint: Shortness of breath, dyspnea on exertion History of present illness: This is a very pleasant 82-year-old female patient who follows with Dr. De La Paz as her primary care physician. She has a history of hypothyroidism, dementia, hard of hearing, hyperlipidemia, hypertension, osteoarthritis, obstructive sleep apnea not utilizing CPAP in the outpatient setting, chronic obstructive pulmonary disease. She was last month with a COPD exacerbation. She presented here to the emergency room again yesterday with progressive shortness of breath. Her chest x-ray shows no active cardiopulmonary disease. No changes compared to previous on 06/02/2018. Echocardiogram reveals preserved left ventricular systolic function. White count 8.8. Hemoccult and 10.1. Creatinine 0.90. Troponins negative. She is currently maintaining good O2 saturations in the mid 90s on 3 L/m per nasal cannula. She's afebrile. She is seen in consultation in the emergency room. She is currently sitting up on the stretcher eating lunch. She is awake and alert in no acute distress. She has been initiated on DuoNeb inhalations, Pulmicort inhalations, IV Solu-Medrol and empiric antibiotics in the form of Zosyn. She is also been initiated on IV diuretics. Past Medical History Past Medical History: Heart Failure, COPD, CVA/TIA, Dementia, GERD/Reflux, Hearing Disorder / Deafness, Hyperlipidemia, Hypertension, Myocardial Infarction (MT), Osteoarthritis (OA), Pneumonia, Seizure Disorder, Sleep Apnea/ CPAP/BIPAP, Thyroid Disorder Additional Past Medical History / Comment(s): COPD, chronic hypoxic respiratory failure, impaired hearing, impaired vision, obstructive sleep apnea but she does not utilize any CPAP therapy, remote history of C. diff colitis, hypothyroidism, previous TIA, dementia, acid reflux, coronary artery disease with previous myocardial infarction, seizure disorder, calcified gallstone Last Myocardial Infarction Date:: UNK History of Any Multi-Drug Resistant Organisms: None Reported Past Surgical History: Back Surgery Additional Past Surgical History / Comment(s): Carpal tunnel release involving the right hand, back surgery involving laminectomy and fusion. She has had also previous lumpectomy Past Anesthesia/Blood Transfusion Reactions: No Reported Reaction Past Psychological History: Anxiety Additional Psychological History / Comment(s): lives in own home with her daughter dipesh, uses a 4 wheeled walker w/seat Smoking Status: Never smoker Past Alcohol Use History: None Reported Additional Past Alcohol Use History / Comment(s): no etoh no since 2003 Past Drug Use History: None Reported - Past Family History Father Additional Family Medical History / Comment(s): AT AGE 89 Mother Family Medical History: Hypertension Additional Family Medical History / Comment(s): AT AGE 47. HAD HX RHEUMATIC FEVER Medications and Allergies Home Medications Medication Instructions Recorded Confirmed Type Levothyroxine Sodium [Synthroid] 50 mcg PO DAILY 04/01/14 06/14/18 History Metoprolol Tartrate [Lopressor] 12.5 mg PO BID 04/01/14 06/14/18 History Budesonide [Pulmicort] 0.5 mg INHALATION RT-BID 04/01/15 06/14/18 History Donepezil [Aricept] 10 mg PO BID 04/01/15 06/14/18 History Albuterol Nebulized [Ventolin 2.5 mg INHALATION RT-Q4H PRN 05/25/17 06/14/18 History Nebulized] levETIRAcetam [Keppra] 750 mg PO BID 09/16/17 06/14/18 History Acetaminophen [Tylenol Arthritis] 650 mg PO Q12HR 06/02/18 06/14/18 History Lutein 10 mg PO DAILY 06/02/18 06/14/18 History [place]-3 Fatty Acids/Fish Oil [Fish 1,000 mg PO DAILY 06/02/18 06/14/18 History Oil 1,000 mg Softgel] Vitamin B Complex 1 cap PO DAILY 06/02/18 06/14/18 History Ipratropium-Albuterol Nebulize 3 ml INHALATION QID #120 ampul.neb 06/05/1806/14 Rx [Duoneb 0.5 mg-3 mg/3 ml Soln] predniSONE 10 mg PO DAILY #30 tab 06/05/18 06/14/18 Rx guaiFENesin [Mucinex] 600 mg PO Q46H 06/14/18 06/14/18 History Allergies Allergy/AdvReac Type Severity Reaction Status Date / Time alprazolam [From Xanax] AdvReac Hallucinati Verified 06/14/18 20:02 ons lorazepam [From Ativan] AdvReac Hallucinati Verified 06/14/18 20:02 ons phenytoin sodium AdvReac Hallucinati Verified 06/14/18 20:02 [From Dilantin] ons Physical Exam Vitals: Vital Signs Temp Pulse Pulse Resp BP BP Pulse Ox 06/15/18 12:00 97.0 F L 80 17 160/92 06/15/18 11:20 74 06/15/18 11:03 77 06/15/18 08:00 97.7 F 89 20 130/73 06/15/18 07:18 90 06/15/18 06:55 91 06/15/18 04:40 97.8 F 83 16 160/83 97 06/15/18 02:09 80 06/15/18 01:57 76 06/15/18 01:00 73 18 144/84 97 06/15/18 00:36 74 20 147/86 97 06/14/18 23:00 84 22 147/86 97 06/14/18 22:00 86 22 117/73 97 06/14/18 20:50 92 24 99/67 97 06/14/18 20:35 82 06/14/18 20:07 24 06/14/18 19:45 75 28 H 06/14/18 19:34 80 24 155/72 100 06/14/18 19:20 97.3 F L 104 H 24 154/81 94 L Intake and Output 06/14/18 06/15/18 06/15/18 22:59 06:59 14:59 Intake Total 260 Balance 260 Intake: Oral 260 Other: Voiding Method Toilet Weight 86.183 kg GENERAL EXAM: Alert, comfortable in no apparent distress. On nasal cannula. HEAD: Normocephalic. EYES: Normal reaction of pupils, equal size. NOSE: Clear with pink turbinates. THROAT: No erythema or exudates. NECK: No masses, no JVD. CHEST: No chest wall deformity. LUNGS: Equal air entry with no crackles, wheeze, rhonchi or dullness. Diminished. CVS: S1 and S2 normal with no audible murmur, regular rhythm. ABDOMEN: No hepatosplenomegaly, normal bowel sounds, no guarding or rigidity. SPINE: No scoliosis or deformity SKIN: No rashes CENTRAL NERVOUS SYSTEM: No focal deficits, tone is normal in all 4 extremities. EXTREMITIES: There is no peripheral edema. No clubbing, no cyanosis. Peripheral pulses are intact. Results - Laboratory Findings CBC and BMP: 06/15/18 10:52 06/15/18 10:52 PT/INR, D-dimer PT 9.7 sec (9.0-12.0) 06/14/18 19:50 INR 0.9 (<1.2) 06/14/18 19:50 Abnormal lab findings: Abnormal Labs 06/14/18 06/14/18 06/14/18 19:50 19:50 19:50 WBC 11.6 H RBC Hgb Hct MCV MCHC Neutrophils # 9.9 H Lymphocytes # APTT Potassium 5.5 H BUN 25 H Glucose 120 H POC Glucose (mg/dL) Alkaline Phosphatase 132 H Total Creatine Kinase 23 L CK-MB (CK-2) 2.5 H 06/14/18 06/15/18 06/15/18 19:50 04:05 06:26 WBC RBC Hgb Hct MCV MCHC Neutrophils # Lymphocytes # APTT 18.9 L Potassium BUN Glucose POC Glucose (mg/dL) 131 H Alkaline Phosphatase Total Creatine Kinase <20 L CK-MB (CK-2) 06/15/18 06/15/18 06/15/18 10:52 10:52 10:52 WBC RBC 3.31 L Hgb 10.1 L Hct 33.4 L MCV 101.0 H MCHC 30.3 L Neutrophils # 8.4 H Lymphocytes # 0.2 L APTT Potassium BUN 24 H Glucose 133 H POC Glucose (mg/dL) Alkaline Phosphatase Total Creatine Kinase 22 L CK-MB (CK-2) 06/15/18 12:57 WBC RBC Hgb Hct MCV MCHC Neutrophils # Lymphocytes # APTT Potassium BUN Glucose POC Glucose (mg/dL) 116 H Alkaline Phosphatase Total Creatine Kinase CK-MB (CK-2) - Diagnostic Findings Chest x-ray: image reviewed (No acute pulmonary process) Assessment and Plan Assessment: Impression: #1 Acute exacerbation of chronic obstructive pulmonary disease. No clear evidence of pneumonia. On nasal O2 at 3 L/m per nasal cannula #2 Hard of hearing. #3 Dementia. #4 History of CVA/TIA. #5 History of diastolic congestive heart failure. Echocardiogram reveals preserved left ventricular systolic function. #6 Hyperlipidemia. #7 Hypertension. #8 History of myocardial infarction. #9 Osteoarthritis. #10 History of seizure disorder. #11 Obstructive sleep apnea, unsure of compliance in the outpatient setting. #12 Hypothyroidism. Plan: The patient was seen and evaluated by Dr. Box. Chest x-ray and labs were reviewed. She is currently being treated for COPD exacerbation. We'll continue DuoNeb inhalations. Increase Pulmicort to 1 mg every 12 hours and Perforomist inhalations. Continue with IV Solu-Medrol and empiric antibiotics. We'll increase her activity as tolerated. We'll continue to follow and make further recommendations based on her clinical status. I, the cosigning physician, performed a history & physical examination of the patient. Lungs sounds are clear, diminished. Maintaining good O2 saturations in the 90s on 3 L/m per nasal cannula. I discussed the assessment and plan of care with my nurse practitioner, Mariama Harris. I attest to the above consultation as dictated by her. Time with Patient: Greater than 30
[2018-06-15 17:15] LABS: Glucose,Whole Blood 118 mg/dL (75-99)
--- NOTE | 2018-06-15 20:15 | PN ---
PROGRESS NOTE DATE OF SERVICE: 06/15/2018 This 82-year-old woman who was admitted with weakness and shortness of breath had possible bilateral pneumonia and COPD, acute exacerbation. A 2D echo with Doppler was read by Cardiology today which showed ejection fraction about 55% to 60% and mild aortic stenosis, moderate to severe mitral regurgitation, mild tricuspid regurgitation. Dr. Box is following the patient closely. The patient is on bronchodilators and IV antibiotics, also. Patient is being closely monitored in Telemetry at this time. Past medical history reviewed. Review of systems could not be taken. Patient is currently confused. CURRENT MEDICATIONS: Reviewed. They include: 1. Tylenol 650 mg b.i.d. 2. DuoNeb q.i.d. and p.r.n. 3. Pulmicort 0.5 b.i.d. 4. Aricept 10 mg b.i.d. 5. Lasix 20 mg p.o. b.i.d. 6. Mucinex 600 mg p.o. b.i.d. 7. Heparin 5000 units subcutaneously b.i.d. 8. NovoLog scale. 9. Keppra 750 p.o. b.i.d. 10.Synthroid 50 mcg p.o. daily. 11.Solu-Medrol 60 IV q.6. 12.Lopressor 12.5 mg b.i.d. 13.Protonix 40 mg daily. 14.Zosyn 3.375 IV q.8. PHYSICAL EXAMINATION: Patient is alert, oriented x2. Pulse 81, blood pressure 182/88, respiration 18, temperature normal, pulse ox 92% on 3 L. HEENT: Conjunctivae normal. NECK: No jugular venous distention. CARDIOVASCULAR SYSTEM: S1, S2 muffled. RESPIRATORY SYSTEM: Breath sounds diminished at the bases. Bilateral scattered rhonchi and crackles. Breathing efforts are increased. ABDOMEN: Soft, non-tender. LEGS: No edema. No swelling. NERVOUS SYSTEM: Mild diffuse weakness. LABS: WBC 8.8, hemoglobin 10.1, sodium 139, potassium 4.8. ASSESSMENT: 1. Chronic obstructive pulmonary disease, acute exacerbation, with possible acute bilateral bronchopneumonia, possibly gram-negative, for evaluation. 2. Possible congestive heart failure, acute exacerbation. 3. Hyperkalemia. 4. History of chronic obstructive pulmonary disease and congestive heart failure. 5. Cerebrovascular accident, transient ischemic attack. 6. Dementia. 7. Gastroesophageal reflux disease. 8. Hypertension. 9. Hyperlipidemia. 10.History of myocardial infarction. 11.History of degenerative joint disease. 12.History of pneumonia. 13.History of seizure disorder. 14.History of sleep apnea. 15.History of change in mental status with acute on chronic metabolic encephalopathy. 16.History of hypothyroidism. 17.History of chronic hypoxic respiratory failure. 18.Obstructive sleep apnea. 19.History of back surgery, degenerative joint disease. 20.History of anxiety. RECOMMENDATIONS AND DISCUSSION: In this 82-year-old woman who presented with multiple complex medical issues, we will monitor the patient closely, continue the current management, continue with symptomatic treatment. Continue with the bronchodilators. Continue with DVT prophylaxis. Continue with empiric antibiotics. Continue with IV steroids. Continue with IV Zosyn at this time. Monitor closely. Cultures are negative so far. Resume the home medications. Medication reconciliation was done. Prognosis guarded because of multiple complex medical issues. Further recommendations to follow. MMODL / IJN: [id number] /
[2018-06-15] MEDS: IPRATROPIUM-ALBUTEROL 3 ML NEB INHALATION PRN (20:40)
[2018-06-15] MEDS: METOPROLOL TARTRATE 12.5 MG TAB PO SCH (21:10)
[2018-06-15 21:11] LABS: Glucose,Whole Blood 129 mg/dL (75-99)
[2018-06-16] MEDS: IPRATROPIUM-ALBUTEROL 3 ML NEB INHALATION PRN ×2 (00:03→03:27)
[2018-06-16 05:58] LABS: Glucose,Whole Blood 171 mg/dL (75-99)
[2018-06-16] MEDS: methylPREDNISolone SOD SUCCI 125 MG/2 ML VIAL IV SCH ×3 (05:58→17:33)
[2018-06-16] MEDS: PANTOPRAZOLE 40 MG TABLET PO SCH (05:58)
[2018-06-16] MEDS: INSULIN ASPART 100 UNIT/ML 1 ML 10 ML VIAL SQ SCH ×4 (06:04→20:58)
[2018-06-16] MEDS: IPRATROPIUM-ALBUTEROL 3 ML NEB INHALATION SCH ×4 (07:41→19:02)
[2018-06-16] MEDS: BUDESONIDE 0.5 MG/2 ML NEBU INHALATION SCH ×2 (07:41→19:02)
[2018-06-16 07:42] LABS: Basophils % (A) 0 %; Eosinophils # (A) 0.1 k/uL (0-0.7); Eosinophils % (A) 0 %; HCT 35.8 % (34.0-46.0); HGB 10.9 gm/dL (11.4-16.0); Lymphocytes # (A) 0.4 k/uL (1.0-4.8); Lymphocytes % (A) 3 %; MCH 29.5 pg (25.0-35.0); MCHC 30.4 g/dL (31.0-37.0); MCV 97.1 fL (80.0-100.0); Mean Platelet Volume 7.3; Monocytes # (A) 0.4 k/uL (0-1.0); Monocytes % (A) 4 %; Neutrophils # (A) 10.7 k/uL (1.3-7.7); Neutrophils % (A) 92 %; Platelet Count 252 k/uL (150-450); RBC 3.69 m/uL (3.80-5.40); RDW 13.4 % (11.5-15.5); WBC 11.6 k/uL (3.8-10.6)
[2018-06-16 07:58] LABS: Potassium 4.2 mmol/L (3.5-5.1)
[2018-06-16] MEDS: ACETAMINOPHEN TAB 325 MG TAB PO SCH ×2 (08:03→20:32)
[2018-06-16] MEDS: DONEPEZIL 10 MG TAB PO SCH ×2 (08:05→20:33)
[2018-06-16] MEDS: HEPARIN SODIUM,PORCINE 5,000 UNIT/ML 1 ML VIAL SQ SCH ×2 (08:05→20:32)
[2018-06-16] MEDS: FUROSEMIDE 10 MG/ML 4 ML VIAL IV SCH ×2 (08:05→20:32)
[2018-06-16] MEDS: LEVOTHYROXINE 50 MCG TAB PO SCH (08:05)
[2018-06-16] MEDS: METOPROLOL TARTRATE 12.5 MG TAB PO SCH ×2 (08:06→20:32)
[2018-06-16] MEDS: PIPERACILLIN-TAZOBACTAM 3.375 GM in SODIUM CHLORIDE 0.9% 100 ML IVPB SCH ×2 (08:06→17:33)
--- NOTE | 2018-06-16 10:49 | P.PN ---
Subjective Progress Note Date: 06/16/18 Principal diagnosis: Acute exacerbation of chronic obstructive pulmonary disease. This is a very pleasant 82-year-old female patient who follows with Dr. De La Paz as her primary care physician. She has a history of hypothyroidism, dementia, hard of hearing, hyperlipidemia, hypertension, osteoarthritis, obstructive sleep apnea not utilizing CPAP in the outpatient setting, chronic obstructive pulmonary disease. She was last month with a COPD exacerbation. She presented here to the emergency room again yesterday with progressive shortness of breath. Her chest x-ray shows no active cardiopulmonary disease. No changes compared to previous on 06/02/2018. Echocardiogram reveals preserved left ventricular systolic function. White count 8.8. Hemoccult and 10.1. Creatinine 0.90. Troponins negative. She is currently maintaining good O2 saturations in the mid 90s on 3 L/m per nasal cannula. She's afebrile. She is seen in consultation in the emergency room. She is currently sitting up on the stretcher eating lunch. She is awake and alert in no acute distress. She has been initiated on DuoNeb inhalations, Pulmicort inhalations, IV Solu-Medrol and empiric antibiotics in the form of Zosyn. She is also been initiated on IV diuretics. The patient was seen again today to 06/16/2018 in follow-up on the selective care unit. She is currently sitting up at the bedside. She is awake and alert in no acute distress. She is still having some complaints of shortness of breath and dyspnea on minimal exertion. She is quite hard of hearing. She is maintaining good O2 saturations in the 90s on 3 L/m per nasal cannula. Afebrile. She is currently hypertensive. Blood and urine culture reveals no growth to date. White count 11.6. Hemoglobin 10.9. Creatinine 1.03. She remains on bronchodilators, IV Solu-Medrol, empiric antibiotics. She also remains on IV diuretics. Objective - Vital Signs Vital signs: Vital Signs Temp 98.1 F 06/16/18 07:00 Pulse 81 06/16/18 08:00 Resp 18 06/16/18 08:00 BP 197/88 06/16/18 07:43 Pulse Ox 96 06/16/18 07:43 Intake & Output 06/15/18 06/16/18 06/16/18 18:59 06:59 18:59 Intake Total 1145 240 240 Output Total 500 450 300 Balance 645 -210 -60 Weight 62.9 kg Intake: IV 25 Piperacillin-Tazobactam 3 25 .375 gm In Sodium Chloride 0.9% 100 ml @ 25 mls/hr IVPB Q8H [facility] Rx#: [id number] Oral 1120 240 240 Output: Urine 500 450 300 Other: Voiding Method Toilet Toilet # Voids 3 1 - Exam GENERAL EXAM: Alert, frail, cachectic, comfortable in no apparent distress. HEAD: Normocephalic. Extremely hard of hearing. EYES: Normal reaction of pupils, equal size. NOSE: Clear with pink turbinates. THROAT: No erythema or exudates. NECK: No masses, no JVD. CHEST: No chest wall deformity. LUNGS: Equal air entry with bilateral end expiratory wheeze, diminished. CVS: S1 and S2 normal with no audible murmur, regular rhythm. ABDOMEN: No hepatosplenomegaly, normal bowel sounds, no guarding or rigidity. SPINE: Kyphoscoliosis. SKIN: No rashes, poor skin turgor. CENTRAL NERVOUS SYSTEM: No focal deficits, tone is normal in all 4 extremities. EXTREMITIES: There is no peripheral edema. No clubbing, no cyanosis. Peripheral pulses are intact. - Labs CBC & Chem 7: 06/16/18 07:05 06/16/18 07:05 Labs: Abnormal Lab Results - Last 24 Hours (Table) 06/15/18 06/15/18 06/15/18 Range/Units 10:52 10:52 10:52 WBC (3.8-10.6) k/uL RBC 3.31 L (3.80-5.40) m/uL Hgb 10.1 L (11.4-16.0) gm/dL Hct 33.4 L (34.0-46.0) % MCV 101.0 H (80.0-100.0) fL MCHC 30.3 L (31.0-37.0) g/dL Neutrophils # 8.4 H (1.3-7.7) k/uL Lymphocytes # 0.2 L (1.0-4.8) k/uL Carbon Dioxide (22-30) mmol/L BUN 24 H (7-17) mg/dL Glucose 133 H (74-99) mg/dL POC Glucose (mg/dL) (75-99) mg/dL Total Creatine Kinase 22 L (30-135) U/L 06/15/18 06/15/18 06/15/18 Range/Units 12:57 17:10 21:09 WBC (3.8-10.6) k/uL RBC (3.80-5.40) m/uL Hgb (11.4-16.0) gm/dL Hct (34.0-46.0) % MCV (80.0-100.0) fL MCHC (31.0-37.0) g/dL Neutrophils # (1.3-7.7) k/uL Lymphocytes # (1.0-4.8) k/uL Carbon Dioxide (22-30) mmol/L BUN (7-17) mg/dL Glucose (74-99) mg/dL POC Glucose (mg/dL) 116 H 118 H 129 H (75-99) mg/dL Total Creatine Kinase (30-135) U/L 06/16/18 06/16/18 06/16/18 Range/Units 05:54 07:05 07:05 WBC 11.6 H (3.8-10.6) k/uL RBC 3.69 L (3.80-5.40) m/uL Hgb 10.9 L (11.4-16.0) gm/dL Hct (34.0-46.0) % MCV (80.0-100.0) fL MCHC 30.4 L (31.0-37.0) g/dL Neutrophils # 10.7 H (1.3-7.7) k/uL Lymphocytes # 0.4 L (1.0-4.8) k/uL Carbon Dioxide 33 H (22-30) mmol/L BUN 34 H (7-17) mg/dL Glucose 129 H (74-99) mg/dL POC Glucose (mg/dL) 171 H (75-99) mg/dL Total Creatine Kinase (30-135) U/L Microbiology - Last 24 Hours (Table) 06/14/18 19:50 Blood Culture - Preliminary Blood No Growth after 24 hours 06/15/18 06:39 Urine Culture - Preliminary Urine,Voided Assessment and Plan Assessment: Impression: #1 Acute on chronic hypoxic respiratory failure secondary to an acute exacerbation of chronic obstructive pulmonary disease. No clear evidence of pneumonia. On nasal O2 at 3 L/m per nasal cannula #2 Hard of hearing. #3 Dementia. #4 History of CVA/TIA. #5 History of diastolic congestive heart failure. Echocardiogram reveals preserved left ventricular systolic function. #6 Hyperlipidemia. #7 Hypertension. #8 History of myocardial infarction. #9 Osteoarthritis. #10 History of seizure disorder. #11 Obstructive sleep apnea, unsure of compliance in the outpatient setting. #12 Hypothyroidism. Plan: The patient was seen and evaluated by Dr. Box. We will continue with her current pulmonary medications. We'll increase her activity as tolerated. We' ll continue to follow and make further recommendations based on her clinical status. I, the cosigning physician, performed a history & physical examination of the patient. Lungs sounds with faint end expiratory wheeze, diminished. Maintaining good O2 saturations in the 90s on 3 L/m per nasal cannula. I discussed the assessment and plan of care with my nurse practitioner, Mariama Harris. I attest to the above consultation as dictated by her.
--- NOTE | 2018-06-16 11:59 | P.CRDCN ---
History of Present Illness Consult date: 06/16/18 Requesting physician: Anselmo Alvarez Consult reason: congestive heart failure Chief complaint: Shortness of breath History of present illness: This is a very pleasant 82-year-old female patient who follows with Dr. De La Paz as her primary care physician. She has a history of hypothyroidism, dementia, hard of hearing, hyperlipidemia, hypertension, osteoarthritis, obstructive sleep apnea not utilizing CPAP in the outpatient setting, chronic obstructive pulmonary disease. She was last month with a COPD exacerbation. She presented here to the emergency room again yesterday with progressive shortness of breath. Her chest x-ray shows no active cardiopulmonary disease. No changes compared to previous on 06/02/2018. Echocardiogram reveals preserved left ventricular systolic function. White count 8.8. Hemoccult and 10.1. Creatinine 0.90. Troponins negative. BNP level 4290. She is currently maintaining good O2 saturations in the mid 90s on 3 L/m per nasal cannula. She' s afebrile. Cardiology consultation was requested because of abnormal BNP level. Patient has been seen in consultation by pulmonary service and is being treated for exacerbation of COPD at present. Influenza A and B were negative. Patient is extremely hard of hearing, she states that her shortness of breath feels worse today than on presentation here. She is currently on Lasix 20 mg IV twice a day. She is also receiving antibiotics along with Solu-Medrol. Diuresing well on IV Lasix. BUN 34 and creatinine 1.0 today. Past Medical History Past Medical History: Heart Failure, COPD, CVA/TIA, Dementia, GERD/Reflux, Hearing Disorder / Deafness, Hyperlipidemia, Hypertension, Myocardial Infarction (ID), Osteoarthritis (OA), Pneumonia, Seizure Disorder, Sleep Apnea/ CPAP/BIPAP, Thyroid Disorder Additional Past Medical History / Comment(s): COPD, chronic hypoxic respiratory failure, impaired hearing, impaired vision, obstructive sleep apnea but she does not utilize any CPAP therapy, remote history of C. diff colitis, hypothyroidism, previous TIA, dementia, acid reflux, coronary artery disease with previous myocardial infarction, seizure disorder, calcified gallstone Last Myocardial Infarction Date:: UNK History of Any Multi-Drug Resistant Organisms: None Reported Past Surgical History: Back Surgery Additional Past Surgical History / Comment(s): Carpal tunnel release involving the right hand, back surgery involving laminectomy and fusion. She has had also previous lumpectomy Past Anesthesia/Blood Transfusion Reactions: No Reported Reaction Smoking Status: Never smoker - Past Family History Father Additional Family Medical History / Comment(s): AT AGE 89 Mother Family Medical History: Hypertension Additional Family Medical History / Comment(s): AT AGE 47. HAD HX RHEUMATIC FEVER Medications and Allergies Home Medications Medication Instructions Recorded Confirmed Type Levothyroxine Sodium [Synthroid] 50 mcg PO DAILY 04/01/14 06/14/18 History Metoprolol Tartrate [Lopressor] 12.5 mg PO BID 04/01/14 06/14/18 History Budesonide [Pulmicort] 0.5 mg INHALATION RT-BID 04/01/15 06/14/18 History Donepezil [Aricept] 10 mg PO BID 04/01/15 06/14/18 History Albuterol Nebulized [Ventolin 2.5 mg INHALATION RT-Q4H PRN 05/25/17 06/14/18 History Nebulized] levETIRAcetam [Keppra] 750 mg PO BID 09/16/17 06/14/18 History Acetaminophen [Tylenol Arthritis] 650 mg PO Q12HR 06/02/18 06/14/18 History Lutein 10 mg PO DAILY 06/02/18 06/14/18 History Ferron-3 Fatty Acids/Fish Oil [Fish 1,000 mg PO DAILY 06/02/18 06/14/18 History Oil 1,000 mg Softgel] Vitamin B Complex 1 cap PO DAILY 06/02/18 06/14/18 History Ipratropium-Albuterol Nebulize 3 ml INHALATION QID #120 ampul.neb 06/05/1806/14 Rx [Duoneb 0.5 mg-3 mg/3 ml Soln] predniSONE 10 mg PO DAILY #30 tab 06/05/18 06/14/18 Rx guaiFENesin [Mucinex] 600 mg PO Q46H 06/14/18 06/14/18 History Allergies Allergy/AdvReac Type Severity Reaction Status Date / Time alprazolam [From Xanax] AdvReac Hallucinati Verified 06/14/18 20:02 ons lorazepam [From Ativan] AdvReac Hallucinati Verified 06/14/18 20:02 ons phenytoin sodium AdvReac Hallucinati Verified 06/14/18 20:02 [From Dilantin] ons Physical Exam Vitals: Vital Signs Temp Pulse Pulse Resp BP Pulse Ox 06/16/18 11:40 77 20 06/16/18 11:38 77 20 165/72 94 L 06/16/18 11:33 90 06/16/18 11:18 90 06/16/18 08:00 81 18 06/16/18 07:56 88 06/16/18 07:43 81 18 197/88 96 06/16/18 07:41 86 06/16/18 07:00 98.1 F 174/94 06/16/18 03:42 88 06/16/18 03:27 88 80 20 162/93 93 L 06/16/18 02:31 19 06/16/18 00:14 88 06/16/18 00:03 84 06/15/18 23:46 80 19 144/60 94 L 06/15/18 21:02 87 06/15/18 20:40 87 06/15/18 20:00 98 F 80 19 135/66 92 L 06/15/18 18:39 90 06/15/18 18:35 81 18 182/88 92 L 06/15/18 18:28 88 06/15/18 16:00 98.2 F 78 25 H 157/76 06/15/18 15:18 92 06/15/18 15:08 86 06/15/18 12:00 97.0 F L 80 17 160/92 Intake and Output 06/15/18 06/16/18 06/16/18 22:59 06:59 14:59 Intake Total 240 240 Output Total 150 300 300 Balance 90 -300 -60 Intake: Oral 240 240 Output: Urine 150 300 300 Other: Voiding Method Toilet Toilet # Voids 1 Weight 62.9 kg GENERAL EXAM: Alert, comfortable in no apparent distress. On nasal cannula. HEAD: Normocephalic. EYES: Normal reaction of pupils, equal size. NOSE: Clear with pink turbinates. THROAT: No erythema or exudates. NECK: No masses, no JVD. CHEST: No chest wall deformity. LUNGS: Scattered coarse rhonchi and wheezing throughout, diminished. CVS: S1 and S2 systolic murmur is heard . ABDOMEN: No hepatosplenomegaly, normal bowel sounds, no guarding or rigidity. SPINE: No scoliosis or deformity SKIN: No rashes CENTRAL NERVOUS SYSTEM: No focal deficits, tone is normal in all 4 extremities. EXTREMITIES: There is no peripheral edema. No clubbing, no cyanosis. Peripheral pulses are intact. Results 06/16/18 07:05 06/16/18 07:05 Cardiac Enzymes 06/15/18 Range/Units 10:52 CK-MB (CK-2) 1.7 (0.0-2.4) ng/mL Troponin I 0.013 (0.000-0.034) ng/mL CBC 06/15/18 06/16/18 Range/Units 10:52 07:05 WBC 8.8 11.6 H (3.8-10.6) k/uL RBC 3.31 L 3.69 L (3.80-5.40) m/uL Hgb 10.1 L 10.9 L (11.4-16.0) gm/dL Hct 33.4 L 35.8 (34.0-46.0) % Plt Count 213 252 (150-450) k/uL Comprehensive Metabolic Panel 06/15/18 06/16/18 Range/Units 10:52 07:05 Sodium 139 140 (137-145) mmol/L Potassium 4.8 4.2 (3.5-5.1) mmol/L Chloride 103 98 (98-107) mmol/L Carbon Dioxide 29 33 H (22-30) mmol/L BUN 24 H 34 H (7-17) mg/dL Creatinine 0.90 1.03 (0.52-1.04) mg/dL Glucose 133 H 129 H (74-99) mg/dL Calcium 9.5 10.0 (8.4-10.2) mg/dL Current Medications Generic Name Dose Route Start Last Admin Trade Name Freq PRN Reason Stop Dose Admin Acetaminophen 650 mg 06/15/18 09:00 06/16/18 08:03 Tylenol Tab PO 650 mg Q12HR LAILA Administration Albuterol/Ipratropium 3 ml 06/15/18 09:00 06/16/18 11:18 Duoneb 0.5 Mg-3 Mg/3 Ml Soln INHALATION 3 ml QID LAILA Administration Albuterol/Ipratropium 3 ml 06/15/18 18:34 06/16/18 03:27 Duoneb 0.5 Mg-3 Mg/3 Ml Soln INHALATION 3 ml RT-Q2H PRN Administration Shortness Of Breath Or Wheezing Budesonide 0.5 mg 06/15/18 08:00 06/16/18 07:41 Pulmicort INHALATION 0.5 mg RT-BID LAILA Administration Donepezil HCl 10 mg 06/15/18 09:00 06/16/18 08:05 Aricept PO 10 mg BID LAILA Administration Furosemide 20 mg 06/14/18 21:00 06/16/18 08:05 Lasix IV 20 mg Q12HR LAILA Administration Guaifenesin 600 mg 06/15/18 09:00 Mucinex PO BID PRN COUGH/CONGESTION Heparin Sodium (Porcine) 5,000 unit 06/15/18 09:00 06/16/18 08:05 Heparin SQ 5,000 unit Q12HR LAILA Administration Piperacillin Sod/Tazobactam 100 mls @ 25 mls/hr 06/15/18 01:00 06/16/18 08:06 Sod 3.375 gm/ Sodium Chloride IVPB 25 mls/hr Q8H LAILA Administration Insulin Aspart 0 unit 06/15/18 07:30 06/16/18 06:04 Novolog SQ 2 unit ACHS LAILA Administration Protocol Levetiracetam 750 mg 06/15/18 09:00 06/16/18 08:05 Keppra PO 750 mg BID LAILA Administration Levothyroxine Sodium 50 mcg 06/15/18 09:00 06/16/18 08:05 Synthroid PO 50 mcg DAILY LAILA Administration Methylprednisolone Sodium Succinate 60 mg 06/15/18 00:30 06/16/18 05:58 Solu-Medrol IV 60 mg Q6HR LAILA Administration Metoprolol Tartrate 12.5 mg 06/15/18 21:00 06/16/18 08:06 Lopressor PO 12.5 mg BID LAILA Administration Pantoprazole Sodium 40 mg 06/15/18 07:30 06/16/18 05:58 Protonix PO 40 mg AC-[id number] LAILA Administration Intake and Output 06/15/18 06/16/18 06/16/18 22:59 06:59 14:59 Intake Total 240 240 Output Total 150 300 300 Balance 90 -300 -60 Intake: Oral 240 240 Output: Urine 150 300 300 Other: Voiding Method Toilet Toilet # Voids 1 Weight 62.9 kg 06/16/18 07:05 06/16/18 07:05 EKG Interpretations (text) EKG shows a normal sinus rhythm with nonspecific ST-T wave changes. Assessment and Plan Plan: Impression: #1 Acute exacerbation of chronic obstructive pulmonary disease. No clear evidence of pneumonia. On nasal O2 at 3 L/m per nasal cannula #2 Hard of hearing. #3 Dementia. #4 History of CVA/TIA. #5 Diastolic congestive heart failure acute on chronic. Echocardiogram reveals preserved left ventricular systolic function. #6 Hyperlipidemia. #7 Hypertension. #8 History of myocardial infarction. #9 Osteoarthritis. #10 History of seizure disorder. #11 Obstructive sleep apnea, unsure of compliance in the outpatient setting. #12 Hypothyroidism. Plan We will continue current dose of IV Lasix for 24 hours. Echocardiogram with Doppler study has been reviewed, reveals normal left ventricular systolic function. Moderate to severe mitral regurgitation. Add a small dose of angiotensin edwardo for more optimal blood pressure control. Further recommendations to follow. DNP note has been reviewed, I agree with a documented findings and plan of care. Patient was seen and examined.
[2018-06-16 12:09] LABS: Glucose,Whole Blood 113 mg/dL (75-99)
[2018-06-16 16:55] LABS: Glucose,Whole Blood 125 mg/dL (75-99)
[2018-06-16] MEDS: guaiFENesin 600 MG TABLET.ER PO PRN (20:33)
[2018-06-16 20:37] LABS: Glucose,Whole Blood 141 mg/dL (75-99)
[2018-06-17] MEDS: PIPERACILLIN-TAZOBACTAM 3.375 GM in SODIUM CHLORIDE 0.9% 100 ML IVPB SCH ×3 (00:18→16:15)
[2018-06-17] MEDS: methylPREDNISolone SOD SUCCI 125 MG/2 ML VIAL IV SCH ×3 (00:18→12:55)
[2018-06-17] MEDS: BUDESONIDE 0.5 MG/2 ML NEBU INHALATION SCH ×2 (07:16→21:13)
[2018-06-17] MEDS: IPRATROPIUM-ALBUTEROL 3 ML NEB INHALATION SCH ×4 (07:16→21:12)
[2018-06-17 07:25] LABS: Glucose,Whole Blood 112 mg/dL (75-99)
[2018-06-17] MEDS: INSULIN ASPART 100 UNIT/ML 1 ML 10 ML VIAL SQ SCH ×4 (07:52→22:50)
[2018-06-17] MEDS: LEVOTHYROXINE 50 MCG TAB PO SCH (07:59)
[2018-06-17] MEDS: METOPROLOL TARTRATE 12.5 MG TAB PO SCH ×2 (07:59→22:51)
[2018-06-17] MEDS: HEPARIN SODIUM,PORCINE 5,000 UNIT/ML 1 ML VIAL SQ SCH ×2 (07:59→22:51)
[2018-06-17] MEDS: FUROSEMIDE 10 MG/ML 4 ML VIAL IV SCH (08:00)
[2018-06-17] MEDS: ACETAMINOPHEN TAB 325 MG TAB PO SCH ×2 (08:00→22:51)
[2018-06-17] MEDS: PANTOPRAZOLE 40 MG TABLET PO SCH (08:04)
[2018-06-17] MEDS: DONEPEZIL 10 MG TAB PO SCH ×2 (08:14→23:07)
[2018-06-17 09:21] LABS: Potassium 4.5 mmol/L (3.5-5.1)
[2018-06-17 09:35] LABS: Basophils % (A) 0 %; Eosinophils % (A) 0 %; Lymphocytes # (A) 0.6 k/uL (1.0-4.8); Lymphocytes % (A) 6 %; MCH 29.6 pg (25.0-35.0); MCHC 30.5 g/dL (31.0-37.0); Mean Platelet Volume 6.9; Monocytes % (A) 10 %; Neutrophils # (A) 8.3 k/uL (1.3-7.7); Neutrophils % (A) 82 %; Platelet Count 236 k/uL (150-450); RBC 3.71 m/uL (3.80-5.40); RDW 13.5 % (11.5-15.5); WBC 10.1 k/uL (3.8-10.6)
[2018-06-17 11:25] LABS: Glucose,Whole Blood 102 mg/dL (75-99)
--- NOTE | 2018-06-17 12:49 | P.PN ---
Subjective Progress Note Date: 06/17/18 Principal diagnosis: Acute exacerbation of chronic obstructive pulmonary disease. This is a very pleasant 82-year-old female patient who follows with Dr. De La Paz as her primary care physician. She has a history of hypothyroidism, dementia, hard of hearing, hyperlipidemia, hypertension, osteoarthritis, obstructive sleep apnea not utilizing CPAP in the outpatient setting, chronic obstructive pulmonary disease. She was last month with a COPD exacerbation. She presented here to the emergency room again yesterday with progressive shortness of breath. Her chest x-ray shows no active cardiopulmonary disease. No changes compared to previous on 06/02/2018. Echocardiogram reveals preserved left ventricular systolic function. White count 8.8. Hemoccult and 10.1. Creatinine 0.90. Troponins negative. She is currently maintaining good O2 saturations in the mid 90s on 3 L/m per nasal cannula. She's afebrile. She is seen in consultation in the emergency room. She is currently sitting up on the stretcher eating lunch. She is awake and alert in no acute distress. She has been initiated on DuoNeb inhalations, Pulmicort inhalations, IV Solu-Medrol and empiric antibiotics in the form of Zosyn. She is also been initiated on IV diuretics. The patient was seen again today to 06/16/2018 in follow-up on the selective care unit. She is currently sitting up at the bedside. She is awake and alert in no acute distress. She is still having some complaints of shortness of breath and dyspnea on minimal exertion. She is quite hard of hearing. She is maintaining good O2 saturations in the 90s on 3 L/m per nasal cannula. Afebrile. She is currently hypertensive. Blood and urine culture reveals no growth to date. White count 11.6. Hemoglobin 10.9. Creatinine 1.03. She remains on bronchodilators, IV Solu-Medrol, empiric antibiotics. She also remains on IV diuretics. The patient is seen again today 06/17/2017 in follow-up on the regular medical floor. She is awake and alert in no acute distress. She is currently afebrile. Maintaining good O2 saturations in the mid 90s on 3 L/m per nasal cannula. Hemodynamically stable. A culture reveals no growth. Urine culture reveals no growth. White count 10.1. Hemoglobin 11.0. Creatinine 1.11. She remains on bronchodilators, Pulmicort inhalations, IV Solu-Medrol and antibiotics in the form of Zosyn. Objective - Vital Signs Vital signs: Vital Signs Temp 98 F 06/17/18 11:56 Pulse 88 06/17/18 11:56 Resp 22 06/17/18 11:56 BP 138/78 06/17/18 11:56 Pulse Ox 94 L 06/17/18 11:56 Intake & Output 06/16/18 06/17/18 06/17/18 18:59 06:59 18:59 Intake Total 480 560 Output Total 750 Balance -270 560 Intake: Oral 480 560 Output: Urine 750 Other: Voiding Method Toilet Bedside Commode # Voids 1 2 2 # Bowel Movements 1 - Exam GENERAL EXAM: Alert, frail, cachectic, comfortable in no apparent distress. On nasal O2. HEAD: Normocephalic. Extremely hard of hearing. EYES: Normal reaction of pupils, equal size. NOSE: Clear with pink turbinates. THROAT: No erythema or exudates. NECK: No masses, no JVD. CHEST: No chest wall deformity. LUNGS: Equal air entry with bilateral end expiratory wheeze, diminished. CVS: S1 and S2 normal with no audible murmur, regular rhythm. ABDOMEN: No hepatosplenomegaly, normal bowel sounds, no guarding or rigidity. SPINE: Kyphoscoliosis. SKIN: No rashes, poor skin turgor. CENTRAL NERVOUS SYSTEM: No focal deficits, tone is normal in all 4 extremities. EXTREMITIES: There is no peripheral edema. No clubbing, no cyanosis. Peripheral pulses are intact. - Labs CBC & Chem 7: 06/17/18 08:19 06/17/18 08:19 Labs: Abnormal Lab Results - Last 24 Hours (Table) 06/16/18 06/16/18 06/17/18 Range/Units 16:19 20:22 07:24 RBC (3.80-5.40) m/uL Hgb (11.4-16.0) gm/dL MCHC (31.0-37.0) g/dL Neutrophils # (1.3-7.7) k/uL Lymphocytes # (1.0-4.8) k/uL Chloride (98-107) mmol/L Carbon Dioxide (22-30) mmol/L BUN (7-17) mg/dL Creatinine (0.52-1.04) mg/dL Glucose (74-99) mg/dL POC Glucose (mg/dL) 125 H 141 H 112 H (75-99) mg/dL 06/17/18 06/17/18 06/17/18 Range/Units 08:19 08:19 11:20 RBC 3.71 L (3.80-5.40) m/uL Hgb 11.0 L (11.4-16.0) gm/dL MCHC 30.5 L (31.0-37.0) g/dL Neutrophils # 8.3 H (1.3-7.7) k/uL Lymphocytes # 0.6 L (1.0-4.8) k/uL Chloride 95 L (98-107) mmol/L Carbon Dioxide 37 H (22-30) mmol/L BUN 41 H (7-17) mg/dL Creatinine 1.11 H (0.52-1.04) mg/dL Glucose 109 H (74-99) mg/dL POC Glucose (mg/dL) 102 H (75-99) mg/dL Microbiology - Last 24 Hours (Table) 06/14/18 19:50 Blood Culture - Preliminary Blood No Growth after 48 hours 06/15/18 06:39 Urine Culture - Final Urine,Voided Assessment and Plan Assessment: Impression: #1 Acute on chronic hypoxic respiratory failure secondary to an acute exacerbation of chronic obstructive pulmonary disease. No clear evidence of pneumonia. On nasal O2 at 3 L/m per nasal cannula #2 Hard of hearing. #3 Dementia. #4 History of CVA/TIA. #5 History of diastolic congestive heart failure. Echocardiogram reveals preserved left ventricular systolic function. #6 Hyperlipidemia. #7 Hypertension. #8 History of myocardial infarction. #9 Osteoarthritis. #10 History of seizure disorder. #11 Obstructive sleep apnea, unsure of compliance in the outpatient setting. #12 Hypothyroidism. Plan: The patient was seen and evaluated by Dr. Box. She remains stable from the pulmonary standpoint. We'll continue to follow and make further recommendations based on her clinical status. I, the cosigning physician, performed a history & physical examination of the patient. Lungs sounds with faint end expiratory wheeze, diminished. Maintaining good O2 saturations in the 90s on 3 L/m per nasal cannula. I discussed the assessment and plan of care with my nurse practitioner, Mariama Harris. I attest to the above consultation as dictated by her.
--- NOTE | 2018-06-17 12:53 | P.PN ---
Subjective This is a pleasant 82-year-old female past medical history significant for hypothyroidism, dementia, dyslipidemia, hypertension, obstructive sleep apnea, COPD and heart of hearing. She is seen and examined in the medical floor laying flat in bed resting comfortably in no acute distress. She continues to complain of shortness of breath and is adamantly requesting a breathing treatment. She was initiated on IV Lasix on admission due to an elevated and he proBNP. She is also receiving antibiotics along with Solu-Medrol. Laboratory data reviewed, WBC 10.1, hemoglobin 11, platelets 236, sodium 138, potassium 4.5, creatinine 1.11. Echocardiogram obtained reveals preserved left ventricular systolic function with ejection fraction 55-60%, mild aortic stenosis with a mean gradient across the valve of 10 mmHg, moderate to severe mitral regurgitation and mild tricuspid regurgitation noted. Blood pressure 138/78 heart rate 88 afebrile maintaining oxygen saturation on nasal cannula. GENERAL: Well-appearing, well-nourished and in no acute distress. NECK: Supple without JVD or thyromegaly. LUNGS: Expiratory wheezes noted, diminished bilaterally. No rhonchi or rales. Respiration equal and unlabored. HEART: Regular rate and rhythm with systolic ejection murmur at the left sternal border, no rubs or gallops. S1 and S2 heard. EXTREMITIES: Normal range of motion, no edema. No clubbing or cyanosis. Peripheral pulses intact. ASSESSMENT Acute exacerbation of COPD Acute on chronic diastolic heart failure Dyslipidemia Hypertension Hypothyroidism Obstructive sleep apnea Dementia PLAN Patient has diuresed well, transitioned to oral diuretics. Ongoing medical management. We will continue to follow as needed, please feel free to call with further questions or concerns. Follow up with Dr. Farooq upon discharge. Nurse Practitioner note has been reviewed, I agree with a documented findings and plan of care. Patient was seen and examined. Objective - Vital Signs Vital signs: Vital Signs Temp 98 F 06/17/18 11:56 Pulse 88 06/17/18 11:56 Resp 22 06/17/18 11:56 BP 138/78 06/17/18 11:56 Pulse Ox 94 L 06/17/18 11:56 Intake & Output 06/16/18 06/17/18 06/17/18 18:59 06:59 18:59 Intake Total 480 560 Output Total 750 Balance -270 560 Intake: Oral 480 560 Output: Urine 750 Other: Voiding Method Toilet Bedside Commode # Voids 1 2 2 # Bowel Movements 1 - Labs CBC & Chem 7: 06/17/18 08:19 06/17/18 08:19 Labs: Abnormal Lab Results - Last 24 Hours (Table) 06/16/18 06/16/18 06/17/18 Range/Units 16:19 20:22 07:24 RBC (3.80-5.40) m/uL Hgb (11.4-16.0) gm/dL MCHC (31.0-37.0) g/dL Neutrophils # (1.3-7.7) k/uL Lymphocytes # (1.0-4.8) k/uL Chloride (98-107) mmol/L Carbon Dioxide (22-30) mmol/L BUN (7-17) mg/dL Creatinine (0.52-1.04) mg/dL Glucose (74-99) mg/dL POC Glucose (mg/dL) 125 H 141 H 112 H (75-99) mg/dL 06/17/18 06/17/18 06/17/18 Range/Units 08:19 08:19 11:20 RBC 3.71 L (3.80-5.40) m/uL Hgb 11.0 L (11.4-16.0) gm/dL MCHC 30.5 L (31.0-37.0) g/dL Neutrophils # 8.3 H (1.3-7.7) k/uL Lymphocytes # 0.6 L (1.0-4.8) k/uL Chloride 95 L (98-107) mmol/L Carbon Dioxide 37 H (22-30) mmol/L BUN 41 H (7-17) mg/dL Creatinine 1.11 H (0.52-1.04) mg/dL Glucose 109 H (74-99) mg/dL POC Glucose (mg/dL) 102 H (75-99) mg/dL Microbiology - Last 24 Hours (Table) 06/14/18 19:50 Blood Culture - Preliminary Blood No Growth after 48 hours 06/15/18 06:39 Urine Culture - Final Urine,Voided
[2018-06-17 17:29] LABS: Glucose,Whole Blood 99 mg/dL (75-99)
--- NOTE | 2018-06-17 17:56 | PN ---
PROGRESS NOTE DATE OF SERVICE: 06/17/2018 This 82-year-old woman who was admitted with COPD, acute exacerbation, as well as acute bilateral bronchopneumonia is being closely monitored. The patient was also evaluated for possible CHF, acute exacerbation. A 2D echo with Doppler done 2 days ago showed an ejection fraction of about 50% to 60%, and moderate to severe mitral regurgitation was also noted. The patient is being closely monitored at this time. Past medical history reviewed. REVIEW OF SYSTEMS: CARDIOVASCULAR SYSTEM: No angina, palpitations. RESPIRATORY SYSTEM: As mentioned earlier. GI: As mentioned earlier. : No dysuria or retention. NERVOUS SYSTEM: No numbness, weakness. CURRENT MEDICATIONS: Reviewed. They include: 1. Tylenol 650 q.6 p.r.n. 2. DuoNeb q.i.d. and p.r.n. 3. Pulmicort 0.5 b.i.d. 4. Aricept 10 mg p.o. b.i.d. 5. Lasix 20 mg p.o. daily. 6. Mucinex 600 mg p.o. b.i.d. 7. Heparin 5000 units subcutaneously b.i.d. 8. NovoLog before meals and at bedtime. 9. Keppra 750 p.o. b.i.d. 10.Synthroid 50 mcg p.o. daily. 11.Solu-Medrol 60 IV q.6. 12.Lopressor 12.5 mg b.i.d. 13.Protonix 40 mg daily. 14.Zosyn 3.375 IV q.8. PHYSICAL EXAMINATION: Patient is alert, oriented x3. Pulse 88, blood pressure 138/78, respiration 22, temperature 98 degrees, pulse ox 94% on 3 L. HEENT: Conjunctivae normal. Oral mucosa moist. NECK: No jugular venous distention. No carotid bruit. No lymph node enlargement. CARDIOVASCULAR SYSTEM: S1, S2 muffled. RESPIRATORY SYSTEM: Breath sounds diminished at the bases. A few scattered rhonchi and crackles. ABDOMEN: Soft, non-tender. No mass palpable. LEGS: Minimal edema. NERVOUS SYSTEM: Higher functions as mentioned earlier. Moves all 4 limbs. No focal motor or sensory deficit. LYMPHATICS: No lymph node palpable in neck, axillae or groin. SKIN: No ulcer, rash, bleeding. LABS: Labs at this time show WBC 10.1, hemoglobin 11, and creatinine is 1.1. The BNP is 4290. Chest x-ray reviewed personally. ASSESSMENT: 1. Shortness of breath, multifactorial, with chronic obstructive pulmonary disease, acute exacerbation, with acute bilateral bronchopneumonia, possibly gram-negative, as well as congestive heart failure, acute exacerbation, with acute on chronic diastolic dysfunction, ejection fraction 50% to 60%. 2. Hyperkalemia. 3. History of chronic obstructive pulmonary disease and congestive heart failure. 4. Cerebrovascular accident, transient ischemic attack. 5. Dementia. 6. Gastroesophageal reflux disease. 7. Hypertension. 8. Hyperlipidemia. 9. History of myocardial infarction. 10.History of degenerative joint disease. 11.History of pneumonia. 12.History of seizure disorder. 13.History of sleep apnea. 14.Change in mental status, acute on chronic metabolic encephalopathy. 15.History of hypothyroidism. 16.Chronic hypoxic respiratory failure. 17.Obstructive sleep apnea. 18.History of back surgery, degenerative joint disease. 19.History of anxiety. RECOMMENDATIONS AND DISCUSSION: I recommend to continue current medication, continue with the monitoring, symptomatic treatment. Otherwise at this time bronchodilators. Continue the diuretics. Closely follow with Cardiology and Pulmonology. Guarded prognosis because of multiple complex medical issues. Further recommendations to follow. IV steroids, which could be tapered now. Broad-spectrum IV antibiotics. Closely follow with Cardiology as well as Pulmonology. Two-D echo reviewed. MMELZA / JOEY: [id number] /
[2018-06-17 20:27] LABS: Glucose,Whole Blood 148 mg/dL (75-99)
--- NOTE | 2018-06-17 22:43 | P.PN ---
Subjective Progress Note Date: 06/16/18 Progress note being dictated for Dr. Alvarez. Progress note: This 82-year-old female me with acute COPD exacerbation, bilateral bronchopneumonia and multiple other medical issues. 2-D echo reported EF 50 to 60 %, moderate to severe mitral regurgitation. Hypertensive. Maintained on nebulized bronchodilators, IV steroids, broad-spectrum IV antibiotics, IV diuretics .Complains of exertional shortness of breath. Maintaining O2 sats of 94% on 3 L nasal cannula. Afebrile. Urine and blood cultures pending. Creatinine 1.11. Objective - Vital Signs Vital signs: Vital Signs Temp 98 F 06/16/18 20:00 Pulse 86 06/16/18 20:00 Resp 18 06/16/18 20:00 BP 139/72 06/16/18 20:00 Pulse Ox 95 06/16/18 20:00 Intake & Output 06/16/18 06/16/18 06/17/18 06:59 18:59 06:59 Intake Total 240 480 Output Total 450 750 Balance -210 -270 Weight 62.9 kg Intake: Oral 240 480 Output: Urine 450 750 Other: Voiding Method Toilet Toilet # Voids 1 - Exam PHYSICAL EXAM: VITAL SIGNS: [As above] GENERAL: Fragile ,Sitting up in bed, no acute distress HEENT: Conjunctivae normal. eyes normal. Oral mucosa moist.[place]. NECK: No JVD. No thyroid enlargement. No LNs CARDIOVASCULAR: S1, S2 muffled. No murmur RESPIRATION: Breath sounds diminished in the bases. No rhonchi or crackles. Bilateral expiratory wheezing ABDOMEN: Soft, nontender . No guarding. no masses palpable. Bowel sounds heard. LEGS: No edema. no swelling PSYCHIATRY: Alert and oriented -3, mood and affect normal. NERVOUS SYSTEM: Cranial N 2-12 grossly normal. Moves all 4 limbs. Diffuse weakness No focal deficits. Skin: no rash Joints: No active swelling. No inflammation. Lymphatic system. No LN neck axilla or groin. - Labs CBC & Chem 7: 06/17/18 08:19 06/17/18 08:19 Labs: Abnormal Lab Results - Last 24 Hours (Table) 06/16/18 06/16/18 06/16/18 Range/Units 05:54 07:05 07:05 WBC 11.6 H (3.8-10.6) k/uL RBC 3.69 L (3.80-5.40) m/uL Hgb 10.9 L (11.4-16.0) gm/dL MCHC 30.4 L (31.0-37.0) g/dL Neutrophils # 10.7 H (1.3-7.7) k/uL Lymphocytes # 0.4 L (1.0-4.8) k/uL Carbon Dioxide 33 H (22-30) mmol/L BUN 34 H (7-17) mg/dL Glucose 129 H (74-99) mg/dL POC Glucose (mg/dL) 171 H (75-99) mg/dL 06/16/18 06/16/18 06/16/18 Range/Units 11:57 16:19 20:22 WBC (3.8-10.6) k/uL RBC (3.80-5.40) m/uL Hgb (11.4-16.0) gm/dL MCHC (31.0-37.0) g/dL Neutrophils # (1.3-7.7) k/uL Lymphocytes # (1.0-4.8) k/uL Carbon Dioxide (22-30) mmol/L BUN (7-17) mg/dL Glucose (74-99) mg/dL POC Glucose (mg/dL) 113 H 125 H 141 H (75-99) mg/dL Microbiology - Last 24 Hours (Table) 06/14/18 19:50 Blood Culture - Preliminary Blood No Growth after 48 hours 06/15/18 06:39 Urine Culture - Final Urine,Voided Assessment and Plan Assessment: = -acute on chronic hypoxic respiratory failure multifactorial, secondary to acute COPD exacerbation, acute bilateral bronchopneumonia, possibly gram- negative as well as acute on chronic congestive heart failure exacerbation, diastolic dysfunction, EF 50-60% -Dementia -Gastroesophageal reflux disease -Hypertension Plan: Continue current medication regime ,monitoring and symptomatic treatment. Maintain nebulized bronchodilators, steroids, broad-spectrum antibiotics, diuretics. Follow closely with cardiology and pulmonary. Further recommendations to follow. The impression and plan of care has been dictated as directed. : I performed a history and examination of this patient, discussed the same with the dictator. I agree with the dictator's note ,documented as a scribe. Any additional findings or plans will be noted.
[2018-06-17] MEDS: guaiFENesin 600 MG TABLET.ER PO PRN (22:51)
[2018-06-17] MEDS: methylPREDNISolone SOD SUCCI 40 MG/ML 1 ML VIAL IV SCH (23:58)
[2018-06-18] MEDS: methylPREDNISolone SOD SUCCI 40 MG/ML 1 ML VIAL IV SCH ×5 (00:48→17:50)
[2018-06-18] MEDS: PIPERACILLIN-TAZOBACTAM 3.375 GM in SODIUM CHLORIDE 0.9% 100 ML IVPB SCH ×3 (00:56→17:28)
[2018-06-18] MEDS: IPRATROPIUM-ALBUTEROL 3 ML NEB INHALATION PRN ×2 (01:39→04:03)
[2018-06-18 07:09] LABS: Glucose,Whole Blood 178 mg/dL (75-99)
[2018-06-18 07:14] LABS: Basophils % (A) 0 %; Eosinophils % (A) 0 %; HCT 38.8 % (34.0-46.0); HGB 11.8 gm/dL (11.4-16.0); Hypochromasia Slight; Lymphocytes # (A) 0.4 k/uL (1.0-4.8); Lymphocytes % (A) 6 %; MCH 29.9 pg (25.0-35.0); MCHC 30.5 g/dL (31.0-37.0); Mean Platelet Volume 7.1; Monocytes # (A) 0.2 k/uL (0-1.0); Monocytes % (A) 3 %; Neutrophils # (A) 6.5 k/uL (1.3-7.7); Neutrophils % (A) 90 %; Platelet Count 217 k/uL (150-450); RBC 3.96 m/uL (3.80-5.40); RDW 13.4 % (11.5-15.5); WBC 7.3 k/uL (3.8-10.6)
[2018-06-18 07:28] LABS: Calcium 10.2 mg/dL (8.4-10.2); Potassium 4.5 mmol/L (3.5-5.1)
[2018-06-18] MEDS: IPRATROPIUM-ALBUTEROL 3 ML NEB INHALATION SCH ×4 (07:43→20:29)
[2018-06-18] MEDS: BUDESONIDE 0.5 MG/2 ML NEBU INHALATION SCH ×2 (07:43→20:29)
[2018-06-18] MEDS: LEVOTHYROXINE 50 MCG TAB PO SCH (08:26)
[2018-06-18] MEDS: PANTOPRAZOLE 40 MG TABLET PO SCH (08:27)
[2018-06-18] MEDS: HEPARIN SODIUM,PORCINE 5,000 UNIT/ML 1 ML VIAL SQ SCH ×2 (08:27→19:50)
[2018-06-18] MEDS: FUROSEMIDE 20 MG TAB PO SCH (08:27)
[2018-06-18] MEDS: DONEPEZIL 10 MG TAB PO SCH ×2 (08:27→19:48)
[2018-06-18] MEDS: INSULIN ASPART 100 UNIT/ML 1 ML 10 ML VIAL SQ SCH ×4 (08:28→21:56)
[2018-06-18] MEDS: ACETAMINOPHEN TAB 325 MG TAB PO SCH ×2 (08:28→19:49)
[2018-06-18] MEDS: METOPROLOL TARTRATE 12.5 MG TAB PO SCH ×2 (08:28→19:50)
--- NOTE | 2018-06-18 12:20 | P.PN ---
Subjective Progress Note Date: 06/18/18 Principal diagnosis: Acute exacerbation of COPD This is a very pleasant 82-year-old female patient who follows with Dr. De La Paz as her primary care physician. She has a history of hypothyroidism, dementia, hard of hearing, hyperlipidemia, hypertension, osteoarthritis, obstructive sleep apnea not utilizing CPAP in the outpatient setting, chronic obstructive pulmonary disease. She was last month with a COPD exacerbation. She presented here to the emergency room again yesterday with progressive shortness of breath. Her chest x-ray shows no active cardiopulmonary disease. No changes compared to previous on 06/02/2018. Echocardiogram reveals preserved left ventricular systolic function. White count 8.8. Hemoccult and 10.1. Creatinine 0.90. Troponins negative. She is currently maintaining good O2 saturations in the mid 90s on 3 L/m per nasal cannula. She's afebrile. She is seen in consultation in the emergency room. She is currently sitting up on the stretcher eating lunch. She is awake and alert in no acute distress. She has been initiated on DuoNeb inhalations, Pulmicort inhalations, IV Solu-Medrol and empiric antibiotics in the form of Zosyn. She is also been initiated on IV diuretics. The patient was seen again today to 06/16/2018 in follow-up on the selective care unit. She is currently sitting up at the bedside. She is awake and alert in no acute distress. She is still having some complaints of shortness of breath and dyspnea on minimal exertion. She is quite hard of hearing. She is maintaining good O2 saturations in the 90s on 3 L/m per nasal cannula. Afebrile. She is currently hypertensive. Blood and urine culture reveals no growth to date. White count 11.6. Hemoglobin 10.9. Creatinine 1.03. She remains on bronchodilators, IV Solu-Medrol, empiric antibiotics. She also remains on IV diuretics. The patient is seen again today 06/17/2018 in follow-up on the regular medical floor. She is awake and alert in no acute distress. She is currently afebrile. Maintaining good O2 saturations in the mid 90s on 3 L/m per nasal cannula. Hemodynamically stable. A culture reveals no growth. Urine culture reveals no growth. White count 10.1. Hemoglobin 11.0. Creatinine 1.11. She remains on bronchodilators, Pulmicort inhalations, IV Solu-Medrol and antibiotics in the form of Zosyn. Reevaluated today on 06/18/2018, patient was admitted with symptoms of acute exacerbation of COPD, continues to cough and wheeze, there is definite improvement, but not quite ready for discharge planning at this point. Again less coughing less wheezing less shortness of breath, no fever no chills no hemoptysis no chest pain. Patient remains on multiple bronchodilators, steroids , and antibiotics. Labs today were reviewed the seem to be relatively unremarkable, BUN is a bit elevated at 48 creatinine 1.08 CBC is relatively normal. Chest x-ray on admission showed mostly COPD, no evidence of infiltrate Objective - Vital Signs Vital signs: Vital Signs Temp 97.4 F L 06/18/18 04:00 Pulse 95 06/18/18 11:34 Resp 18 06/18/18 04:00 BP 181/89 06/18/18 04:00 Pulse Ox 99 06/18/18 04:00 Intake & Output 06/17/18 06/18/18 06/18/18 18:59 06:59 18:59 Intake Total 680 780 Output Total 450 Balance 230 780 Weight 62.9 kg Intake: IV 100 Piperacillin-Tazobactam 3 100 .375 gm In Sodium Chloride 0.9% 100 ml @ 25 mls/hr IVPB Q8H LAILA Rx#: [id number] Intake, IV Titration 100 100 Amount Piperacillin-Tazobactam 3 100 100 .375 gm In Sodium Chloride 0.9% 100 ml @ 25 mls/hr IVPB Q8H [facility]ILA Rx#: [id number] Oral 480 680 Output: Urine 450 Other: Voiding Method Bedside Commode Bedside Commode # Voids 4 2 # Bowel Movements 1 - Exam Physical Exam: Revealed an 82-year-old female in no distress. Head: Atraumatic normocephalic. HEENT:[Neck is supple.] [No neck masses.] [No thyromegaly.] [No JVD.] Chest: [Scattered rhonchi and wheezes noted bilaterally, more so on forced expiratory maneuver.] Cardiac Exam: [Normal S1 and S2, no S3 gallop, no murmur.] Abdomen: [Soft, nontender, no megaly, no rebound, no guarding, normal bowel sounds.] Extremities: [No clubbing, no edema, no cyanosis.] Neurological Exam: [No focal neurologic deficit. Skin: No rashes. Lymphatics: No lymphadenopathy.] - Labs CBC & Chem 7: 06/18/18 06:39 06/18/18 06:39 Labs: Abnormal Lab Results - Last 24 Hours (Table) 06/17/18 06/18/18 06/18/18 Range/Units 20:26 06:39 06:39 MCHC 30.5 L (31.0-37.0) g/dL Lymphocytes # 0.4 L (1.0-4.8) k/uL Chloride 95 L (98-107) mmol/L Carbon Dioxide 36 H (22-30) mmol/L BUN 48 H (7-17) mg/dL Creatinine 1.08 H (0.52-1.04) mg/dL Glucose 171 H (74-99) mg/dL POC Glucose (mg/dL) 148 H (75-99) mg/dL 06/18/18 Range/Units 07:08 MCHC (31.0-37.0) g/dL Lymphocytes # (1.0-4.8) k/uL Chloride (98-107) mmol/L Carbon Dioxide (22-30) mmol/L BUN (7-17) mg/dL Creatinine (0.52-1.04) mg/dL Glucose (74-99) mg/dL POC Glucose (mg/dL) 178 H (75-99) mg/dL Microbiology - Last 24 Hours (Table) 06/14/18 19:50 Blood Culture - Preliminary Blood No Growth after 72 hours Assessment and Plan Assessment: #1 Acute on chronic hypoxic respiratory failure secondary to an acute exacerbation of chronic obstructive pulmonary disease. Acute tracheobronchitis , no evidence of pneumonia on chest x-ray upon admission #2 Hard of hearing. #3 Dementia. #4 History of CVA/TIA. #5 History of diastolic congestive heart failure. Echocardiogram reveals preserved left ventricular systolic function. #6 Hyperlipidemia. #7 Hypertension. #8 History of myocardial infarction. #9 Osteoarthritis. #10 History of seizure disorder. #11 Obstructive sleep apnea, unsure of compliance in the outpatient setting. #12 Hypothyroidism. Recommendation: Reviewed and discussed with the patient her present treatment plan, will continue present course of treatment including antibiotics and bronchodilators, steroids, not quite ready for discharge planning, obviously has severe underlying COPD, and she is at high risk of readmission, I feel it would be best to hold on discharge planning for now, consider discharge planning in the next 24-48 hours. We'll continue to follow. Time with Patient: Less than 30
[2018-06-18 12:39] LABS: Glucose,Whole Blood 126 mg/dL (75-99)
[2018-06-18 17:24] LABS: Glucose,Whole Blood 164 mg/dL (75-99)
[2018-06-18] MEDS: predniSONE 20 MG TAB PO SCH (17:27)
--- NOTE | 2018-06-18 18:14 | PN ---
PROGRESS NOTE DATE OF SERVICE: 06/18/2018 This 82-year-old woman was admitted with COPD acute exacerbation also had a possible bilateral bronchopneumonia. Patient had CHF acute exacerbation also. Patient is being closely monitored. Dr. Box is following the patient closely. PAST MEDICAL HISTORY: Reviewed. REVIEW OF SYSTEM: CARDIOVASCULAR SYSTEM: No angina. RESPIRATORY SYSTEM: As mentioned earlier. GI: As mentioned earlier. : No dysuria. NERVOUS SYSTEM: No numbness or weakness. MEDICATIONS: Current medications are reviewed and include: 1. Tylenol 650 p.o. b.i.d. 2. DuoNeb q.i.d. and p.r.n. 3. Pulmicort 0.5 b.i.d. 4. Aricept 10 mg p.o. b.i.d. 5. Lasix 20 mg p.o. daily. 6. Mucinex 600 mg p.o. b.i.d. 7. Heparin 5000 subcutaneous b.i.d. 8. NovoLog. 9. Keppra 750 p.o. b.i.d. 10.Solu-Medrol 40 IV q.8. 11.Lopressor 12.5 mg p.o. b.i.d. 12.Protonix 40 mg. 13.Zosyn 3.375 IV q.8. PHYSICAL EXAMINATION: The patient is alert and oriented x2. Pulse 57, blood pressure 160/70, respirations 16, temperature 98 degrees, pulse ox 97% on 3 L. HEENT: Conjunctivae normal. Oral mucosa moist. Neck is no jugular venous distention. No carotid bruit. No lymph node enlargement. CARDIOVASCULAR: S1, S2 muffled. RESPIRATORY: Breath sounds diminished in the bases. A few scattered rhonchi and crackles. Expiratory wheezing also present. ABDOMEN: Soft, nontender. No mass palpable. LEGS: No edema, no swelling. NERVOUS SYSTEM: No focal deficits. LABS: WBC 7.3, hemoglobin 11.8. Creatinine is 1.08 Accu-Cheks are noted. ASSESSMENT: 1. Shortness of breath, multifactorial with chronic obstructive pulmonary disease acute exacerbation as well as acute bilateral bronchopneumonia possibly gram - negative as well as congestive heart failure acute exacerbation with acute on chronic diastolic dysfunction, ejection fraction 50% to 60%. 2. Hyperkalemia. 3. History of chronic obstructive pulmonary disease and congestive heart failure. 4. History of cerebrovascular accident, transient ischemic attack. 5. Dementia. 6. Gastroesophageal reflux disease. 7. Hypertension. 8. History of hyperlipidemia. 9. History of myocardial infarction. 10.History of degenerative joint disease. 11.History of pneumonia. 12.History of seizure disorder. 13.History of sleep apnea. 14.Change in mental status, acute on chronic metabolic encephalopathy. 15.History of hypothyroidism. 16.Chronic hypoxic respiratory failure. 17.Obstructive sleep apnea. 18.History of back surgery, degenerative joint disease. 19.History of anxiety. RECOMMENDATIONS AND DISCUSSION: Recommend to continue current medications. Continue symptomatic treatment with bronchodilators. The patient is on empiric antibiotics. The patient is also on IV steroids. I would recommend to cut down the steroids and monitor closely. The patient is on IV Zosyn. Guarded prognosis because of multiple complex medical issues and further recommendations to follow. See orders for. MMODL / IJN: [id number] / MTDD
[2018-06-18] MEDS: guaiFENesin 600 MG TABLET.ER PO PRN (19:48)
[2018-06-18 20:27] LABS: Glucose,Whole Blood 126 mg/dL (75-99)
[2018-06-19] MEDS: PIPERACILLIN-TAZOBACTAM 3.375 GM in SODIUM CHLORIDE 0.9% 100 ML IVPB SCH ×2 (00:11→08:32)
[2018-06-19] MEDS: IPRATROPIUM-ALBUTEROL 3 ML NEB INHALATION SCH ×4 (06:11→18:49)
[2018-06-19 06:59] LABS: Basophils % (A) 0 %; Eosinophils % (A) 0 %; HCT 36.9 % (34.0-46.0); HGB 11.7 gm/dL (11.4-16.0); Lymphocytes # (A) 1.2 k/uL (1.0-4.8); Lymphocytes % (A) 16 %; MCH 30.6 pg (25.0-35.0); MCHC 31.7 g/dL (31.0-37.0); MCV 96.6 fL (80.0-100.0); Mean Platelet Volume 7.2; Monocytes # (A) 0.5 k/uL (0-1.0); Monocytes % (A) 6 %; Neutrophils % (A) 77 %; Platelet Count 178 k/uL (150-450); RBC 3.82 m/uL (3.80-5.40); RDW 13.3 % (11.5-15.5); WBC 7.9 k/uL (3.8-10.6)
[2018-06-19 07:08] LABS: Glucose,Whole Blood 105 mg/dL (75-99)
[2018-06-19 07:09] LABS: Calcium 10.1 mg/dL (8.4-10.2); Potassium 4.6 mmol/L (3.5-5.1)
[2018-06-19] MEDS: INSULIN ASPART 100 UNIT/ML 1 ML 10 ML VIAL SQ SCH ×4 (08:28→20:21)
[2018-06-19] MEDS: METOPROLOL TARTRATE 12.5 MG TAB PO SCH ×2 (08:32→19:54)
[2018-06-19] MEDS: LEVOTHYROXINE 50 MCG TAB PO SCH (08:32)
[2018-06-19] MEDS: predniSONE 20 MG TAB PO SCH (08:32)
[2018-06-19] MEDS: PANTOPRAZOLE 40 MG TABLET PO SCH (08:33)
[2018-06-19] MEDS: ACETAMINOPHEN TAB 325 MG TAB PO SCH ×2 (08:33→19:53)
[2018-06-19] MEDS: FUROSEMIDE 20 MG TAB PO SCH (08:33)
[2018-06-19] MEDS: HEPARIN SODIUM,PORCINE 5,000 UNIT/ML 1 ML VIAL SQ SCH ×2 (08:33→19:54)
[2018-06-19] MEDS: DONEPEZIL 10 MG TAB PO SCH ×2 (08:33→19:54)
[2018-06-19] MEDS: BUDESONIDE 0.5 MG/2 ML NEBU INHALATION SCH ×2 (09:36→18:49)
[2018-06-19 11:58] LABS: Glucose,Whole Blood 105 mg/dL (75-99)
--- NOTE | 2018-06-19 14:32 | P.PN ---
Subjective Progress Note Date: 06/19/18 Principal diagnosis: Acute exacerbation of COPD This is a very pleasant 82-year-old female patient who follows with Dr. De La Paz as her primary care physician. She has a history of hypothyroidism, dementia, hard of hearing, hyperlipidemia, hypertension, osteoarthritis, obstructive sleep apnea not utilizing CPAP in the outpatient setting, chronic obstructive pulmonary disease. She was last month with a COPD exacerbation. She presented here to the emergency room again yesterday with progressive shortness of breath. Her chest x-ray shows no active cardiopulmonary disease. No changes compared to previous on 06/02/2018. Echocardiogram reveals preserved left ventricular systolic function. White count 8.8. Hemoccult and 10.1. Creatinine 0.90. Troponins negative. She is currently maintaining good O2 saturations in the mid 90s on 3 L/m per nasal cannula. She's afebrile. She is seen in consultation in the emergency room. She is currently sitting up on the stretcher eating lunch. She is awake and alert in no acute distress. She has been initiated on DuoNeb inhalations, Pulmicort inhalations, IV Solu-Medrol and empiric antibiotics in the form of Zosyn. She is also been initiated on IV diuretics. The patient was seen again today to 06/16/2018 in follow-up on the selective care unit. She is currently sitting up at the bedside. She is awake and alert in no acute distress. She is still having some complaints of shortness of breath and dyspnea on minimal exertion. She is quite hard of hearing. She is maintaining good O2 saturations in the 90s on 3 L/m per nasal cannula. Afebrile. She is currently hypertensive. Blood and urine culture reveals no growth to date. White count 11.6. Hemoglobin 10.9. Creatinine 1.03. She remains on bronchodilators, IV Solu-Medrol, empiric antibiotics. She also remains on IV diuretics. The patient is seen again today 06/17/2018 in follow-up on the regular medical floor. She is awake and alert in no acute distress. She is currently afebrile. Maintaining good O2 saturations in the mid 90s on 3 L/m per nasal cannula. Hemodynamically stable. A culture reveals no growth. Urine culture reveals no growth. White count 10.1. Hemoglobin 11.0. Creatinine 1.11. She remains on bronchodilators, Pulmicort inhalations, IV Solu-Medrol and antibiotics in the form of Zosyn. Reevaluated today on 06/18/2018, patient was admitted with symptoms of acute exacerbation of COPD, continues to cough and wheeze, there is definite improvement, but not quite ready for discharge planning at this point. Again less coughing less wheezing less shortness of breath, no fever no chills no hemoptysis no chest pain. Patient remains on multiple bronchodilators, steroids , and antibiotics. Labs today were reviewed the seem to be relatively unremarkable, BUN is a bit elevated at 48 creatinine 1.08 CBC is relatively normal. Chest x-ray on admission showed mostly COPD, no evidence of infiltrate Reevaluated today on 06/19/2018, patient is doing well from the pulmonary perspective, hardly any cough, no wheezing, no shortness of breath. Remains on multiple bronchodilators, steroids, antibiotics, I feel the patient is getting very close to be considered for discharge planning. CBC was normal. Basic metabolic profile is normal, BUN is up to 45, and creatinine is up to 1.14, hence may have to cut down on the Lasix. We will also consider stopping her Zosyn, and possibly start the patient on Augmentin. She is already on prednisone orally instead of Solu-Medrol. I feel the patient has made a significant improvement, and again seriously consider discharge planning in the next 24 hours. Objective - Vital Signs Vital signs: Vital Signs Temp 97.4 F L 06/19/18 12:58 Pulse 65 06/19/18 12:58 Resp 16 06/19/18 12:58 BP 153/91 06/19/18 12:58 Pulse Ox 98 06/19/18 12:58 Intake & Output 06/18/18 06/19/18 06/19/18 18:59 06:59 18:59 Intake Total 750 Balance 750 Intake: Oral 750 Other: Voiding Method Bedside Commode Bedside Commode Bedside Commode # Voids 4 4 - Exam Physical Exam: Revealed an 82-year-old female in no distress. Head: Atraumatic normocephalic. HEENT:[Neck is supple.] [No neck masses.] [No thyromegaly.] [No JVD.] Chest: [Diminished breath sounds at the bases, no crackles or rhonchi or wheezes. Cardiac Exam: [Normal S1 and S2, no S3 gallop, no murmur.] Abdomen: [Soft, nontender, no megaly, no rebound, no guarding, normal bowel sounds.] Extremities: [No clubbing, no edema, no cyanosis.] Neurological Exam: [No focal neurologic deficit. Skin: No rashes. Lymphatics: No lymphadenopathy.] - Labs CBC & Chem 7: 06/19/18 06:21 06/19/18 06:21 Labs: Abnormal Lab Results - Last 24 Hours (Table) 06/18/18 06/18/18 06/19/18 Range/Units 17:22 20:26 06:21 Carbon Dioxide 39 H (22-30) mmol/L BUN 45 H (7-17) mg/dL Creatinine 1.14 H (0.52-1.04) mg/dL Glucose 112 H (74-99) mg/dL POC Glucose (mg/dL) 164 H 126 H (75-99) mg/dL 06/19/18 06/19/18 Range/Units 07:07 11:57 Carbon Dioxide (22-30) mmol/L BUN (7-17) mg/dL Creatinine (0.52-1.04) mg/dL Glucose (74-99) mg/dL POC Glucose (mg/dL) 105 H 105 H (75-99) mg/dL Microbiology - Last 24 Hours (Table) 06/14/18 19:50 Blood Culture - Preliminary Blood No Growth after 96 hours Assessment and Plan Assessment: #1 Acute on chronic hypoxic respiratory failure secondary to an acute exacerbation of chronic obstructive pulmonary disease. Acute tracheobronchitis , no evidence of pneumonia on chest x-ray upon admission #2 Hard of hearing. #3 Dementia. #4 History of CVA/TIA. #5 History of diastolic congestive heart failure. Echocardiogram reveals preserved left ventricular systolic function. #6 Hyperlipidemia. #7 Hypertension. #8 History of myocardial infarction. #9 Osteoarthritis. #10 History of seizure disorder. #11 Obstructive sleep apnea, unsure of compliance in the outpatient setting. #12 Hypothyroidism. Recommendation: Change Zosyn to Augmentin, discontinue Lasix, continue prednisone at 40 mg daily, continue Pulmicort updrafts twice a day, continue albuterol and ipratropium bromide 4 times a day and when necessary. Continue the rest of the medications as listed consider discharge planning in the next 24 hours. And patient should have outpatient follow-up with us on a regular basis. Again her long-term prognosis remains guarded. Patient is to remain on her other meds including levothyroxine for hypothyroidism, Keppra for seizure disorder, and Aricept for her dementia. Time with Patient: Less than 30
[2018-06-19] MEDS: AMOXIC-POT CLAV 875-125MG 1 EACH TAB PO SCH ×2 (15:24→19:54)
[2018-06-19 16:57] LABS: Glucose,Whole Blood 144 mg/dL (75-99)
[2018-06-19] MEDS: guaiFENesin 600 MG TABLET.ER PO PRN (19:54)
[2018-06-19 20:08] LABS: Glucose,Whole Blood 129 mg/dL (75-99)
--- NOTE | 2018-06-19 22:07 | PN ---
PROGRESS NOTE DATE OF SERVICE: 06/19/2018 This 82-year-old woman was admitted to the hospital with chronic obstructive pulmonary disease acute exacerbation. Being closely monitored. Patient also had bilateral bronchopneumonia. No chest pain. No palpitations. . Dr. Box is following the patient closely. The patient on IV antibiotics. EXAM: Alert and oriented times three. Pulse 75. Blood pressure 160/70. Respiratory rate 18. Temperature 97.2, pulse ox 94% on 3 L. HEENT is conjunctivae normal. NECK: No jugular venous distention. CARDIOVASCULAR: S1, S2. RESPIRATORY: Bilateral scattered rhonchi and crackles. ABDOMEN soft. NERVOUS SYSTEM: No focal deficits. LABS: CBC within normal limits. Creatinine 1.14. Further labs are noted. ASSESSMENT: 1. Shortness of breath, multifactorial, chronic obstructive pulmonary disease, acute exacerbation as well with acute bilateral bronchopneumonia possibly gram- negative as well as congestive heart failure acute exacerbation with acute on chronic diastolic dysfunction, ejection fraction 50-60 percent. 2. Hyperkalemia. 3. History of chronic obstructive pulmonary disease and congestive heart failure. 4. History of cerebrovascular accident, transient ischemic attack. 5. Dementia. 6. Gastroesophageal reflux disease. 7. Hypertension. 8. History of hyperlipidemia. 9. History of myocardial infarction. 10.History of degenerative joint disease. 11.History of pneumonia. 12.History of seizure disorder. 13.History of sleep apnea. 14.Change in mental status acute on chronic metabolic encephalopathy. 15.History of hypothyroidism. 16.History of chronic hypoxic respiratory failure. 17.History of obstructive sleep apnea. 18.History of back surgery 19.History of anxiety. RECOMMENDATIONS AND DISCUSSION: Recommend to continue current medications, continue current treatment, management and symptomatic treatment. Otherwise at this time, continue with the antibiotics. Her breathing is significantly improved. Continue with bronchodilators. Continue with p.o. steroids and continue with antibiotics. Closely follow with Dr. Box. Guarded prognosis. Further recommendations to follow. MMODL / IJN: [id number] / MTDD
[2018-06-19] MEDS: IPRATROPIUM-ALBUTEROL 3 ML NEB INHALATION PRN (23:12)
[2018-06-20] MEDS: IPRATROPIUM-ALBUTEROL 3 ML NEB INHALATION PRN (03:07)
[2018-06-20 06:57] LABS: Glucose,Whole Blood 77 mg/dL (75-99)
[2018-06-20] MEDS: INSULIN ASPART 100 UNIT/ML 1 ML 10 ML VIAL SQ SCH ×4 (07:19→22:21)
[2018-06-20 07:58] LABS: Basophils % (A) 0 %; Eosinophils % (A) 0 %; HCT 36.9 % (34.0-46.0); HGB 11.1 gm/dL (11.4-16.0); Hypochromasia Slight; Lymphocytes # (A) 1.9 k/uL (1.0-4.8); Lymphocytes % (A) 26 %; MCH 29.4 pg (25.0-35.0); MCHC 30.1 g/dL (31.0-37.0); MCV 97.8 fL (80.0-100.0); Mean Platelet Volume 6.9; Monocytes # (A) 0.4 k/uL (0-1.0); Monocytes % (A) 6 %; Neutrophils # (A) 4.9 k/uL (1.3-7.7); Neutrophils % (A) 66 %; Platelet Count 188 k/uL (150-450); RBC 3.78 m/uL (3.80-5.40); RDW 13.5 % (11.5-15.5); WBC 7.5 k/uL (3.8-10.6)
[2018-06-20] MEDS: BUDESONIDE 0.5 MG/2 ML NEBU INHALATION SCH ×2 (07:58→20:03)
[2018-06-20] MEDS: IPRATROPIUM-ALBUTEROL 3 ML NEB INHALATION SCH ×4 (07:58→20:03)
[2018-06-20 08:12] LABS: Calcium 9.9 mg/dL (8.4-10.2); Potassium 4.7 mmol/L (3.5-5.1)
[2018-06-20] MEDS: PANTOPRAZOLE 40 MG TABLET PO SCH (10:13)
[2018-06-20] MEDS: ACETAMINOPHEN TAB 325 MG TAB PO SCH ×2 (10:13→20:48)
[2018-06-20] MEDS: AMOXIC-POT CLAV 875-125MG 1 EACH TAB PO SCH ×2 (10:13→20:49)
[2018-06-20] MEDS: DONEPEZIL 10 MG TAB PO SCH ×2 (10:14→20:44)
[2018-06-20] MEDS: HEPARIN SODIUM,PORCINE 5,000 UNIT/ML 1 ML VIAL SQ SCH ×2 (10:14→20:49)
[2018-06-20] MEDS: LEVOTHYROXINE 50 MCG TAB PO SCH (10:16)
[2018-06-20] MEDS: predniSONE 20 MG TAB PO SCH (10:16)
[2018-06-20] MEDS: METOPROLOL TARTRATE 12.5 MG TAB PO SCH ×2 (10:16→20:51)
[2018-06-20 11:04] LABS: Glucose,Whole Blood 88 mg/dL (75-99)
--- NOTE | 2018-06-20 14:06 | P.PN ---
Subjective Progress Note Date: 06/20/18 Principal diagnosis: Acute exacerbation of COPD This is a very pleasant 82-year-old female patient who follows with Dr. De La Paz as her primary care physician. She has a history of hypothyroidism, dementia, hard of hearing, hyperlipidemia, hypertension, osteoarthritis, obstructive sleep apnea not utilizing CPAP in the outpatient setting, chronic obstructive pulmonary disease. She was last month with a COPD exacerbation. She presented here to the emergency room again yesterday with progressive shortness of breath. Her chest x-ray shows no active cardiopulmonary disease. No changes compared to previous on 06/02/2018. Echocardiogram reveals preserved left ventricular systolic function. White count 8.8. Hemoccult and 10.1. Creatinine 0.90. Troponins negative. She is currently maintaining good O2 saturations in the mid 90s on 3 L/m per nasal cannula. She's afebrile. She is seen in consultation in the emergency room. She is currently sitting up on the stretcher eating lunch. She is awake and alert in no acute distress. She has been initiated on DuoNeb inhalations, Pulmicort inhalations, IV Solu-Medrol and empiric antibiotics in the form of Zosyn. She is also been initiated on IV diuretics. The patient was seen again today to 06/16/2018 in follow-up on the selective care unit. She is currently sitting up at the bedside. She is awake and alert in no acute distress. She is still having some complaints of shortness of breath and dyspnea on minimal exertion. She is quite hard of hearing. She is maintaining good O2 saturations in the 90s on 3 L/m per nasal cannula. Afebrile. She is currently hypertensive. Blood and urine culture reveals no growth to date. White count 11.6. Hemoglobin 10.9. Creatinine 1.03. She remains on bronchodilators, IV Solu-Medrol, empiric antibiotics. She also remains on IV diuretics. The patient is seen again today 06/17/2018 in follow-up on the regular medical floor. She is awake and alert in no acute distress. She is currently afebrile. Maintaining good O2 saturations in the mid 90s on 3 L/m per nasal cannula. Hemodynamically stable. A culture reveals no growth. Urine culture reveals no growth. White count 10.1. Hemoglobin 11.0. Creatinine 1.11. She remains on bronchodilators, Pulmicort inhalations, IV Solu-Medrol and antibiotics in the form of Zosyn. Reevaluated today on 06/18/2018, patient was admitted with symptoms of acute exacerbation of COPD, continues to cough and wheeze, there is definite improvement, but not quite ready for discharge planning at this point. Again less coughing less wheezing less shortness of breath, no fever no chills no hemoptysis no chest pain. Patient remains on multiple bronchodilators, steroids , and antibiotics. Labs today were reviewed the seem to be relatively unremarkable, BUN is a bit elevated at 48 creatinine 1.08 CBC is relatively normal. Chest x-ray on admission showed mostly COPD, no evidence of infiltrate Reevaluated today on 06/19/2018, patient is doing well from the pulmonary perspective, hardly any cough, no wheezing, no shortness of breath. Remains on multiple bronchodilators, steroids, antibiotics, I feel the patient is getting very close to be considered for discharge planning. CBC was normal. Basic metabolic profile is normal, BUN is up to 45, and creatinine is up to 1.14, hence may have to cut down on the Lasix. We will also consider stopping her Zosyn, and possibly start the patient on Augmentin. She is already on prednisone orally instead of Solu-Medrol. I feel the patient has made a significant improvement, and again seriously consider discharge planning in the next 24 hours. On 2018 patient seen in follow-up on medical surgical floor. She is pretty lethargic and sedated today, there is a product safety coordinator at the bedside. Apparently earlier in the morning patient was trying to get up out of bed unassisted, was confused. Currently sleeping in bed, on 3 units per nasal cannula, pulse ox is 98%, respirations are even and nonlabored, patient is afebrile, hemodynamically stable, lung sounds are positive for a few scattered rhonchi. Breath sounds are stable, urine and blood cultures are negative. No fever or chills. Remains on empiric antibiotics in the form of Augmentin, on nebulized bronchodilators, and oral prednisone. Objective - Vital Signs Vital signs: Vital Signs Temp 97.5 F L 06/20/18 12:32 Pulse 77 06/20/18 12:32 Resp 16 06/20/18 12:32 BP 157/66 06/20/18 12:32 Pulse Ox 98 01/07/19 12:32 Intake & Output 06/19/18 06/20/18 06/20/18 18:59 06:59 18:59 Intake Total 500 1290 Balance 500 1290 Weight 62.5 kg Intake: Oral 500 1290 Other: Voiding Method Bedside Commode Toilet Toilet # Voids 3 1 1 # Bowel Movements 1 1 - Exam Physical Exam: Revealed an 82-year-old female in no distress. Sleeping, does not appear to be in any distress Head: Atraumatic normocephalic. HEENT:[Neck is supple.] [No neck masses.] [No thyromegaly.] [No JVD.] Chest: [Diminished breath sounds at the bases, a few scattered rhonchi Cardiac Exam: [Normal S1 and S2, no S3 gallop, no murmur.] Abdomen: [Soft, nontender, no megaly, no rebound, no guarding, normal bowel sounds.] Extremities: [No clubbing, no edema, no cyanosis.] Neurological Exam: [No focal neurologic deficit. Skin: No rashes. Lymphatics: No lymphadenopathy.] - Labs CBC & Chem 7: 06/20/18 07:05 06/20/18 07:05 Labs: Abnormal Lab Results - Last 24 Hours (Table) 06/19/18 06/19/18 06/20/18 Range/Units 16:56 20:07 07:05 RBC 3.78 L (3.80-5.40) m/uL Hgb 11.1 L (11.4-16.0) gm/dL MCHC 30.1 L (31.0-37.0) g/dL Carbon Dioxide (22-30) mmol/L BUN (7-17) mg/dL POC Glucose (mg/dL) 144 H 129 H (75-99) mg/dL 06/20/18 Range/Units 07:05 RBC (3.80-5.40) m/uL Hgb (11.4-16.0) gm/dL MCHC (31.0-37.0) g/dL Carbon Dioxide 37 H (22-30) mmol/L BUN 46 H (7-17) mg/dL POC Glucose (mg/dL) (75-99) mg/dL Microbiology - Last 24 Hours (Table) 06/14/18 19:50 Blood Culture - Preliminary Blood No Growth after 120 hours Assessment and Plan Plan: Assessment: #1 Acute on chronic hypoxic respiratory failure secondary to an acute exacerbation of chronic obstructive pulmonary disease. Acute tracheobronchitis , no evidence of pneumonia on chest x-ray upon admission #2 Hard of hearing. #3 Dementia. #4 History of CVA/TIA. #5 History of diastolic congestive heart failure. Echocardiogram reveals preserved left ventricular systolic function. #6 Hyperlipidemia. #7 Hypertension. #8 History of myocardial infarction. #9 Osteoarthritis. #10 History of seizure disorder. #11 Obstructive sleep apnea, unsure of compliance in the outpatient setting. #12 Hypothyroidism. Plan: Patient remains stable, vital signs are stable, no worsening shortness of breath , continues on empiric antibiotics, no fever or chills. From pulmonary perspective patient can be considered for discharge home in the next 24 hours. I performed a history & physical examination of the patient and discussed their management with my nurse practitioner, Veronique Cobb. I reviewed the nurse practitioner's note and agree with the documented findings and plan of care. Lung sounds are few scattered rhonchi. The findings and the impression was discussed with the patient. I attest to the documentation by the nurse practitioner. Time with Patient: Less than 30
[2018-06-20 17:15] LABS: Glucose,Whole Blood 132 mg/dL (75-99)
[2018-06-20 20:15] LABS: Glucose,Whole Blood 125 mg/dL (75-99)
--- NOTE | 2018-06-20 20:50 | PN ---
PROGRESS NOTE DATE OF SERVICE: 06/20/2018. PRESENTING COMPLAINT: Short of breath, cough. INTERVAL HISTORY: Patient admitted with COPD exacerbation, occasional cough and wheezing. Did tolerate some diet. Feeling tired and rundown. Lying in bed. REVIEW OF SYSTEMS: Done for constitutional, cardiovascular, GI, pulmonary; relevant findings as above. CURRENT MEDICATIONS: Reviewed. They include DuoNeb, Augmentin, oral prednisone. PHYSICAL EXAMINATION: Temperature 97.5, pulse 77, respiration 16, blood pressure 157/66, pulse ox 98% on 3 L. GENERAL APPEARANCE: Lying in bed, tired-appearing. HEENT: Decreased hearing. EYES: Pupils equal. Conjunctivae normal. NECK: JVD not raised. Mass not palpable. RESPIRATORY: Effort increased. LUNGS: Decreased breath sounds. Prolonged expiration. CARDIOVASCULAR: First and second sounds normal. No edema. ABDOMEN: Soft, non-tender. Liver and spleen not palpable. PSYCHIATRY: Answering simple questions. INVESTIGATIONS: White count 7.5, hemoglobin 11.1, potassium 4.7, BUN 46, creatinine 1.0. Accu-Cheks 88, 132. ASSESSMENT: 1. Acute chronic obstructive pulmonary disease exacerbation. 2. 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 3. Gastroesophageal reflux disease. 4. Hard of hearing. 5. Essential hypertension. 6. Hyperlipidemia. 7. Primary osteoarthritis. 8. Chronic seizure disorder. 9. Hypothyroid. 10.Chronic hypoxic respiratory failure. 11.Obstructive sleep apnea. Does not use CPAP. 12.Coronary artery disease with prior history of myocardial infarction. PLAN: The patient is probably close to her baseline. Discussed with her. Looking at patient probably being discharged in the next 24 hours. MMODL / IJN: [id number] /
[2018-06-20] MEDS: guaiFENesin 600 MG TABLET.ER PO PRN (20:51)
[2018-06-21] MEDS: IPRATROPIUM-ALBUTEROL 3 ML NEB INHALATION PRN (03:04)
[2018-06-21] MEDS: IPRATROPIUM-ALBUTEROL 3 ML NEB INHALATION SCH ×4 (06:59→20:47)
[2018-06-21] MEDS: BUDESONIDE 0.5 MG/2 ML NEBU INHALATION SCH ×2 (06:59→20:47)
[2018-06-21 07:03] LABS: Glucose,Whole Blood 88 mg/dL (75-99)
[2018-06-21] MEDS: INSULIN ASPART 100 UNIT/ML 1 ML 10 ML VIAL SQ SCH ×4 (07:36→21:40)
[2018-06-21] MEDS: ACETAMINOPHEN TAB 325 MG TAB PO SCH ×2 (08:26→21:39)
[2018-06-21] MEDS: METOPROLOL TARTRATE 12.5 MG TAB PO SCH ×2 (08:26→21:40)
[2018-06-21] MEDS: predniSONE 20 MG TAB PO SCH (08:26)
[2018-06-21] MEDS: LEVOTHYROXINE 50 MCG TAB PO SCH ×2 (08:26→08:30)
[2018-06-21] MEDS: PANTOPRAZOLE 40 MG TABLET PO SCH ×2 (08:26→08:30)
[2018-06-21] MEDS: DONEPEZIL 10 MG TAB PO SCH ×2 (08:30→21:40)
[2018-06-21] MEDS: HEPARIN SODIUM,PORCINE 5,000 UNIT/ML 1 ML VIAL SQ SCH ×2 (08:30→21:40)
[2018-06-21] MEDS: AMOXIC-POT CLAV 875-125MG 1 EACH TAB PO SCH ×2 (08:30→21:40)
[2018-06-21 11:17] LABS: Glucose,Whole Blood 97 mg/dL (75-99)
--- NOTE | 2018-06-21 12:44 | P.PN ---
Subjective Progress Note Date: 06/21/18 Principal diagnosis: Acute exacerbation of COPD This is a very pleasant 82-year-old female patient who follows with Dr. De La Paz as her primary care physician. She has a history of hypothyroidism, dementia, hard of hearing, hyperlipidemia, hypertension, osteoarthritis, obstructive sleep apnea not utilizing CPAP in the outpatient setting, chronic obstructive pulmonary disease. She was last month with a COPD exacerbation. She presented here to the emergency room again yesterday with progressive shortness of breath. Her chest x-ray shows no active cardiopulmonary disease. No changes compared to previous on 06/02/2018. Echocardiogram reveals preserved left ventricular systolic function. White count 8.8. Hemoccult and 10.1. Creatinine 0.90. Troponins negative. She is currently maintaining good O2 saturations in the mid 90s on 3 L/m per nasal cannula. She's afebrile. She is seen in consultation in the emergency room. She is currently sitting up on the stretcher eating lunch. She is awake and alert in no acute distress. She has been initiated on DuoNeb inhalations, Pulmicort inhalations, IV Solu-Medrol and empiric antibiotics in the form of Zosyn. She is also been initiated on IV diuretics. The patient was seen again today to 06/16/2018 in follow-up on the selective care unit. She is currently sitting up at the bedside. She is awake and alert in no acute distress. She is still having some complaints of shortness of breath and dyspnea on minimal exertion. She is quite hard of hearing. She is maintaining good O2 saturations in the 90s on 3 L/m per nasal cannula. Afebrile. She is currently hypertensive. Blood and urine culture reveals no growth to date. White count 11.6. Hemoglobin 10.9. Creatinine 1.03. She remains on bronchodilators, IV Solu-Medrol, empiric antibiotics. She also remains on IV diuretics. The patient is seen again today 06/17/2018 in follow-up on the regular medical floor. She is awake and alert in no acute distress. She is currently afebrile. Maintaining good O2 saturations in the mid 90s on 3 L/m per nasal cannula. Hemodynamically stable. A culture reveals no growth. Urine culture reveals no growth. White count 10.1. Hemoglobin 11.0. Creatinine 1.11. She remains on bronchodilators, Pulmicort inhalations, IV Solu-Medrol and antibiotics in the form of Zosyn. Reevaluated today on 06/18/2018, patient was admitted with symptoms of acute exacerbation of COPD, continues to cough and wheeze, there is definite improvement, but not quite ready for discharge planning at this point. Again less coughing less wheezing less shortness of breath, no fever no chills no hemoptysis no chest pain. Patient remains on multiple bronchodilators, steroids , and antibiotics. Labs today were reviewed the seem to be relatively unremarkable, BUN is a bit elevated at 48 creatinine 1.08 CBC is relatively normal. Chest x-ray on admission showed mostly COPD, no evidence of infiltrate Reevaluated today on 06/19/2018, patient is doing well from the pulmonary perspective, hardly any cough, no wheezing, no shortness of breath. Remains on multiple bronchodilators, steroids, antibiotics, I feel the patient is getting very close to be considered for discharge planning. CBC was normal. Basic metabolic profile is normal, BUN is up to 45, and creatinine is up to 1.14, hence may have to cut down on the Lasix. We will also consider stopping her Zosyn, and possibly start the patient on Augmentin. She is already on prednisone orally instead of Solu-Medrol. I feel the patient has made a significant improvement, and again seriously consider discharge planning in the next 24 hours. On 2018 patient seen in follow-up on medical surgical floor. She is pretty lethargic and sedated today, there is a safety deposit supervisor at the bedside. Apparently earlier in the morning patient was trying to get up out of bed unassisted, was confused. Currently sleeping in bed, on 3 units per nasal cannula, pulse ox is 98%, respirations are even and nonlabored, patient is afebrile, hemodynamically stable, lung sounds are positive for a few scattered rhonchi. Breath sounds are stable, urine and blood cultures are negative. No fever or chills. Remains on empiric antibiotics in the form of Augmentin, on nebulized bronchodilators, and oral prednisone. On 06/21/2018 patient seen in follow-up on medical surgical floor, she is more awake on today's exam, she states her breathing is improving, she is in no acute distress. Pulse oximetry on 3 l per nasal cannula is 97%, patient is afebrile, hemodynamically stable, lung sounds are positive for a few scattered rhonchi, no wheezes. Objective - Vital Signs Vital signs: Vital Signs Temp 97.2 F L 06/21/18 11:40 Pulse 76 06/21/18 11:40 Resp 16 06/21/18 11:40 BP 153/83 06/21/18 11:40 Pulse Ox 97 06/21/18 11:40 Intake & Output 06/20/18 06/21/18 06/21/18 18:59 06:59 18:59 Intake Total 540 Balance 540 Weight 62 kg Intake: Oral 540 Other: Voiding Method Toilet Toilet Toilet # Voids 2 2 # Bowel Movements 1 1 - Exam Physical Exam: Revealed an 82-year-old female in no distress. Awake and alert, in no acute distress Head: Atraumatic normocephalic. HEENT:[Neck is supple.] [No neck masses.] [No thyromegaly.] [No JVD.] Chest: [Diminished breath sounds at the bases, a few scattered rhonchi Cardiac Exam: [Normal S1 and S2, no S3 gallop, no murmur.] Abdomen: [Soft, nontender, no megaly, no rebound, no guarding, normal bowel sounds.] Extremities: [No clubbing, no edema, no cyanosis.] Neurological Exam: [No focal neurologic deficit. Skin: No rashes. Lymphatics: No lymphadenopathy.] - Labs CBC & Chem 7: 06/20/18 07:05 06/20/18 07:05 Labs: Abnormal Lab Results - Last 24 Hours (Table) 06/20/18 06/20/18 Range/Units 17:12 20:08 POC Glucose (mg/dL) 132 H 125 H (75-99) mg/dL Microbiology - Last 24 Hours (Table) 06/14/18 19:50 Blood Culture - Final Blood No Growth after 144 hours Assessment and Plan Plan: Assessment: #1 Acute on chronic hypoxic respiratory failure secondary to an acute exacerbation of chronic obstructive pulmonary disease. Acute tracheobronchitis , no evidence of pneumonia on chest x-ray upon admission #2 Hard of hearing. #3 Dementia. #4 History of CVA/TIA. #5 History of diastolic congestive heart failure. Echocardiogram reveals preserved left ventricular systolic function. #6 Hyperlipidemia. #7 Hypertension. #8 History of myocardial infarction. #9 Osteoarthritis. #10 History of seizure disorder. #11 Obstructive sleep apnea, unsure of compliance in the outpatient setting. #12 Hypothyroidism. Plan: Vital signs are stable, patient is improving, breathing is easier, she is close to her baseline, urine and blood cultures are negative thus far. Pulmonary perspective patient is stable, and could be discharged home today, to finish outpatient course of Augmentin, prednisone taper, and her nebulized bronchodilators. Follow-up with Dr. Kauffman in the office in a week. I performed a history & physical examination of the patient and discussed their management with my nurse practitioner, Veronique Cobb. I reviewed the nurse practitioner's note and agree with the documented findings and plan of care. Lung sounds are few scattered rhonchi. The findings and the impression was discussed with the patient. I attest to the documentation by the nurse practitioner. Time with Patient: Less than 30
[2018-06-21 15:00] VITALS: BMI 25.0
--- NOTE | 2018-06-21 16:11 | CDI ---
Documentation Clarification Form Date: 06/21/2018 3:58:04 PM From: Avani FRED May, CCDS Admit Date: 06/14/2018 8:53:00 PM Patient Name: Sweta Arguello Visit Number: [id number] Discharge Date: ATTENTION: The Clinical Documentation Specialists (CDI) and [facility] Coding Staff appreciate your assistance in clarifying documentation. Please respond to the clarification below the line at the bottom and electronically sign. The CDI & [facility] Coding staff will review the response and follow-up if needed. Please note: Queries are made part of the Legal Health Record. If you have any questions, please contact the author of this message via ITS. Dr. Torres Chavarria: Per the History & Physical on 06/15 and subsequent progress notes by the attending , the patient is admitted with COPD acute exacerbation and bilateral pneumonia, possibly gram-negative. Per the Pulmonary Consult and subsequent progress notes: Acute exacerbation of COPD. No clear evidence of pneumonia. History/Risk Factors: COPD, GERD, Hypertension, Hyperlipidemia, Sleep apnea, Chronic hypoxic respiratory failure and previous CVA. Clinical Indicators: Presented with weakness, SOB & congestion. Recent admit on 06/04, discharged 06/05, diagnosed & treated for COPD exac with acute bronchitis. Vital signs: T 97.3*, P 104^, R 24-28^ (labored, sob, cough, shallow, tachypnea) , BP 154/81, PO 94 on 2.5L nc LAB: WBC 11.6^, Neut 9.9* Blood & urine cultures negative (final) X-ray: CXR: No heart failure nor confluent pneumonic infiltrate. No active cardiopulmonary disease. Treatment: Albuterol INH, Atrovent INH, IV solumedrol, IV Lasix, IV Toradol, IV Zosyn, O2. In order to capture the severity of condition, please clarify if the condition signifies and you are treating for or is pneumonia ruled out: Pneumonia ruled out Bacterial Pneumonia, specify causal organism (if known) Viral Pneumonia, specify casual organism (if known) Healthcare Acquired Pneumonia/Pneumonia, unspecified Other, please specify Unable to determine (Last Revision: September 2017) NO Pneumonia MTDD
[2018-06-21 16:59] LABS: Glucose,Whole Blood 138 mg/dL (75-99)
[2018-06-21 20:53] LABS: Glucose,Whole Blood 170 mg/dL (75-99)
--- NOTE | 2018-06-22 03:13 | PN ---
PROGRESS NOTE DATE OF SERVICE: June 21, 2018. PRESENTING COMPLAINT: Short of breath. INTERVAL HISTORY: Patient admitted with COPD exacerbation. Tolerating a diet. Lying in bed. When I walked in, patient actually was sleeping. When I asked her how she was doing, she said "I am short of breath, need another breathing treatment". Minimal cough. No sputum. REVIEW OF SYSTEMS: Done for constitutional, cardiovascular, GI, pulmonary; relevant findings as above. CURRENT MEDICATIONS: Reviewed, they include bronchodilator and steroids. PHYSICAL EXAMINATION: VITAL SIGNS: Temperature 97.1, pulse 68, respirations 16, blood pressure 162/78, pulse ox 97% on 2 L. GENERAL APPEARANCE: Lying in bed, tired. EYES: Pupils equal. Conjunctivae normal. HEENT decreased hearing. NECK: JVD not raised. Mass not palpable. RESPIRATORY: Effort increased. LUNGS: Decreased breath sounds. Prolonged expiration. CARDIOVASCULAR: First and second sounds normal. No edema. ABDOMEN: Soft, nontender. Liver and spleen not palpable. PSYCHIATRY: Answering simple questions. INVESTIGATIONS: Accu-Cheks are noted. ASSESSMENT: 1. Acute chronic obstructive pulmonary disease exacerbation, rather advanced. The patient has had multiple admissions to the hospital and at baseline poorly. We will talk to the patient's daughter if she would consider hospice. I think patient's prognosis is not good. 2. 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 3. Gastroesophageal reflux disease. 4. Hard of hearing. 5. Essential hypertension. 6. Hyperlipidemia. 7. Primary osteoarthritis. 8. Chronic seizure disorder. 9. Hypothyroid. 10.Chronic hypoxic respiratory failure. 11.Obstructive sleep apnea does not use CPAP. 12.Coronary artery disease prior history of myocardial infarction. PLAN: Prognosis is not good. Continue medication and treatment plan. Daughter is not currently present. We will talk to her tomorrow and with discussion about possible hospice. Given patient's overall poor functional status and multiple admissions from the same. MMODL / IJN: [id number] /
[2018-06-22 07:09] LABS: Glucose,Whole Blood 264 mg/dL (75-99)
[2018-06-22] MEDS: INSULIN ASPART 100 UNIT/ML 1 ML 10 ML VIAL SQ SCH ×4 (07:40→21:18)
[2018-06-22] MEDS: PANTOPRAZOLE 40 MG TABLET PO SCH (07:40)
[2018-06-22] MEDS: predniSONE 20 MG TAB PO SCH (07:40)
[2018-06-22] MEDS: METOPROLOL TARTRATE 12.5 MG TAB PO SCH ×2 (07:40→21:26)
[2018-06-22] MEDS: HEPARIN SODIUM,PORCINE 5,000 UNIT/ML 1 ML VIAL SQ SCH ×2 (07:41→21:27)
[2018-06-22] MEDS: ACETAMINOPHEN TAB 325 MG TAB PO SCH ×2 (07:41→21:26)
[2018-06-22] MEDS: DONEPEZIL 10 MG TAB PO SCH ×2 (07:44→21:27)
[2018-06-22] MEDS: AMOXIC-POT CLAV 875-125MG 1 EACH TAB PO SCH ×2 (07:44→21:26)
[2018-06-22] MEDS: BUDESONIDE 0.5 MG/2 ML NEBU INHALATION SCH ×2 (08:36→20:17)
[2018-06-22] MEDS: IPRATROPIUM-ALBUTEROL 3 ML NEB INHALATION SCH ×4 (08:37→20:17)
[2018-06-22 11:12] LABS: Glucose,Whole Blood 130 mg/dL (75-99)
--- NOTE | 2018-06-22 14:22 | P.PN ---
Subjective Progress Note Date: 06/22/18 Principal diagnosis: Acute exacerbation of COPD This is a very pleasant 82-year-old female patient who follows with Dr. De La Paz as her primary care physician. She has a history of hypothyroidism, dementia, hard of hearing, hyperlipidemia, hypertension, osteoarthritis, obstructive sleep apnea not utilizing CPAP in the outpatient setting, chronic obstructive pulmonary disease. She was last month with a COPD exacerbation. She presented here to the emergency room again yesterday with progressive shortness of breath. Her chest x-ray shows no active cardiopulmonary disease. No changes compared to previous on 06/02/2018. Echocardiogram reveals preserved left ventricular systolic function. White count 8.8. Hemoccult and 10.1. Creatinine 0.90. Troponins negative. She is currently maintaining good O2 saturations in the mid 90s on 3 L/m per nasal cannula. She's afebrile. She is seen in consultation in the emergency room. She is currently sitting up on the stretcher eating lunch. She is awake and alert in no acute distress. She has been initiated on DuoNeb inhalations, Pulmicort inhalations, IV Solu-Medrol and empiric antibiotics in the form of Zosyn. She is also been initiated on IV diuretics. The patient was seen again today to 06/16/2018 in follow-up on the selective care unit. She is currently sitting up at the bedside. She is awake and alert in no acute distress. She is still having some complaints of shortness of breath and dyspnea on minimal exertion. She is quite hard of hearing. She is maintaining good O2 saturations in the 90s on 3 L/m per nasal cannula. Afebrile. She is currently hypertensive. Blood and urine culture reveals no growth to date. White count 11.6. Hemoglobin 10.9. Creatinine 1.03. She remains on bronchodilators, IV Solu-Medrol, empiric antibiotics. She also remains on IV diuretics. The patient is seen again today 06/17/2018 in follow-up on the regular medical floor. She is awake and alert in no acute distress. She is currently afebrile. Maintaining good O2 saturations in the mid 90s on 3 L/m per nasal cannula. Hemodynamically stable. A culture reveals no growth. Urine culture reveals no growth. White count 10.1. Hemoglobin 11.0. Creatinine 1.11. She remains on bronchodilators, Pulmicort inhalations, IV Solu-Medrol and antibiotics in the form of Zosyn. Reevaluated today on 06/18/2018, patient was admitted with symptoms of acute exacerbation of COPD, continues to cough and wheeze, there is definite improvement, but not quite ready for discharge planning at this point. Again less coughing less wheezing less shortness of breath, no fever no chills no hemoptysis no chest pain. Patient remains on multiple bronchodilators, steroids , and antibiotics. Labs today were reviewed the seem to be relatively unremarkable, BUN is a bit elevated at 48 creatinine 1.08 CBC is relatively normal. Chest x-ray on admission showed mostly COPD, no evidence of infiltrate Reevaluated today on 06/19/2018, patient is doing well from the pulmonary perspective, hardly any cough, no wheezing, no shortness of breath. Remains on multiple bronchodilators, steroids, antibiotics, I feel the patient is getting very close to be considered for discharge planning. CBC was normal. Basic metabolic profile is normal, BUN is up to 45, and creatinine is up to 1.14, hence may have to cut down on the Lasix. We will also consider stopping her Zosyn, and possibly start the patient on Augmentin. She is already on prednisone orally instead of Solu-Medrol. I feel the patient has made a significant improvement, and again seriously consider discharge planning in the next 24 hours. On 2018 patient seen in follow-up on medical surgical floor. She is pretty lethargic and sedated today, there is a consumer safety officer at the bedside. Apparently earlier in the morning patient was trying to get up out of bed unassisted, was confused. Currently sleeping in bed, on 3 units per nasal cannula, pulse ox is 98%, respirations are even and nonlabored, patient is afebrile, hemodynamically stable, lung sounds are positive for a few scattered rhonchi. Breath sounds are stable, urine and blood cultures are negative. No fever or chills. Remains on empiric antibiotics in the form of Augmentin, on nebulized bronchodilators, and oral prednisone. On 06/21/2018 patient seen in follow-up on medical surgical floor, she is more awake on today's exam, she states her breathing is improving, she is in no acute distress. Pulse oximetry on 3 l per nasal cannula is 97%, patient is afebrile, hemodynamically stable, lung sounds are positive for a few scattered rhonchi, no wheezes. On 06/22/2018 patient seen in follow-up on medical surgical floor. She is resting quietly in bed, in no acute distress, lung sounds are diminished, her breathing is improving, no significant wheezing, there are some scattered rhonchi, no worsening dyspnea. On 2 l per nasal cannula her pulse ox is 97%, afebrile, cultures negative. Patient was supposed to be discharged home, attending physician is meeting with the patient's daughter regarding initiation of palliative/hospice care. The meeting is scheduled for sometime today. Her pulmonary perspective patient is stable for discharge, agree with hospice, overall long-term prognosis is extremely poor with patient's poor lung function , multiple comorbidities, current hospitalizations, and recurrent exacerbation of COPD and pulmonary infections. Objective - Vital Signs Vital signs: Vital Signs Temp 98 F 06/22/18 13:00 Pulse 80 06/22/18 13:00 Resp 22 06/22/18 13:00 BP 148/80 06/22/18 13:00 Pulse Ox 97 06/22/18 13:00 Intake & Output 06/21/18 06/22/18 06/22/18 18:59 06:59 18:59 Intake Total 1420 Balance 1420 Weight 62 kg 64 kg Intake: Oral 1420 Other: Voiding Method Toilet Toilet Toilet Diaper Diaper Incontinent Incontinent # Voids 1 3 # Bowel Movements 1 2 - Exam Physical Exam: Revealed an 82-year-old female in no distress. Awake and alert, in no acute distress Head: Atraumatic normocephalic. HEENT:[Neck is supple.] [No neck masses.] [No thyromegaly.] [No JVD.] Chest: [Diminished breath sounds at the bases, a few scattered rhonchi Cardiac Exam: [Normal S1 and S2, no S3 gallop, no murmur.] Abdomen: [Soft, nontender, no megaly, no rebound, no guarding, normal bowel sounds.] Extremities: [No clubbing, no edema, no cyanosis.] Neurological Exam: [No focal neurologic deficit. Skin: No rashes. Lymphatics: No lymphadenopathy.] - Labs CBC & Chem 7: 06/20/18 07:05 06/20/18 07:05 Labs: Abnormal Lab Results - Last 24 Hours (Table) 06/21/18 06/21/18 06/22/18 Range/Units 16:57 20:52 07:07 POC Glucose (mg/dL) 138 H 170 H 264 H (75-99) mg/dL 06/22/18 Range/Units 11:09 POC Glucose (mg/dL) 130 H (75-99) mg/dL Assessment and Plan Plan: Assessment: #1 Acute on chronic hypoxic respiratory failure secondary to an acute exacerbation of chronic obstructive pulmonary disease. Acute tracheobronchitis , no evidence of pneumonia on chest x-ray upon admission #2 Hard of hearing. #3 Dementia. #4 History of CVA/TIA. #5 History of diastolic congestive heart failure. Echocardiogram reveals preserved left ventricular systolic function. #6 Hyperlipidemia. #7 Hypertension. #8 History of myocardial infarction. #9 Osteoarthritis. #10 History of seizure disorder. #11 Obstructive sleep apnea, unsure of compliance in the outpatient setting. #12 Hypothyroidism. Plan: Agree with hospice/palliative care. From pulmonary perspective patient is stable for discharge home or to ECF under hospice. Breathing is improving, no significant congestion, no wheezing. Vital signs are stable, cultures are negative, no fever or chills. Patient can finish outpatient course of antibiotics, prednisone taper, and continue on her nebulized bronchodilators and inhalers. I performed a history & physical examination of the patient and discussed their management with my nurse practitioner, Veronique Cobb. I reviewed the nurse practitioner's note and agree with the documented findings and plan of care. Lung sounds are few scattered rhonchi. The findings and the impression was discussed with the patient. I attest to the documentation by the nurse practitioner. Time with Patient: Less than 30
[2018-06-22 17:28] LABS: Glucose,Whole Blood 127 mg/dL (75-99)
[2018-06-22 20:25] LABS: Glucose,Whole Blood 108 mg/dL (75-99)
[2018-06-23] MEDS: IPRATROPIUM-ALBUTEROL 3 ML NEB INHALATION PRN ×2 (00:11→03:35)
--- NOTE | 2018-06-23 00:33 | PN ---
PROGRESS NOTE DATE OF SERVICE: 06/22/2018. PRESENTING COMPLAINT: Short of breath. INTERVAL HISTORY: The patient was admitted with COPD exacerbation. Lying in bed. Anytime I talk to her she says "I am short of breath." Really is not moving much from baseline. Has been tolerating a diet. REVIEW OF SYSTEMS: Attempted for constitutional, cardiovascular, GI, pulmonary; relevant findings as above. CURRENT MEDICATIONS: Reviewed, that include DuoNeb, oral prednisone, Augmentin. PHYSICAL EXAMINATION: Temperature 97.3, pulse 58, respirations 19, blood pressure 140/80, pulse ox 97% on 2 L. GENERAL APPEARANCE: Lying in bed, tired-appearing. EYES: Pupils equal. Conjunctivae normal. HEENT: Decreased hearing. NECK: JVD not raised. Mass not palpable. LUNGS: Decreased breath sounds. Prolonged expiration cardiovascular. CARDIOVASCULAR: 1st and 2nd sounds. No edema. ABDOMEN: Soft, nontender. Liver and spleen not palpable. PSYCHIATRY: Does answer simple questions. INVESTIGATIONS: Accu-Cheks are noted. ASSESSMENT: 1. Acute severe chronic obstructive pulmonary disease exacerbation, rather end-stage with multiple admissions, doing poorly. 2. Acute tracheobronchitis. No pneumonia. 3. 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 4. Gastroesophageal reflux disease. 5. Hard of hearing. 6. Essential hypertension. 7. Hyperlipidemia. 8. Primary osteoarthritis. 9. Chronic seizure disorder. 10.Hypothyroid. 11.Chronic hypoxic respiratory failure from underlying chronic obstructive pulmonary disease. 12.Obstructive sleep apnea, does not use CPAP. 13.Coronary artery disease with prior history of myocardial infarction. PLAN: I did speak to patient's daughter about the patient doing poorly. Pulmonary also agrees about hospice. Plan for a family meeting tomorrow afternoon. Will DC patient's Augmentin. MMODL / IJN: [id number] /
[2018-06-23] MEDS: INSULIN ASPART 100 UNIT/ML 1 ML 10 ML VIAL SQ SCH ×3 (07:06→14:56)
[2018-06-23 07:10] LABS: Glucose,Whole Blood 73 mg/dL (75-99)
[2018-06-23] MEDS: BUDESONIDE 0.5 MG/2 ML NEBU INHALATION SCH (07:43)
[2018-06-23] MEDS: IPRATROPIUM-ALBUTEROL 3 ML NEB INHALATION SCH ×3 (07:43→15:31)
[2018-06-23] MEDS: METOPROLOL TARTRATE 12.5 MG TAB PO SCH (08:31)
[2018-06-23] MEDS: PANTOPRAZOLE 40 MG TABLET PO SCH (08:31)
[2018-06-23] MEDS: LEVOTHYROXINE 50 MCG TAB PO SCH (08:31)
[2018-06-23] MEDS: DONEPEZIL 10 MG TAB PO SCH (08:32)
[2018-06-23] MEDS: ACETAMINOPHEN TAB 325 MG TAB PO SCH (08:32)
[2018-06-23] MEDS: HEPARIN SODIUM,PORCINE 5,000 UNIT/ML 1 ML VIAL SQ SCH (08:32)
[2018-06-23] MEDS ORDERED: predniSONE 10 MG TAB PO SCH (09:00)
[2018-06-23 11:17] LABS: Glucose,Whole Blood 87 mg/dL (75-99)
[2018-06-23 11:58] VITALS: BP 138/63; RESP 20; TEMP 97.8
[2018-06-23 15:35] VITALS: PULSE 72
--- NOTE | 2018-06-24 07:08 | DS ---
DISCHARGE SUMMARY DATE OF ADMISSION: 06/14/2018 DATE OF DISCHARGE: 06/23/2018 FINAL DIAGNOSES: 1. Acute severe chronic obstructive pulmonary disease exacerbation, end stage. 2. Acute tracheobronchitis, no pneumonia. 3. 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 4. Gastroesophageal reflux disease. 5. Hard of hearing. 6. Essential hypertension. 7. Hyperlipidemia. 8. Primary osteoarthritis. 9. Chronic seizure disorder. 10.Hypothyroid. 11.Chronic hypoxic respiratory failure from underlying chronic obstructive pulmonary disease. 12.Obstructive sleep apnea, does not use CPAP. 13.Coronary artery prior, prior history of myocardial infarction. CONSULTATION: Dr. Kauffman and colleagues from Pulmonary, Dr. Amaury Reid and colleagues from Cardiology. HOSPITAL COURSE: This patient yet again presented with COPD exacerbation, acute tracheobronchitis, did show some improvement, but patient end-stage COPD. The patient had multiple admissions, any time she wakes up she wants a breathing treatment. Quality of life is poor. I discussed with Dr. Kauffman today. He is also of the opinion that the patient is appropriate for hospice. PHYSICAL EXAMINATION: Temperature 97.8 pulse 61, respiration 20, blood pressure 138/63, pulse ox 93%. On examination of lungs decreased breath sounds. RESPIRATORY: is increased. DISCHARGE MEDICATIONS: 1. Synthroid 50 mcg a day. 2. Lopressor 12.5 p.o. b.i.d. 3. Pulmicort 0.5 mg b.i.d. 4. Ventolin nebulizer q.4 p.r.n. 5. Keppra 750 mg b.i.d. 6. Tylenol Arthritis 650 mg b.i.d. 7. DuoNeb q.i.d. 8. Prednisone 10 mg a day. 9. Ativan 1 mg q.4 p.r.n. 10.Roxanol 20 mg/mL 5 mg p.o. q.4 p.r.n. 11.Scopolamine patch q.72 hours for secretions. DISPOSITION: Home with palliative care. Follow up with Dr. De La Paz. [facility] as requested by the daughter. ADVANCED CARE PLANNING: Had a meeting with the patient's 2 daughters and son. They do understand patient's overall poor prognosis, had questions that were answered and they agree that the patient's quality of life has been very poor. Initially, they agreed with hospice. Later they wanted to just go with palliative care for right now, understanding although this may be leading to hospice. Oxygen p.r.n. The patient's daughter did chose [facility]. I did speak to them at that time. Patient already has a hospital bed at home. Total time spent for advanced care planning was about 30 to 35 minutes in addition to the discharge. KARLA / JOEY: [id number] /
== END 2018-06-23 17:05 | disposition home health service (06) | DRG 190 ==
LOC: EC 19:19 → 3SCARD 20:53 → 3NMEDONC 06-16 18:09
PROVIDERS: ADMIT Hospitalist; ATTEND Hospitalist
DX: J44.1 Chronic obstructive pulmonary disease with (acute) exacerbation (principal); J96.21 Acute and chronic respiratory failure with hypoxia; G93.41 Metabolic encephalopathy; I50.33 Acute on chronic diastolic (congestive) heart failure; J44.0 Chronic obstructive pulmonary disease with (acute) lower respiratory infection; J20.9 Acute bronchitis, unspecified; E03.9 Hypothyroidism, unspecified; E78.5 Hyperlipidemia, unspecified; E87.5 Hyperkalemia; F02.80 Dementia in other diseases classified elsewhere, unspecified severity, without behavioral disturbance, psychotic disturbance, mood disturbance, and anxiety; G30.1 Alzheimer's disease with late onset; G40.909 Epilepsy, unspecified, not intractable, without status epilepticus; G47.33 Obstructive sleep apnea (adult) (pediatric); H54.7 Unspecified visual loss; H91.90 Unspecified hearing loss, unspecified ear; I08.3 Combined rheumatic disorders of mitral, aortic and tricuspid valves; I11.0 Hypertensive heart disease with heart failure; I25.10 Atherosclerotic heart disease of native coronary artery without angina pectoris; I25.2 Old myocardial infarction; Z86.73 Personal history of transient ischemic attack (TIA), and cerebral infarction without residual deficits; K21.9 Gastro-esophageal reflux disease without esophagitis; M19.90 Unspecified osteoarthritis, unspecified site; Z79.3 Long term (current) use of hormonal contraceptives; Z79.51 Long term (current) use of inhaled steroids; Z79.899 Other long term (current) drug therapy; Z88.8 Allergy status to other drugs, medicaments and biological substances; Z82.49 Family history of ischemic heart disease and other diseases of the circulatory system; Z87.01 Personal history of pneumonia (recurrent); Z98.1 Arthrodesis status; Z51.5 Encounter for palliative care; F41.9 Anxiety disorder, unspecified
CPT/HCPCS: 36415; 71046; 80048; 80053; 81003; 82550; 82553; 83036; 83605; 83735; 83880; 84484; 85025; 85610; 85730; 87040; 87086; 87502; 93005; 93306; 94640; 94644; 94760; 96365; 96366; 96372; 96375; 96376; 99285

== ENCOUNTER 2018-08-07 15:50 | Emergency (ER) | payer MEDICARE ==
--- NOTE | 2018-08-07 16:00 | ED ---
CPR HPI - General Stated Complaint: Cardiac arrest Time Seen by Provider: 08/07/18 15:54 Source: RN notes reviewed, old records reviewed - History of Present Illness Initial Comments: This is an 82-year-old female the ER for evaluation. Presents today for evaluation regarding CPR CPA. Family called. Patient having cardiac arrest was involved in becoming unresponsive. EMS on the scene, EMS does provide history, patient did have original asystolic CPR was given epi and started compressions, patient was intubated, patient then did have V. tach which then deteriorated back into asystole. Patient remains asystolic upon arrival to the emergency room with no pulse MD Complaint: found unresponsive, collapsed during rest -: hour(s) (1) Place: home Bystander CPR Performed: Yes AED Applied by Bystander/Carp[facility] Streetcar: Yes Shock Advised: Yes Number of Shocks Delivered: 1 Initial Findings in the Field: unresponsive, no respirations, no pulse ROSC in the Field: No Associated Injuries: Yes (Subcutaneous emphysema) Associated Symptoms: other (None) Treatments Prior to Arrival: intubation, chest compressions, defibrillated shocks # (1), epinephrine mgs # (3) - Related Data Home Medications Medication Instructions Recorded Confirmed Levothyroxine Sodium [Synthroid] 50 mcg PO DAILY 04/01/14 06/14/18 Metoprolol Tartrate [Lopressor] 12.5 mg PO BID 04/01/14 06/14/18 Budesonide [Pulmicort] 0.5 mg INHALATION RT-BID 04/01/15 06/14/18 Albuterol Nebulized [Ventolin 2.5 mg INHALATION RT-Q4H PRN 05/25/17 06/14/18 Nebulized] levETIRAcetam [Keppra] 750 mg PO BID 09/16/17 06/14/18 Acetaminophen [Tylenol Arthritis] 650 mg PO Q12HR 06/02/18 06/14/18 Previous Rx's Medication Instructions Recorded Ipratropium-Albuterol Nebulize 3 ml INHALATION QID #120 ampul.neb 06/05/18 [Duoneb 0.5 mg-3 mg/3 ml Soln] predniSONE 10 mg PO DAILY #30 tab 06/05/18 LORazepam [Ativan] 1 mg PO Q4H PRN #30 tablet 06/23/18 MORPHINE ORAL NEO CONC 20mg/mL 5 mg PO Q4H PRN #30 ml 06/23/18 [Roxanol Oral Soln Conc 20Mg/ml] Scopolamine 1.5MG/72Hr Patch 1 patch TRANSDERM Q72H #10 patch 06/23/18 [TransDerm Scop] Allergies Allergy/AdvReac Type Severity Reaction Status Date / Time alprazolam [From Xanax] AdvReac Hallucinati Verified 06/14/18 20:02 ons lorazepam [From Ativan] AdvReac Hallucinati Verified 06/14/18 20:02 ons phenytoin sodium AdvReac Hallucinati Verified 06/14/18 20:02 [From Dilantin] ons Review of Systems ROS Statement: Those systems with pertinent positive or pertinent negative responses have been documented in the HPI. ROS Other: All systems not noted in ROS Statement are negative. Past Medical History Past Medical History: Heart Failure, COPD, CVA/TIA, Dementia, GERD/Reflux, Hearing Disorder / Deafness, Hyperlipidemia, Hypertension, Myocardial Infarction (HI), Osteoarthritis (OA), Pneumonia, Seizure Disorder, Sleep Apnea/ CPAP/BIPAP, Thyroid Disorder Additional Past Medical History / Comment(s): COPD, chronic hypoxic respiratory failure, impaired hearing, impaired vision, obstructive sleep apnea but she does not utilize any CPAP therapy, remote history of C. diff colitis, hypothyroidism, previous TIA, dementia, acid reflux, coronary artery disease with previous myocardial infarction, seizure disorder, calcified gallstone Last Myocardial Infarction Date:: UNK History of Any Multi-Drug Resistant Organisms: None Reported Past Surgical History: Back Surgery Additional Past Surgical History / Comment(s): Carpal tunnel release involving the right hand, back surgery involving laminectomy and fusion. She has had also previous lumpectomy Past Anesthesia/Blood Transfusion Reactions: No Reported Reaction Smoking Status: Never smoker - Past Family History Father Additional Family Medical History / Comment(s): AT AGE 89 Mother Family Medical History: Hypertension Additional Family Medical History / Comment(s): AT AGE 47. HAD HX RHEUMATIC FEVER General Exam Limitations: altered mental status, physical limitation General appearance: obtunded Head exam: Present: atraumatic, normocephalic, normal inspection Eye exam: Present: other (Pupils are fixed and dilated). Absent: scleral icterus, conjunctival injection, periorbital swelling ENT exam: Present: normal exam, mucous membranes moist Neck exam: Present: normal inspection. Absent: tenderness, meningismus, lymphadenopathy Respiratory exam: Present: normal lung sounds bilaterally. Absent: respiratory distress, wheezes, rales, rhonchi, stridor Cardiovascular Exam: Present: other (Patient does have significant subcutaneous emphysema over anterior chest wall). Absent: systolic murmur, diastolic murmur , rubs, gallop, clicks GI/Abdominal exam: Present: soft, normal bowel sounds. Absent: distended, tenderness, guarding, rebound, rigid Extremities exam: Present: normal inspection, full ROM, normal capillary refill. Absent: tenderness, pedal edema, joint swelling, calf tenderness Back exam: Present: normal inspection Skin exam: Present: pallor, mottled. Absent: rash Course - Reevaluation(s) Reevaluation #1: 08/07/18 15:58 Medical record is reviewed noncontributory Reevaluation #2: 08/07/18 15:58 Patient remaining asystolic despite CPR care ACLS care. Patient pronounced at 1554 Reevaluation #3: 08/07/18 15:58 Spoke with family regarding patient's mortality, questions are answered Reevaluation #4: 08/07/18 15:58 Spoke with neuropsychology medical consultant body is released in body is released Spoke with family doctor Medical Decision Making - Medical Decision Making 82 female the ER status post cardiopulmonary arrest cardiopulmonary resuscitation unsuccessful. Patient pronounced Disposition Clinical Impression: Cardiopulmonary arrest Disposition: Condition: Critical Is patient prescribed a controlled substance at d/c from ED?: No Referrals: Kilo De La Paz MD [Primary Care Provider] - 1-2 days Preliminary Cause of : CPA
== END 2018-08-07 19:02 | disposition expired ==
LOC: EC 15:50
DX: I46.9 Cardiac arrest, cause unspecified (principal); T79.7XXA Traumatic subcutaneous emphysema, initial encounter; I11.0 Hypertensive heart disease with heart failure; I50.9 Heart failure, unspecified; J44.9 Chronic obstructive pulmonary disease, unspecified; I25.2 Old myocardial infarction; G40.909 Epilepsy, unspecified, not intractable, without status epilepticus; E03.9 Hypothyroidism, unspecified; I25.10 Atherosclerotic heart disease of native coronary artery without angina pectoris; G47.33 Obstructive sleep apnea (adult) (pediatric); Z99.89 Dependence on other enabling machines and devices; Z86.73 Personal history of transient ischemic attack (TIA), and cerebral infarction without residual deficits; Z79.890 Hormone replacement therapy; Z79.51 Long term (current) use of inhaled steroids; Z79.899 Other long term (current) drug therapy; Z88.8 Allergy status to other drugs, medicaments and biological substances
CPT/HCPCS: 92950; 99285